=== PATIENT | male | born 1960 | race African-American/Black ===

== ENCOUNTER 2021-07-01 12:57 | Outpatient (REF) | payer MEDICARE, MEDICAID, SELFPAY ==
--- NOTE | ~2021-07-01 | XR_ITS ---
EXAMINATION: XR CERVICAL SPINE CLINICAL INFORMATION: Radiculopathy. Cervicalgia. COMPARISON: None TECHNIQUE: 5 views of the cervical spine were obtained. FINDINGS: There is no fracture or subluxation. Vertebral body height and alignment maintained. Mild disc space narrowing of C4-C5. Small multilevel endplate osteophytes. On the right and left there is neuroforaminal narrowing at C2-C3, C3-C4, and C4-C5. The prevertebral soft tissues are unremarkable. The atlantoaxial joint is well aligned. The dens is intact. The lung apices are clear. XR/XR cervical spine 4V IMPRESSION: Moderate degenerative changes of the cervical spine as above.
== END 2021-07-01 12:58 | disposition home or self-care (01) ==
LOC: HO.XRAY 12:57
PROVIDERS: PCP Internal Medicine Geriatric Medicine; Visit Provider Internal Medicine Geriatric Medicine
DX: M54.2 Cervicalgia (principal); M54.10 Radiculopathy, site unspecified
CPT/HCPCS: 72050

== ENCOUNTER 2022-07-26 13:10 | Emergency (ER) | payer MEDICARE, MEDICAID, SELFPAY ==
[2022-07-26 16:29] VITALS: BP 160/77; PULSE 86; RESP 18; TEMP 36.7; O2SAT 97; BMI 36.1
--- NOTE | 2022-07-26 16:30 | ED.GENADULT ---
HPI - General Adult General Chief complaint: Upper Respiratory Symptoms <Purvi Little MD - Last Filed: 07/26/22 16:31> Stated complaint: Sore Throat Weakness <Purvi Little MD - Last Filed: 07/26/22 16:31> Time Seen by Provider: 07/26/22 17:35 <Purvi Little MD - Last Filed: 07/26/22 16:31> Source: patient <Marj Brooks MD - Last Filed: 07/26/22 17:48> Mode of arrival: ambulatory <Marj Brooks MD - Last Filed: 07/26/22 17:48> Limitations: no limitations <Marj Brooks MD - Last Filed: 07/26/22 17:48> History of Present Illness HPI narrative: Patient comes emergency room complaining of cough and sore throat for about 5 days. Patient denies chest pain or shortness of breath. Patient denies fever chills <Marj Brooks MD - Last Filed: 07/26/22 17:48> Related Data Home medications: Previous Rx's Medication Instructions Recorded acetaminophen 500 mg capsule 500 mg PO Q6H PRN fever or pain 07/26/22 #20 caps <Purvi Little MD - Last Filed: 07/26/22 16:31> Allergies/adverse reactions: Allergies Allergy/AdvReac Type Severity Reaction Status Date / Time oxycodone [OXYCODONE] Allergy Unknown HIVES Verified 07/26/22 16:28 <Purvi Little MD - Last Filed: 07/26/22 16:31> Review of Systems Review of Systems: Constitutional : No Weight loss, No Fever, No Chills, No Night Sweats, No Fatigue, No Malaise ENT/Mouth : No Hearing loss, No Ear Pain, No Nasal Congestion, No Sinus Pain, No Hoarseness, complaining of mild sore throat, No Rhinorrhea, No Swallowing Difficulty Eyes: No Eye Pain, No Swelling, No Redness, No Foreign Body, No Discharge, No Vision Changes Cardiovascular : No Chest Pain, No SOB, No Dyspnea on Exertion, No Orthopnea, No Edema, No Palpitations Respiratory : No Cough, No Sputum, No Wheezing, No Smoke Exposure, No Dyspnea Gastrointestinal : No Nausea, No Vomiting, No Diarrhea, No Constipation, No abdominal Pain, No Hematochezia, No Melena Genitourinary : no irregular bleeding, No Dysuria, No Urinary Frequency, No Hematuria, No Urinary Incontinence, No Urgency, No Flank Pain, No Urinary Flow Changes, No Hesitancy Musculoskeletal : No joint pain, No Myalgias, No Joint Swelling Skin : No Skin Lesions, No rash Neuro : No Weakness, No Numbness, No Paresthesias, No Loss of Consciousness, No Dizziness, No Headache Psych : No Anxiety/Panic, No Depression, No SI/HI/AH/VH, No Social Issues, Heme/Lymph: No Bruising, No Bleeding,No Lymphadenopathy Endocrine : No Polyuria, No Polydipsia, No Temperature Intolerance <Marj Brooks MD - Last Filed: 07/26/22 17:48> [facility] Social History Social History: Social History Advance Directives: No Advance Directives Information Provided: Yes <Purvi Little MD - Last Filed: 07/26/22 16:31> Physical Exam ED Vital Signs: Vital Signs - 24 hr 07/26/22 16:29 Temperature 98.0 F Pulse Rate 86 Respiratory Rate 18 Blood Pressure 160/77 H Pulse Oximetry 97 Oxygen Delivery Method Room Air BMI result Body Mass Index 36.1 <Purvi Little MD - Last Filed: 07/26/22 16:31> Vital Signs - 24 hr 07/26/22 16:29 Temperature 98.0 F Pulse Rate 86 Respiratory Rate 18 Blood Pressure 160/77 H Pulse Oximetry 97 Oxygen Delivery Method Room Air BMI result Body Mass Index 36.1 <Marj Brooks MD - Last Filed: 07/26/22 17:48> Const Other: Appearance: Alert. Oriented X3. No acute distress. Eyes: Pupils equal, round and reactive to light. ENT: Pharynx normal. Mildly erythematous, no exudates, no abscesses, clear airway Neck: Normal inspection. Neck supple. No lymph nodes noted. No crepitus CVS: Normal heart rate and rhythm. Pulses normal. Normal S1 and S2 Respiratory: No respiratory distress. Breath sounds normal. No Wheezing. No rales Abdomen: Soft and nontender. No rigidity. No distention. Skin: Skin warm and dry. Normal skin color. Normal skin turgor. Extremities: No lower extremity edema. No Lacerations. No Rash Neuro: Oriented X 3. No motor deficit. No sensory deficit. Moving all extremities. No slurred speech. CN 2 through 12 grossly intact Psych: calm, cooperative, normal affect <Marj Brooks MD - Last Filed: 07/26/22 17:48> Course Course Course Narrative: 62M hx DM p/w cough, sore throat and fatigue since evening and decreased appetite. Otherwise, no SOB or chest pain. VITAL SIGNS: Reviewed. GENERAL: Well developed, well nourished, in no acute distress. HEAD: Normocephalic/atraumatic EYES: PERRLA, EOMI EARS: Ext canals without abnormality, TMs non-bulging and non-erythematous NOSE: Nares patent bilateral OROPHARYNX: no oral lesions noted, posterior pharynx clear and non-erythematous without noted tonsillar enlargement/erythema/exudates NECK: Supple, no adenopathy LUNGS: Normal breath sounds. No adventitious sounds or accessory muscle use. CARDIOVASCULAR: Regular rate and rhythm without noted murmurs ABDOMEN: Soft, non-tender, non-distended with bowel sounds. SKIN: Inspection of the skin reveals no rashes NEUROLOGIC: Alert and oriented x 4. Strength and sensation to light touch were grossly intact x 4. <Purvi Little MD - Last Filed: 07/26/22 16:31> Reevaluation(s) Reevaluation #1: Patient tested negative for influenza a and B, RSV, COVID and strep. Patient likely having a viral illness. Patient is well-appearing, oxygen saturation 97% on room air. <Marj Brooks MD - Last Filed: 07/26/22 17:48> Medical Decision Making Lab Data Labs: Lab Results 07/26/22 07/26/22 Range/Units 16:34 16:34 Influenza Type A (PCR) NEGATIVE (Negative) Influenza Type B (PCR) NEGATIVE (Negative) RSV RNA Qual (PCR) NEGATIVE (Negative) SARS-CoV-2 RNA (RT-PCR) NEGATIVE (Negative) S. pyogenes GrpA DANYEL Negative (Negative) <Purvi Little MD - Last Filed: 07/26/22 16:31> Lab Results 07/26/22 07/26/22 Range/Units 16:34 16:34 Influenza Type A (PCR) NEGATIVE (Negative) Influenza Type B (PCR) NEGATIVE (Negative) RSV RNA Qual (PCR) NEGATIVE (Negative) SARS-CoV-2 RNA (RT-PCR) NEGATIVE (Negative) S. pyogenes GrpA DANYEL Negative (Negative) <Marj Brooks MD - Last Filed: 07/26/22 17:48> Discharge Plan Discharge Clinical Impression: Acute viral pharyngitis <Purvi Little MD - Last Filed: 07/26/22 16:31> Patient Disposition: Home, Self-Care <Purvi Little MD - Last Filed: 07/26/22 16:31> Instructions: Pharyngitis (ED) <Purvi Little MD - Last Filed: 07/26/22 16:31> Additional Instructions: Please follow-up with your primary care physician tomorrow. If you have any worsening or new symptoms, please return to the emergency room or call 911 <Purvi Little MD - Last Filed: 07/26/22 16:31> Prescriptions: New acetaminophen 500 mg capsule 500 mg PO Q6H PRN (Reason: fever or pain) Qty: 20 0RF <Purvi Little MD - Last Filed: 07/26/22 16:31>
[2022-07-26 16:57] LABS: Strep A Nucleic Acid Negative (Negative)
[2022-07-26 17:26] LABS: Influenza A PCR NEGATIVE (Negative); Influenza B PCR NEGATIVE (Negative); Resp Syncy Virus RNA Qual PCR NEGATIVE (Negative); SARS COV2 PCR INHOUSE NEGATIVE (Negative)
== END 2022-07-26 18:17 | disposition home or self-care (01) ==
PROVIDERS: Student in an Organized Health Care Education/Training Program; Emergency Provider Emergency Medicine; PCP Internal Medicine Geriatric Medicine
DX: J02.9 Acute pharyngitis, unspecified (principal); R05.9 Cough, unspecified; Z20.822 Contact with and (suspected) exposure to COVID-19; Z79.899 Other long term (current) drug therapy
CPT/HCPCS: 0241U; 36415; 87651; 99282; 99283

== ENCOUNTER 2023-07-24 14:07 | Emergency (ER) | payer MEDICARE, MEDICAID, SELFPAY ==
--- NOTE | ~2023-07-24 | US_ITS ---
EXAMINATION: US ABDOMEN LIMITED CLINICAL INFORMATION: Right upper quadrant/epigastric pain and tenderness.. COMPARISON: None available. TECHNIQUE: Real-time imaging of the right upper quadrant abdominal viscera. FINDINGS: PANCREAS: The head and the body of pancreas is homogeneous echotexture. The tail is obscured by overlying gas. LIVER: There is a echogenic right hepatic lobe lesion measuring 1.7 x 1.0 x 1.1 cm probable hemangioma. The liver is normal in size. The liver contour is normal. Parenchymal echogenicity is mildly echogenic. There is no intrahepatic biliary duct dilatation seen. GALLBLADDER: Normal. The gallbladder is physiologically distended without evidence of stones, sludge, polyps, wall thickening or pericholecystic fluid. COMMON BILE DUCT: Normal in caliber measuring 0.5 cm in diameter. RIGHT KIDNEY: Normal. No hydronephrosis. No renal calculi or focal parenchymal lesions. The kidney measures 11.2 cm in maximum dimension. FREE FLUID: None. US/US abdomen limited IMPRESSION: Mild echogenic liver with a hyperechoic lesion right hepatic lobe suggestive of likely hemangioma. Correlate with CT with and without contrast. The gallbladder, right kidney and CBD is unremarkable.
--- NOTE | ~2023-07-24 | XR_ITS ---
EXAMINATION: XR CHEST CLINICAL INFORMATION: Chest pain. COMPARISON: No similar priors. TECHNIQUE: 2 views of the chest were obtained. FINDINGS: Normal appearance of the cardiomediastinal silhouette. No focal airspace opacities, neural effusion or pneumothorax. No acute osseous findings. Visualized upper abdomen is within normal limits. XR/XR chest 2V IMPRESSION: No acute cardiopulmonary findings.
--- NOTE | ~2023-07-24 | CT_ITS ---
EXAMINATION: CT ABDOMEN AND PELVIS WITHOUT CONTRAST CLINICAL INFORMATION: Epigastric pain COMPARISON: Ultrasound abdomen 07/24/2023 TECHNIQUE: Multidetector volumetric imaging was performed from the superior aspect of the liver through the pubic symphysis. Sagittal and coronal reformatted images were obtained on the technologist's workstation. This CT examination was performed using dose optimization techniques as appropriate, variously including the following: *Automated exposure control *Adjustment of mA and/or kV according to patient size (this includes techniques or standardized protocols for targeted exams where dose is matched to indication/reason for exam; i.e. extremities or head) *Use of iterative reconstruction technique DLP: 861 mGy-cm FINDINGS: LUNG BASES: Cluster of tree-in-bud changes are seen in the medial basilar segment of the right lower lobe. No focal consolidation or pleural effusions LIVER, GALLBLADDER, AND BILIARY TREE: The liver is enlarged at 18.8 cm but demonstrates normal shape and attenuation. No focal hepatic lesion or biliary ductal dilatation is present. Previously seen small 1.7 cm hyperechoic lesion adjacent to the common bile duct is not visualized on this exam. The gallbladder is unremarkable with no evidence of radiopaque gallstones, gallbladder wall thickening, or obvious pericholecystic inflammatory changes. PANCREAS: Unremarkable. SPLEEN: Spleen is enlarged at 12.8 cm. ADRENAL GLANDS: Unremarkable. KIDNEYS AND URETERS: The kidneys are normal in size, shape, and attenuation. No hydronephrosis, hydroureter, or calculi seen. There is bilateral moderate nonspecific perinephric stranding. BLADDER: Bladder wall thickening. GASTROINTESTINAL TRACT: A small hiatal hernia is present. The small and large bowel are unremarkable aside from scattered colonic diverticula without diverticulitis. The appendix is unremarkable. ABDOMINAL WALL: Small bilateral inguinal hernias seen containing only fat. There is a tiny periumbilical hernia seen containing only fat. LYMPH NODES: No retroperitoneal lymphadenopathy. VASCULAR: Calcific atherosclerotic change present in the aorta and iliofemoral vessels without aneurysm. PELVIC VISCERA: Moderate BPH. Seminal vesicles appear normal. OSSEOUS STRUCTURES: Unremarkable. CT/CT abdomen pelvis wo IV con IMPRESSION: 1. A cause for the patient's epigastric pain has not been found. 2. Incidental note made of hepatosplenomegaly, small hiatal hernia, bilateral inguinal hernias containing only fat, BPH and bladder wall thickening. 3. Cluster of tree-in-bud changes in the medial basilar segment of the right lower lobe consistent with inflammatory disease. 4. Previously seen small 1.7 cm hyperechoic lesion adjacent to the common bile duct is not visualized on this exam. If further characterization of this mass which on ultrasound has appearances consistent with a cavernous hemangioma is needed, MRI is the exam of choice. Fleischner guidelines were followed.
[2023-07-24 14:29] VITALS: BP 188/92; PULSE 96; RESP 18; TEMP 36.4; O2SAT 98; BMI 37.0
--- NOTE | 2023-07-24 14:29 | ED_ITS ---
HPI - Abdominal Pain General Chief Complaint: Abdominal Pain Stated Complaint: Abd pain Time Seen by Provider: 07/24/23 20:54 Source: patient Mode of arrival: ambulatory Limitations: no limitations History of Present Illness HPI narrative: Patient is a 63 old male who presents to the emergency department for evaluation of epigastric pain. He reports onset of symptoms approximately 3 days ago, described as a constant burning type of pain. He has experienced a decreased appetite associated with this. Intermittent nausea but no vomiting. Reports a history of similar pain in the past with acid reflux, though it is typically not this severe. He denies fevers, chills, URI symptoms, chest pain, shortness of breath, lower abdominal pain, constipation, diarrhea, hematochezia, melena, genitourinary symptoms. Related Data Home Medications Medication Instructions Recorded Confirmed allopurinol 100 mg tablet 100 mg PO QAM 07/24/23 07/24/23 amlodipine 10 mg tablet 10 mg PO QAM 07/24/23 07/24/23 aspirin 81 mg tablet,delayed 81 mg PO QAM 07/24/23 07/24/23 release atorvastatin 80 mg tablet 80 mg PO DAILY 07/24/23 07/24/23 azelastine 0.05 % eye drops 1 drp ophthalmic (eye) BID 07/24/23 07/24/23 dulaglutide 4.5 mg/0.5 mL mg subcut QWEEK 07/24/23 07/24/23 subcutaneous pen injector (Trulicity) empagliflozin 25 mg tablet 25 mg PO DAILY 07/24/23 07/24/23 (Jardiance) enalapril maleate 20 mg tablet 20 mg PO QAM 07/24/23 07/24/23 ezetimibe 10 mg tablet 10 mg PO DAILY 07/24/23 07/24/23 famotidine 20 mg tablet 20 mg PO QPM 07/24/23 07/24/23 gabapentin 300 mg capsule 300 mg PO TID 07/24/23 07/24/23 hydralazine 100 mg tablet 100 mg PO 07/24/23 insulin glargine 100 unit/mL (3 20 unit subcut 07/24/23 mL) subcutaneous pen (Lantus Solostar U-100 Insulin) insulin lispro 100 unit/mL 8 unit subcut TID 07/24/23 07/24/23 subcutaneous pen metoprolol succinate 50 mg 50 mg PO QAM 07/24/23 07/24/23 tablet,extended release 24 hr omeprazole 20 mg capsule,delayed 20 mg PO QAM 07/24/23 07/24/23 release spironolactone 25 mg tablet 25 mg PO DAILY 07/24/23 07/24/23 torsemide 20 mg tablet PO 07/24/23 Previous Rx's Medication Instructions Recorded acetaminophen 500 mg capsule 500 mg PO Q6H PRN fever or pain 07/26/22 #20 caps aluminum-mag hydroxide-simethicone 10 ml PO QID PRN indigestion 07/25/23 200 mg-200 mg-20 mg/5 mL oral susp #3,000 mL (Maalox Advanced) famotidine 20 mg tablet 20 mg PO DAILY #14 tabs 07/25/23 Allergies Allergy/AdvReac Type Severity Reaction Status Date / Time oxycodone [OXYCODONE] Allergy Unknown HIVES Verified 07/26/22 16:28 Review of Systems Review of Systems Yes all other systems are reviewed and are negative [facility] Past Medical History Attestation statement: The following information was validated with the patient. Source: old records reviewed Social History Smoked in Last 30 Days: No Use of substances other than those prescribed or required for medical reasons: No Advance Directives: No Advance Directives Information Provided: No Physical Exam ED Vital Signs: Vital Signs - 24 hr 07/24/23 14:29 07/24/23 20:33 07/24/23 20:39 Temperature 97.6 F 98.4 F Pulse Rate 96 101 H Respiratory Rate 18 16 Blood Pressure 188/92 H 201/92 H 193/98 H Pulse Oximetry 98 100 Oxygen Delivery Method Room Air Room Air 07/24/23 21:52 07/25/23 00:07 Temperature 98.4 F 98.3 F Pulse Rate 92 71 Respiratory Rate 18 18 Blood Pressure 182/97 H 170/83 H Pulse Oximetry 98 98 Oxygen Delivery Method Room Air Room Air BMI result Body Mass Index 37.0 Appearance: Alert.?Oriented to person, place and time. No acute distress.?Normal affect. Eyes: Pupils equal, round and reactive to light.? ENT: Pharynx normal.?? Neck: Normal inspection.? Neck supple.?? CVS: Heart sounds normal. Normal heart rate and rhythm.? Pulses normal.?? Respiratory: No respiratory distress.? Lung sounds clear to auscultation bilaterally?? Abdomen: Soft with right upper quadrant and epigastric tenderness to palpation. Negative Angelo sign. No rigidity. No guarding. No rebound tenderness. Normoactive bowel sounds. No pulsatile mass.?? Skin: Skin warm and dry.? Normal skin color.? Extremities: No lower extremity edema.? Neuro: Moves all extremities spontaneously. Sensation intact bilaterally. No focal neuro deficits. Ambulates with normal steady gait. Course Course Course Narrative: This is a rapid medical exam. Defer additional HPI, ROS, PE to prior provider. 63-year-old male with history of DM, HTN, neuropapthy, chronic back pain, arthritis here with upper abdominal pain, nausea since Monday. Will obtain labs, EKG, chest x-ray, COVID screen VSS Reevaluation(s) Reevaluation #1: Patient endorses some relief from GI cocktail, continues to have epigastric pain and tenderness. Ultrasound is unremarkable. Will obtain CT abdomen and pelvis for further evaluation. Time: 00:28 Reevaluation #2: CT is without identified cause for epigastric pain, incidentally noted, small hiatal hernia, bilateral fat containing inguninal hernias, 1.7 cm hyperechoic lesion adjacent to the common bile duct, on ultrasound appears consistent with a hemangioma. Reviewed these findings with patient. Discussed worrisome signs and symptoms that would warrant re-evaluation in the emergency department. Advised outpatient follow-up with primary care provider. Stable for discharge. Time: 01:34 Medical Decision Making Medical Decision Making MDM Narrative: Patient is a 63-year-old male with past medical history of hypertension, diabetes, hyperlipidemia, GERD, gout presenting to emergency department for evaluation of epigastric pain and nausea as per HPI. Upon physical examination he is noted to have tenderness upon palpation of the epigastrium and right upper quadrant with negative Angelo sign. Will obtain CBC to evaluate for leukocytosis/ anemia, CMP and lipase to evaluate for abnormal electrolytes /abnormal renal function/ abnormal hepatic/biliary function, EKG and troponin to evaluate for ischemia/ACS, right upper quadrant ultrasound and Urinalysis. Will trial GI cocktail for pain management Differential Diagnosis Differential Diagnoses: The differential diagnosis associated with the presentation includes (Cholecystitis, cholelithiasis, gastritis, PUD, pancreatitis, less likely ACS/pneumonia) Admission/Observation Consideration of admission/observation: Escalation of care including admission/observation considered (See narrative above in course narrative for further detail) Lab Data MDM Lab Attestation statement: I reviewed the patient's lab results. CBC is without leukocytosis, baseline microcytic anemia not meeting transfusion criteria. BMP with baseline renal function. LFTs and lipase normal. High sensitive troponin detectable blood within normal range. 07/24/23 14:37 07/24/23 14:37 Labs: Lab Results 07/24/23 07/25/23 Range/Units 14:37 00:29 WBC 8.1 (4.8-10.8) X10*3/uL RBC 4.91 (4.60-5.80) X10*6/uL Hgb 11.8 L (14.0-18.0) g/dl Hct 39.2 L (42.0-52.0) % MCV 79.8 L (80.0-98.0) fL MCH 24.0 L (27.0-33.0) pg MCHC 30.1 L (31.0-36.0) g/dl RDW 14.6 (11.0-16.0) % Plt Count 234 (160-400) X10*3/uL MPV 9.0 L (9.4-12.4) fL Immature Gran % (Auto) 0.5 H (0.0-0.4) % Neut % (Auto) 62.6 (45-73) % Lymph % (Auto) 25.5 (20-40) % [place] % (Auto) 8.3 (2-11) % Eos % (Auto) 2.7 (0-4) % Baso % (Auto) 0.4 (0-2) % Lymph # (Auto) 2.1 (1.2-4.9) X10*3/uL [place] # (Auto) 0.7 (0.1-1.2) X10*3/uL Eos # (Auto) 0.2 (0.0-0.4) X10*3/uL Baso # (Auto) 0.0 (0.0-0.2) X10*3/uL Abs Immat Gran (auto) 0.04 H (0.00-0.03) X10*3/uL Absolute Neuts (auto) 5.1 (2.0-8.3) x10*3/uL Absolute Nucleated RBC 0.000 (0.0-0.012) X10*3/uL Nucleated RBC % (auto) 0.0 (0.0-0.2) /100WBC PT 11.2 (11.1-13.3) SEC INR 0.9 (0.9-1.1) Sodium 140 (135-145) mmol/L Potassium 3.6 (3.3-5.1) mmol/L Chloride 106 (96-108) mmol/L Carbon Dioxide 27 (22-29) mmol/L Anion Gap 11 L (12-20) BUN 18 H (9-16) mg/dL Creatinine 1.90 H (0.5-1.4) mg/dL Estim Creat Clear Calc 48.8 Estimated GFR 36 Random Glucose 169 H (60-115) mg/dL Calcium 9.7 (8.4-10.2) mg/dL Total Bilirubin 0.4 (0.0-1.0) mg/dL Direct Bilirubin 0.1 (0.0-0.5) mg/dL AST 17 (5-37) U/L ALT 16 (0-40) U/L Alkaline Phosphatase 54 (39-117) U/L Troponin I High Sens 3.4 (<3.5-35.0) ng/L Total Protein 7.9 (6.5-8.0) g/dL Albumin 4.3 (3.5-5.0) g/dL Lipase 40 (8-78) U/L Urine Color Yellow Urine Appearance Clear Urine pH 6.5 (5.0-9.0) Ur Specific [place] 1.025 (1.005-1.025) Urine Protein 300 (3+) H (Neg-Trace) mg/dL Urine Glucose (UA) >=1000 H (Negative) mg/dL Urine Ketones Negative (Negative) mg/dL Urine Blood Trace H (Negative) Urine Nitrite Negative (Negative) Ur Leukocyte Esterase Negative (Negative) Urine RBC 0-2 (0-2) /HPF Urine WBC 0-5 (0-5) /HPF Ur Squamous Epith Cells 0-2 (0-2) /HPF Urine Bacteria None Seen (None Seen) Hyaline Casts 0-2 (0-2) /LPF COVID-19 (GISELLA) Negative (Negative) COVID-19 Clin Com See Note Independent Interpretation I performed an independent interpretation of an: EKG, Plain X-Ray (I personally interpreted chest x-ray and agree with radiologist impression) and Ultrasound Interpretation: Rate: 94 Rhythm:? Sinus rhythm with 1st degree AV block [place]:? Normal P waves.? SC interval 248?? Normal QRS complex.?? ST T wave :??No ST elevation, no ST depression qTC: 455 The study has been interpreted contemporaneously by me. Radiology Impression Discussion of test interpretation with radiology: I have reviewed the radiologist's reading. Radiologist Impression: US/US abdomen limited IMPRESSION: Mild echogenic liver with a hyperechoic lesion right hepatic lobe suggestive of likely hemangioma. Correlate with CT with and without contrast. The gallbladder, right kidney and CBD is unremarkable. XR/XR chest 2V IMPRESSION: No acute cardiopulmonary findings. CT/CT abdomen pelvis wo IV con IMPRESSION: 1. A cause for the patient's epigastric pain has not been found. 2. Incidental note made of hepatosplenomegaly, small hiatal hernia, bilateral inguinal hernias containing only fat, BPH and bladder wall thickening. 3. Cluster of tree-in-bud changes in the medial basilar segment of the right lower lobe consistent with inflammatory disease. 4. Previously seen small 1.7 cm hyperechoic lesion adjacent to the common bile duct is not visualized on this exam. If further characterization of this mass which on ultrasound has appearances consistent with a cavernous hemangioma is needed, MRI is the exam of choice. Independent Historian Clinical information obtained from an independent historian. History obtained from or confirmed by: Spouse (Present at bedside who confirms history) External Record Review External record reviewed: Outpatient record and Prior outpatient labs Medications Administered Discontinued Medications Generic Name Dose Route Start Last Admin Trade Name Freq PRN Reason Stop Dose Admin Al Hydroxide/Mg Hydroxide 30 ml 07/24/23 22:07 07/24/23 22:25 Magnesium Hydrox/Alum Hydrox 30 Ml Oral.Susp PO 07/24/23 22:08 30 ml ONCE ONE Administration Belladonna Alkaloids/Phenobarbital 10 ml 07/24/23 22:07 07/24/23 22:25 Phenobarb/Hyoscy/Atropine/Scop 10 Ml Elixir PO 07/24/23 22:08 10 ml ONCE ONE Administration Famotidine 20 mg 07/24/23 22:07 07/24/23 22:25 Famotidine 20 Mg Tablet PO 07/24/23 22:08 20 mg ONCE ONE Administration Discharge Plan Discharge Clinical Impression: Acute epigastric pain Patient Disposition: Home, Self-Care Instructions: Epigastric Pain (ED) Prescriptions: New famotidine 20 mg tablet 20 mg PO DAILY Qty: 14 0RF alum-mag hydroxide-simeth [Maalox Advanced] 200-200-20 mg/5 mL suspension 10 ml PO QID PRN (Reason: indigestion) Qty: 3000 0RF Rx Instructions: administer between meals and at bedtime No Action acetaminophen 500 mg capsule 500 mg PO Q6H PRN (Reason: fever or pain) Qty: 20 0RF atorvastatin 80 mg tablet 80 mg PO DAILY azelastine 0.05 % drops 1 drp ophthalmic (eye) BID torsemide 20 mg tablet PO metoprolol succinate 50 mg tablet extended release 24 hr 50 mg PO QAM enalapril maleate 20 mg tablet 20 mg PO QAM allopurinol 100 mg tablet 100 mg PO QAM aspirin 81 mg tablet,delayed release (DR/EC) 81 mg PO QAM spironolactone 25 mg tablet 25 mg PO DAILY famotidine 20 mg tablet 20 mg PO QPM amlodipine 10 mg tablet 10 mg PO QAM hydralazine 100 mg tablet 100 mg PO gabapentin 300 mg capsule 300 mg PO TID omeprazole 20 mg capsule,delayed release(DR/EC) 20 mg PO QAM insulin lispro 100 unit/mL insulin pen 8 unit subcut TID ezetimibe 10 mg tablet 10 mg PO DAILY insulin glargine [Lantus Solostar U-100 Insulin] 100 unit/mL (3 mL) insulin pen 20 unit subcut Jardiance 25 mg tablet 25 mg PO DAILY Trulicity 4.5 mg/0.5 mL pen injector subcut QWEEK Referrals: Name,MD Tavon [Primary Care Provider] -
--- NOTE | 2023-07-24 14:30 | ECG_ITS ---
Test Reason : CHEST PAIN Blood Pressure : / mmHG Vent. Rate : 094 BPM Atrial Rate : 094 BPM P-R Int : 248 ms QRS Dur : 094 ms QT Int : 364 ms P-R-T Axes : 039 -15 003 degrees QTc Int : 455 ms Sinus rhythm with 1st degree A-V block Otherwise normal ECG When compared with ECG of 20-MAR-2017 15:55, [place] interval has increased Referred By: Coco Jain Electronically Signed By:HERNANDEZ GONSALVES MD
[2023-07-24 14:45] LABS: MANUAL DIFF FLAG NO
[2023-07-24 14:47] LABS: Basophils Percent Auto 0.4 % (0-2); Eosinophils Absolute Auto 0.2 X10*3/uL (0.0-0.4); Eosinophils Percent Auto 2.7 % (0-4); Hematocrit 39.2 % (42.0-52.0); Hemoglobin 11.8 g/dl (14.0-18.0); Imm Gran Abs Auto 0.04 X10*3/uL (0.00-0.03); Imm Gran Pct Auto 0.5 % (0.0-0.4); Lymphocytes Absolute Auto 2.1 X10*3/uL (1.2-4.9); Lymphocytes Percent Auto 25.5 % (20-40); Mean Corpuscular HGB Conc 30.1 g/dl (31.0-36.0); Mean Corpuscular Volume 79.8 fL (80.0-98.0); Monocytes Absolute Auto 0.7 X10*3/uL (0.1-1.2); Monocytes Percent Auto 8.3 % (2-11); Neutrophils Absolute Auto 5.1 x10*3/uL (2.0-8.3); Neutrophils Percent Auto 62.6 % (45-73); Platelet Count 234 X10*3/uL (160-400); Red Blood Count 4.91 X10*6/uL (4.60-5.80); Red Cell Distribution Width 14.6 % (11.0-16.0); White Blood Count 8.1 X10*3/uL (4.8-10.8)
[2023-07-24 14:52] LABS: INTERNATIONAL NORM RATIO 0.9 (0.9-1.1); Prothrombin Time 11.2 SEC (11.1-13.3)
[2023-07-24 14:59] LABS: Alanine Aminotransferase 16 U/L (0-40); Albumin Level 4.3 g/dL (3.5-5.0); Alkaline Phosphatase 54 U/L (39-117); Anion Gap 11 (12-20); Aspartate Amino Transferase 17 U/L (5-37); Bilirubin Direct 0.1 mg/dL (0.0-0.5); Bilirubin Total 0.4 mg/dL (0.0-1.0); Blood Urea Nitrogen 18 mg/dL (9-16); Calcium 9.7 mg/dL (8.4-10.2); Carbon Dioxide 27 mmol/L (22-29); Chloride 106 mmol/L (96-108); Creatinine Clr Calc Pharmacy 48.8; Estimated Glomerular Filt Rate 36; Glucose Random 169 mg/dL (60-115); Lipase 40 U/L (8-78); Potassium 3.6 mmol/L (3.3-5.1); Sodium 140 mmol/L (135-145); Total Protein 7.9 g/dL (6.5-8.0)
[2023-07-24 15:02] LABS: COVID-19 Test Negative (Negative); IDNOW Serial# BCCEAD1C
[2023-07-24 15:07] LABS: Troponin-I High Sensitivity 3.4 ng/L (<3.5-35.0)
[2023-07-24 20:33] VITALS: BP 201/92; PULSE 101; RESP 16; TEMP 36.9; O2SAT 100
[2023-07-24 20:39] VITALS: BP 193/98
[2023-07-24 21:52] VITALS: BP 182/97; PULSE 92; RESP 18; TEMP 36.9; O2SAT 98
--- NOTE | 2023-07-24 21:53 | MHC.EDTECH ---
Hourly rounds and vitals completed,patients BP is elevated 182/97 RN made aware, Visitor at bedside and call alexandra within reach
[2023-07-24] MEDS: Magnesium Hydrox/Alum Hydrox 30 ML ORAL.SUSP PO (22:25)
[2023-07-24] MEDS: Famotidine 20 MG TABLET PO (22:25)
[2023-07-24] MEDS: PHENobarb/Hyoscy/Atropine/Scop 10 ML ELIXIR PO (22:25)
--- NOTE | 2023-07-24 22:26 | PC.NURSE ---
medication administered per provider order. pt c/o 04/06 upper abdominal pain at this time - will reassess. pt waiting for ultrasound to be completed at this time. bedside. call alexandra placed within reach.
[2023-07-25 00:07] VITALS: BP 170/83; PULSE 71; RESP 18; TEMP 36.8; O2SAT 98
--- NOTE | 2023-07-25 00:14 | MHC.EDTECH ---
Hourly rounds and vitals completed,patient ambulated to the bathroom with a steady gait. visitor at bedside and call alexandra within reach
--- NOTE | 2023-07-25 00:30 | MHC.EDTECH ---
Urine obtained and sent to lab.
[2023-07-25 00:36] LABS: Appearance Urine Clear; Color Urine Yellow; Glucose Urine UA >=1000 mg/dL (Negative); Leukocyte Esterase Urine Negative (Negative); Nitrite Urine Negative (Negative); PH 6.5 (5.0-9.0); Specific Gravity - Urine 1.025 (1.005-1.025); UMIC TRIGGER UACC YES; Urine Blood Trace (Negative); Urine Ketones Negative (Negative); Urine Protein 300 (3+) mg/dL (Neg-Trace)
[2023-07-25 00:48] LABS: Bacteria Urine None Seen (None Seen); Hyaline Casts Urine 0-2 /LPF (0-2); RBC Urine 0-2 /HPF (0-2); Squamous Epithelial Cell Urine 0-2 /HPF (0-2); WBC Urine 0-5 /HPF (0-5)
[2023-07-25 02:06] VITALS: BP 171/86; PULSE 86; RESP 18; TEMP 36.7; O2SAT 98
--- NOTE | 2023-07-25 02:07 | MHC.EDTECH ---
Hourly rounds and vitals completed, patient is awaiting discharge at this time
== END 2023-07-25 02:41 | disposition home or self-care (01) ==
PROVIDERS: Nurse Practitioner Family; Emergency Provider Emergency Medicine; PCP Internal Medicine Geriatric Medicine
DX: R10.13 Epigastric pain (principal); Z11.52 Encounter for screening for COVID-19
CPT/HCPCS: 36415; 71046; 74176; 76705; 80048; 80076; 81001; 83690; 84484; 85025; 85610; 87635; 93005; 99284; 99285

== ENCOUNTER 2023-07-31 11:45 | Outpatient (REF) | payer MEDICARE, MEDICAID, SELFPAY ==
[2023-07-31 14:27] LABS: Prostate Specific Antigen 1.62 ng/mL (<0.05-4.0)
== END 2023-07-31 11:46 | disposition home or self-care (01) ==
LOC: HO.HHCL 11:45
PROVIDERS: Visit Provider Internal Medicine Geriatric Medicine
DX: R35.1 Nocturia (principal); Z80.42 Family history of malignant neoplasm of prostate; Z12.5 Encounter for screening for malignant neoplasm of prostate
CPT/HCPCS: 36415; 84153

== ENCOUNTER 2023-09-11 11:36 | Outpatient (REF) | payer MEDICARE, MEDICAID, SELFPAY ==
--- NOTE | ~2023-09-11 | XR_ITS ---
EXAMINATION: XR LUMBOSACRAL SPINE CLINICAL INFORMATION: Pain COMPARISON: None available. TECHNIQUE: Three views of the lumbosacral spine. FINDINGS: Lumbar lordotic straightening. Vertebral body heights and disc spaces are maintained. Pedicles and SI joints within normal limits. No significant hip joint narrowings. Vascular calcifications. XR/XR lumbar spine 2-3V IMPRESSION: Lumbar lordotic straightening.
== END 2023-09-11 11:37 | disposition home or self-care (01) ==
LOC: HO.XRAY 11:36
PROVIDERS: PCP Internal Medicine Geriatric Medicine; Visit Provider Nurse Practitioner Family
DX: M54.50 Low back pain, unspecified (principal); K21.9 Gastro-esophageal reflux disease without esophagitis; R10.13 Epigastric pain; R11.0 Nausea; Z12.11 Encounter for screening for malignant neoplasm of colon
CPT/HCPCS: 72100; 99202

== ENCOUNTER 2023-09-11 11:36 | Outpatient (AMB) | payer MEDICARE, MEDICAID, SELFPAY ==
--- NOTE | 2023-09-11 11:37 | MHC.OFFVIS ---
Intake Vital Signs 09/11/23 11:38 Height 5 ft 9 in Weight 243 lb 13.3 oz BMI 36.0 BP 129/76 Blood Pressure Location Lt brachial Position Sitting Intake Visit Reasons: Colonoscopy Screening Intake Note: Patient presents to in office visit today as a new patient for colonoscopy screening. CC: Patient last colonoscopy done at [place], he does not remember when. He c/o GERD sometimes and he takes Maalox which he states it soothe the burning down. Chief Telephone Operator Required: No Accompanied by: Spouse Allergies oxycodone [OXYCODONE] Allergy (Unknown, Verified 09/11/23 11:41) HIVES HPI Colonoscopy Screening HPI Details 63 year old? male with past medical history of diabetes, CKD, hypertension, hyperlipidemia is here today for pre colonoscopy screening.? Patient was sent to us by his PCP.? ?Patient denies any melena, hematochezia, unintentional weight loss or ribbon like stools. Patient reports that he is moving his bowels well without any issues. Patient was seen in the ER for epigastric pain and burning. Patient was sent home on famotidine and Maalox. He has been using that when he has reflux. Taking omeprazole daily. Patient reports that he usually has reflux any time he eats. Patient occasionally reports nausea without vomiting. Denies any personal or family history of gastrointestinal disease, colon polyps, or cancer.? Denies history of difficulty with sedation or anesthesia in the past.? Negative for history of sleep apnea.? Denies any history of cardiac, pulmonary, or hepatic disease.?? No history of infectious ?diseases like hepatitis A, B, C, HIV or tuberculosis.? Patient on low-dose aspirin. COUNT INCLUDES [facility] Medical History (Updated 09/11/23 @ 16:49 by Melva Nathan [facility]) Hypercholesteremia HTN (hypertension) Diabetes mellitus CKD (chronic kidney disease) Surgical History H/O colonoscopy Family History Mother Thyroid cancer Brother Cancer of spine Brother Prostate cancer Father Cancer Social History Alcohol intake: former Comment: was social drinker Patient Tobacco Use Status: Former Tobacco user Review of Systems Const Denies weight gain and Denies weight loss ENT Reports no additional complaints, Reports dysphagia and Denies odynophagia Card Reports no additional complaints Resp Reports no additional complaints GI Denies abdominal pain, Denies belching, Denies melena, Denies bloating, Denies change in bowel habits, Reports dysphagia, Denies excessive flatus, Reports dyspepsia, Reports heartburn, Denies diarrhea, Denies loose stools, Denies nausea, Denies odynophagia and Denies vomiting Reports no additional complaints Musc Reports no additional complaints Neuro Reports no additional complaints Psych Reports no additional complaints Endo Reports no additional complaints Physical Exam Vital Signs: Last Vital Signs BP 129/76 09/11/23 11:38 BMI result Body Mass Index 36.0 Const General: healthy appearing, no acute distress and well developed Nutritional Appearance: well nourished Orientation/consciousness: patient oriented x3 Resp Effort & Inspection: normal respiratory effort, able to speak in complete sentences, no tracheal deviation and symmetric chest movement Auscultation: clear to auscultation bilaterally Cardio Rate: regular rate GI Inspection: Yes normal to inspection and No distended Palpation (GI): Soft to palpation, not firm, nontender and No hepatosplenomegaly present Auscultation: normal bowel sounds General: Yes no CVA tenderness Back/Spine/Pelvis Back: no CVA tenderness Skin General skin exam: elasticity normal, turgor normal and dry skin Neuro General: patient oriented x3 Psych Appearance: grossly normal Mental Status: mental status grossly normal Assessment & Plan Assessment & Plan (1) Screen for colon cancer: Code(s): Z12.11 - Encounter for screening for malignant neoplasm of colon (2) GERD (gastroesophageal reflux disease): Code(s): K21.9 - Gastro-esophageal reflux disease without esophagitis Qualifiers: Esophagitis presence: esophagitis presence not specified Qualified Code(s): K21.9 - Gastro-esophageal reflux disease without esophagitis (3) Postprandial epigastric pain: Code(s): R10.13 - Epigastric pain (4) Nausea: Code(s): R11.0 - Nausea Plan Patient denies any cardiac or respiratory symptoms.? Patient reports epigastric discomfort postprandially. Patient also reports dyspepsia without dysphagia or odynophagia. I will send him for upper endoscopy to rule out esophagitis, gastritis, duodenitis, gastric or peptic ulcers, Tovar's, H pylori. Omeprazole has not been helpful. Patient will start taking Nexium. Patient reports that Trulicity was increased, symptoms could be related to the increased dose. Patient is taking Lantus. Patient will take half the dose 2 nights and 1 night before the procedure. Denies any issues with anesthesia in the past.? Denies any history of sleep apnea.? No history infectious diseases in the past or present.? Patient is on low-dose aspirin.? No family or personal history of colon cancer or polyps.? Patient denies melena, hematochezia, unintentional weight loss or ribbon like stools.? Discussed at length the pre-procedure,? prep, diet & medications as well as what to expect prior, during and after the procedure.?? Stressed the importance of good bowel prep. ?Recommended the use of Vaseline or Calmoseptine OTC & baby wipes with bowel movements to promote comfort.? ?Patient verbalizes understanding and agrees to plan of care.? He was given the opportunity to ask questions and all questions answered.? We will see him after the procedure.? Orders: Referrals Urology Referral N40.0 - Benign prostatic hyperplasia without lower urinary tract symptoms Medications: New esomeprazole magnesium (Nexium) 40 mg PO DAILY 30 caps 5RF K21.9 - Gastro-esophageal reflux disease without esophagitis Coding Level of Care Code New Pt Level 4 (29830) Diagnoses Screen for colon cancer Z12.11 Gastroesophageal reflux disease, unspecified whether esophagitis present K21.9 Esophagitis presence: esophagitis presence not specified Postprandial epigastric pain R10.13 Nausea R11.0 Time Spent (min) 45 Comment 30 minutes spent with patient and additional 15 minutes spent reviewing his records
[2023-09-11 11:38] VITALS: BP 129/76; BMI 36.0
== END 2023-09-11 12:27 | disposition home or self-care (01) ==
PROVIDERS: PCP Internal Medicine Geriatric Medicine; Visit Provider Nurse Practitioner Family
DX: K21.9 Gastro-esophageal reflux disease without esophagitis (principal); R11.0 Nausea; Z12.11 Encounter for screening for malignant neoplasm of colon
CPT/HCPCS: 99204

== ENCOUNTER 2023-11-02 12:09 | Outpatient (REF) | payer MEDICARE, MEDICAID, SELFPAY ==
[2023-11-02 16:28] LABS: Alanine Aminotransferase 25 U/L (0-40); Albumin Level 4.6 g/dL (3.5-5.0); Alkaline Phosphatase 65 U/L (39-117); Anion Gap 12 (12-20); Aspartate Amino Transferase 19 U/L (5-37); Bilirubin Total 0.3 mg/dL (0.0-1.0); Blood Urea Nitrogen 48 mg/dL (9-16); Calcium 9.9 mg/dL (8.4-10.2); Carbon Dioxide 32 mmol/L (22-29); Chloride 97 mmol/L (96-108); Cholesterol 143 mg/dL (<200); Estimated Glomerular Filt Rate 25; Glucose Random 87 mg/dL (60-115); HDL Cholesterol 32 mg/dL (>40); LDL Cholesterol Calculated 63 mg/dL (<100); Potassium 4.1 mmol/L (3.3-5.1); Sodium 137 mmol/L (135-145); Total Protein 8.1 g/dL (6.5-8.0); Triglycerides 243 mg/dL (<150)
[2023-11-02 16:46] LABS: Creatinine Urine 80.82 mg/dL
== END 2023-11-02 12:10 | disposition home or self-care (01) ==
LOC: HO.HHCL 12:09
PROVIDERS: Visit Provider Internal Medicine Geriatric Medicine
DX: I12.9 Hypertensive chronic kidney disease with stage 1 through stage 4 chronic kidney disease, or unspecified chronic kidney disease (principal); E11.22 Type 2 diabetes mellitus with diabetic chronic kidney disease; N18.31 Chronic kidney disease, stage 3a; Z79.4 Long term (current) use of insulin
CPT/HCPCS: 36415; 80053; 80061; 82043; 82570

== ENCOUNTER 2023-12-14 09:07 | Day surgery (SDC) | payer MEDICARE, MEDICAID, SELFPAY ==
[2023-12-14 09:57] LABS: Glucose, Whole Blood 140 mg/dL (60-115)
--- NOTE | 2023-12-14 10:01 | P.CONAN_ITS ---
[facility] Past Medical History Medical History (Updated 09/11/23 @ 16:49 by Melva Nathan [facility]) Hypercholesteremia HTN (hypertension) Diabetes mellitus CKD (chronic kidney disease) Family History Family History Mother Thyroid cancer Brother Cancer of spine Brother Prostate cancer Father Cancer Family history of problems with anesthesia: No Surgical History Surgical History H/O colonoscopy History of Problems with Anesthesia: No Social History Social History Alcohol intake: former Comment: was social drinker Patient Tobacco Use Status: Former Tobacco user Advance Directives: No Advance Directives Information Provided: Yes Meds Allergies Allergy/AdvReac Type Severity Reaction Status Date / Time oxycodone [OXYCODONE] Allergy Unknown HIVES Verified 09/11/23 11:41 Home Medications ?Medication ?Instructions ?Recorded ?Confirmed ?Last Taken ?Type allopurinol 100 mg tablet 100 mg PO QAM 07/24/23 07/24/23 07/23/23 History amlodipine 10 mg tablet 10 mg PO QAM 07/24/23 07/24/23 07/23/23 History aspirin 81 mg tablet,delayed 81 mg PO QAM 07/24/23 07/24/23 07/23/23 History release atorvastatin 80 mg tablet 80 mg PO DAILY 07/24/23 07/24/23 07/23/23 History azelastine 0.05 % eye drops 1 drp ophthalmic (eye) BID 07/24/23 07/24/23 07/23/23 History empagliflozin 25 mg tablet 25 mg PO DAILY 07/24/23 07/24/23 07/23/23 History (Jardiance) enalapril maleate 20 mg tablet 20 mg PO QAM 07/24/23 07/24/23 07/22/23 History ezetimibe 10 mg tablet 10 mg PO DAILY 07/24/23 07/24/23 07/23/23 History gabapentin 300 mg capsule 300 mg PO TID 07/24/23 07/24/23 07/22/23 History hydralazine 100 mg tablet 100 mg PO 07/24/23 07/22/23 History insulin lispro 100 unit/mL 8 unit subcut TID 07/24/23 07/24/23 07/23/23 History subcutaneous pen metoprolol succinate 50 mg 50 mg PO QAM 07/24/23 07/24/23 07/23/23 History tablet,extended release 24 hr spironolactone 25 mg tablet 25 mg PO DAILY 07/24/23 07/24/23 07/23/23 History torsemide 20 mg tablet PO 07/24/23 07/22/23 History dulaglutide 3 mg/0.5 mL mg subcut QWEEK 09/11/23 Unknown History subcutaneous pen injector (Trulicity) insulin glargine 100 unit/mL (3 20 unit subcut DAILY 09/11/23 Unknown History mL) subcutaneous pen (Lantus Solostar U-100 Insulin) Exam Pertinent Lab Results Pertinent Lab Results: Laboratory Tests 12/14/23 09:54 POC Glucose 140 H Airway Mallampati Class: III TM Dist: >3cm Neck ROM: Full Assessment and Plan Assessment Anesthesia Assessment: Anesthesia Plan Discussed and Chart Reviewed Final Anesthetic Review Family History of Problems with Anesthesia: No History of Problems with Anesthesia: No NPO: Yes ASA Class: III Final Preanesthetic Review: No Changes in Pt Med Stat, Meds/Allgs Chart Reviewed, Consent Obtained/Reviewed and Anes Risks/Benef Reviewed Patient Risk: Intermediate Procedure Risk: Low Anesthetic Plan Anesthetic Plan: TIVA Disposition: Standard PACU
[2023-12-14 10:10] VITALS: BMI 36.6
[2023-12-14 10:14] VITALS: PULSE 89; RESP 18; TEMP 36.7; O2SAT 95
[2023-12-14 10:18] VITALS: BP 192/81; PULSE 89; RESP 18; TEMP 36.7; O2SAT 95
--- NOTE | 2023-12-14 10:23 | PC.NURSE ---
dr. garcia notified of elevated bp 192/81 hr 71 nsr pac's 10/10 h/a sinus on right.
[2023-12-14] MEDS: Acetaminophen 1,000 MG/100 ML PIGGYBACK 400 MG IV (10:31)
--- NOTE | 2023-12-14 11:24 | MHC.SHP ---
Pre-Procedural Eval Section A - 24 Hr Update-Section A only Date of Service: 12/14/23 Section B - Complete if H&P > 30 days Chief Complaint: gerd,screening Details of Present Illness: Hypercholesteremia HTN (hypertension) Diabetes mellitus CKD (chronic kidney disease) Surgical History H/O colonoscopy Family History Mother Thyroid cancer Brother Cancer of spine Brother Prostate cancer Father Cancer Allergies: Allergies Allergy/AdvReac Type Severity Reaction Status Date / Time oxycodone [OXYCODONE] Allergy Unknown HIVES Verified 09/11/23 11:41 Review of Systems Review of Systems Comment: Ten point ROS negative Exam Exam Comment: Gen appear: No acute distress HEENT: no icterus Chest: No overt resp distress Abd: soft, nontender, nondistended Psych: Stable affect, answering questions appropriately Neuro: A/Ox3 noted to move all extremities spontaneously Ext: no peripheral edema Plan Diagnosis/Plan: Unchanged I have reviewed the history and physical and performed a pertinent physical examination on my patient. No changes have occurred unless specified. Time Spent With Patient Time: Total time managing care of this patient today ____ minutes.
--- NOTE | 2023-12-14 12:31 | P.OP_ITS ---
Operative Note Operative Note Date of Service: 12/14/23 Narrative: Procedure: Upper endoscopy and colonoscopy Indication: Unintentional weight loss Endoscopist: Yady Tran MD Anesthesia Provider: Nilda Maria CRNA Anesthesia type: MAC Instrument: [id number] and [id number] and [id number] EGD Procedure:?? The procedure, indications, preparation and potential complications were reviewed with the patient, who indicated understanding and gave written informed consent to proceed. Physical exam was performed. The endoscope was introduced through the mouth, and advanced to the 3rd part of the duodenal. The mucosa was carefully examined on slow withdrawal of the endoscope. The patient tolerated the procedure well. There were no immediate complications.? EGD Findings:? * Esophagus:? Diffuse whitish exudates and plaques in the esophagus compatible with Winter esophagitis. Cold forceps biopsies were taken for histology. The Z-line was at 38 cm. * Stomach:? Erythema and small erosions in the gastric antrum were noted. Random cold forceps biopsies were taken to rule out H pylori. Numerous gastric polyps were noted in the cardia and fundus. Cold forceps biopsies were taken from the larger ones. * Duodenum:? Erythema and edema was noted in the duodenal bulb. Remaining duodenal mucosa was normal. Colonoscopy Procedure:? The patient was then turned for the colonoscopy. A digital rectal exam was performed which was normal.? A distal attachment cap was affixed to the tip of the scope and the colonoscope was then inserted through the anus and advanced through the colon and advanced to the hepatic flexure.? The cecal pouch could be seen but not intubated. Ileocecal valve was visualized and normal. Multiple attempts were made to intubate the cecum with pressure, position change, scope change, adding the procedure time up to 45 minutes in total.? Mucosa was carefully examined under high definition white light as the instrument was slowly withdrawn in a retrograde panoramic fashion. Retroflexion was performed in rectum. The procedure was difficult and could not be completed as above. There were no immediate obvious complications. The quality of the prep was BBPS: N/A+2+2 = cecum not evaluated Withdrawal time N/A Limitations: cecum not evaluated Findings: Mucosa: Liquid stool was visualized throughout the colon, which was suctioned. Protruding lesions: * Two sessile polyps of size 3-7 mm was noted in the left colon. Cold snare polypectomy was performed. The polyps were completely removed and retrieved. * Medium internal hemorrhoids without stigmata of recent bleeding. Impression: 1. Winter esophagitis 2. Gastritis 3. Duodenitis 4. Incomplete colo 5. Normal colon mucosa 6. Left colon polyps 6. Internal hemorrhoids Recommendations:?? * Follow-up path results * Start fluconazole for 14 days * Avoid NSAIDs * Colonoscopy not completed as above. Will be booked with a different endoscopist. May need to start with an adult scope and supine, colowrap if available.
[2023-12-14 12:40] VITALS: BP 109/75; PULSE 78; RESP 16; TEMP 36.7; O2SAT 98
[2023-12-14 12:55] VITALS: BP 161/81; PULSE 83; RESP 18; TEMP 36.7; O2SAT 95
== END 2023-12-14 13:48 | disposition home or self-care (01) ==
PROVIDERS: PCP Internal Medicine Geriatric Medicine; Visit Provider Internal Medicine
PROC: (CPT 45385; principal; 2023-12-14 09:00)
DX: Z12.11 Encounter for screening for malignant neoplasm of colon (principal); D12.4 Benign neoplasm of descending colon; K64.8 Other hemorrhoids; R63.4 Abnormal weight loss; K21.00 Gastro-esophageal reflux disease with esophagitis, without bleeding; B37.81 Candidal esophagitis; K29.70 Gastritis, unspecified, without bleeding; K29.80 Duodenitis without bleeding; K31.7 Polyp of stomach and duodenum; I12.9 Hypertensive chronic kidney disease with stage 1 through stage 4 chronic kidney disease, or unspecified chronic kidney disease; E11.22 Type 2 diabetes mellitus with diabetic chronic kidney disease; N18.9 Chronic kidney disease, unspecified; Z53.09 Procedure and treatment not carried out because of other contraindication
CPT/HCPCS: 45385; 43239; 36415; 82947; 85652; 88305; 88312; 88313; 88342; J0131; J2704

== ENCOUNTER → 2023-12-14 09:07 | Outpatient (BNV) | payer MEDICARE, MEDICAID, SELFPAY | PROVIDERS: PCP Internal Medicine Geriatric Medicine; Visit Provider Internal Medicine | DX: Z12.11 Encounter for screening for malignant neoplasm of colon (principal); K21.9 Gastro-esophageal reflux disease without esophagitis; K29.90 Gastroduodenitis, unspecified, without bleeding; B37.81 Candidal esophagitis; K63.5 Polyp of colon; K64.8 Other hemorrhoids | CPT/HCPCS: 43239; 45385 ==

== ENCOUNTER 2023-12-14 16:15 | Outpatient (REF) | payer MEDICARE, MEDICAID, SELFPAY ==
[2023-12-14 18:59] LABS: Erythrocyte Sedimentation Rate 18 MM/HR (0-15)
== END 2023-12-14 16:16 | disposition home or self-care (01) ==
LOC: HO.HHCL 16:15
PROVIDERS: Visit Provider Internal Medicine
DX: Z13.89 Encounter for screening for other disorder (principal)
CPT/HCPCS: 36415; 85652

== ENCOUNTER 2024-01-03 09:10 | Outpatient (REF) | payer MEDICARE, MEDICAID, SELFPAY ==
--- NOTE | ~2024-01-03 | CT_ITS ---
EXAMINATION: CT HEAD WITHOUT CONTRAST CLINICAL INFORMATION: New onset of throbbing headache. COMPARISON: None available. TECHNIQUE: Contiguous axial imaging was performed from the skull base to vertex without intravenous administration of contrast. This CT examination was performed using dose optimization techniques as appropriate, variously including the following: *Automated exposure control *Adjustment of mA and/or kV according to patient size (this includes techniques or standardized protocols for targeted exams where dose is matched to indication/reason for exam; i.e. extremities or head) *Use of iterative reconstruction technique DLP: 934 mGy-cm FINDINGS: Mild diffuse commensurate prominence of ventricles and sulci is noted. No intercranial hemorrhage, tumors or acute infarcts visualized. Dense segmental calcific atherosclerosis of the cavernous portions of the internal carotid arteries and focal calcific plaques of the intradural segments of the vertebral arteries. The orbits and globes are normal in appearance aside from incidental senescent calcifications of the right globe. No extra cranial soft tissue inflammatory changes identified. No significant opacification of the visualized paranasal sinuses, mastoid air cells and middle ear cavities. CT/CT head/brain wo IV con IMPRESSION: No acute intracranial abnormalities.
== END 2024-01-03 09:11 | disposition home or self-care (01) ==
LOC: HO.CT 09:10
PROVIDERS: PCP Internal Medicine; Visit Provider Internal Medicine
DX: R51.9 Headache, unspecified (principal)
CPT/HCPCS: 70450

== ENCOUNTER 2024-01-09 14:35 | Outpatient (AMB) | payer MEDICARE, MEDICAID, SELFPAY ==
--- NOTE | 2024-01-09 14:37 | A.OFFVIS_ITS ---
Vital Signs 01/09/24 14:38 Height 5 ft 9 in Weight 251 lb 5.231 oz BMI 37.1 BP 153/80 H Blood Pressure Location Lt brachial Position Sitting Pulse 78 Intake Visit Reasons: S/P EGD, [place]; Dr. Tran Intake Note: Tejas returns to in office follow up s/p EGD and colonoscopy. CC: Patient reports occasional acid reflux depending on what he eats. Scientific Affairs Manager Required: No Accompanied by: Spouse Allergies oxycodone [OXYCODONE] Allergy (Unknown, Verified 01/09/24 14:46) HIVES HPI HPI S/P EGD, [place]; Dr. Tran: Details: LAST VISIT Screen for colon cancer GERD (gastroesophageal reflux disease) Postprandial epigastric pain Nausea Plan Patient denies any cardiac or respiratory symptoms.? Patient reports epigastric discomfort postprandially. Patient also reports dyspepsia without dysphagia or odynophagia. I will send him for upper endoscopy to rule out esophagitis, gastritis, duodenitis, gastric or peptic ulcers, Tovar's, H pylori. Omeprazole has not been helpful. Patient will start taking Nexium. Patient reports that Trulicity was increased, symptoms could be related to the increased dose. Patient is taking Lantus. Patient will take half the dose 2 nights and 1 night before the procedure. Denies any issues with anesthesia in the past.? Denies any history of sleep apnea.? No history infectious diseases in the past or present.? Patient is on low-dose aspirin.? No family or personal history of colon cancer or polyps.? Patient denies melena, hematochezia, unintentional weight loss or ribbon like stools.? Discussed at length the pre-procedure,? prep, diet & medications as well as what to expect prior, during and after the procedure.?? Stressed the importance of good bowel prep. ?Recommended the use of Vaseline or Calmoseptine OTC & baby wipes with bowel movements to promote comfort.? ?Patient verbalizes understanding and agrees to plan of care.? He was given the opportunity to ask questions and all questions answered.? We will see him after the procedure.? Orders Referrals Urology Referral N40.0 Medications New esomeprazole magnesium (Nexium) 40 mg PO DAILY 30 caps 5RF K21.9 UPPER ENDOSCOPY AND COLONOSCOPY EGD Findings:? * Esophagus:? Diffuse whitish exudates and plaques in the esophagus compatible with Winter esophagitis. Cold forceps biopsies were taken for histology. The Z-line was at 38 cm. * Stomach:? Erythema and small erosions in the gastric antrum were noted. Random cold forceps biopsies were taken to rule out H pylori. Numerous gastric polyps were noted in the cardia and fundus. Cold forceps biopsies were taken from the larger ones. * Duodenum:? Erythema and edema was noted in the duodenal bulb. Remaining duodenal mucosa was normal. Colonoscopy Procedure:? The patient was then turned for the colonoscopy. A digital rectal exam was performed which was normal.? A distal attachment cap was affixed to the tip of the scope and the colonoscope was then inserted through the anus and advanced through the colon and advanced to the hepatic flexure.? The cecal pouch could be seen but not intubated. Ileocecal valve was visualized and normal. Multiple attempts were made to intubate the cecum with pressure, position change, scope change, adding the procedure time up to 45 minutes in total.? Mucosa was carefully examined under high definition white light as the instrument was slowly withdrawn in a retrograde panoramic fashion. Retroflexion was performed in rectum. The procedure was difficult and could not be completed as above. There were no immediate obvious complications. The quality of the prep was BBPS: N/A+2+2 = cecum not evaluated Withdrawal time N/A Limitations: cecum not evaluated Findings: Mucosa: Liquid stool was visualized throughout the colon, which was suctioned. Protruding lesions: * Two sessile polyps of size 3-7 mm was noted in the left colon. Cold snare polypectomy was performed. The polyps were completely removed and retrieved. * Medium internal hemorrhoids without stigmata of recent bleeding.Impression: 1. Winter esophagitis 2. Gastritis 3. Duodenitis 4. Incomplete colo 5. Normal colon mucosa 6. Left colon polyps 6. Internal hemorrhoids Recommendations:?? * Follow-up path results * Start fluconazole for 14 days * Avoid NSAIDs * Colonoscopy not completed as above. Will be booked with a different endoscopist. May need to start with an adult scope and supine, colowrap if available. PATHOLOGY RESULTS Diagnosis A. Stomach, random, biopsy: Antral-type and oxyntic mucosa with mild chronic, focally active, inflammation; no Helicobacter organisms seen. B. Stomach, polyps: Fundic gland and hyperplastic mucosal polyps with background mild chronic inactive inflammation; no Helicobacter organisms seen. C. Esophagus, biopsy: Winter esophagitis. D. Colon, left, polypectomies: - Tubular adenoma; negative for high-grade dysplasia or carcinoma. - Hyperplastic mucosal polyp TODAY'S VISIT Patient is here today for follow-up and to discuss upper endoscopy and colonoscopy results. Patient denies any ill effects from the prep, anesthesia or procedure itself. Patient had suboptimal prep unable to get through to cecum. Colonoscopy will be repeated in 6 months. Upper endoscopy biopsy natalie wed no H pylori, however Winter esophagitis noted and patient was placed on antifungal therapy. Patient reports that he finish all of the prep required for colonoscopy. Patient reports that occasionally he might have acid reflux, however he states that it depends on what he eats. Patient denies any melena, hematochezia. Reports that he is moving his bowels daily. Patient feels like he empties his bowels well. Patient states that he completed all of the prep that was ordered for him. [facility] Medical History (Updated 01/09/24 @ 20:10 by Melva Nathan [facility]) Winter esophagitis Tubular adenoma Hypercholesteremia HTN (hypertension) Diabetes mellitus CKD (chronic kidney disease) Surgical History History of esophagogastroduodenoscopy (EGD) H/O colonoscopy Family History Mother Thyroid cancer Brother Cancer of spine Brother Prostate cancer Father Cancer Social History Alcohol intake: former Comment: was social drinker Patient Tobacco Use Status: Former Tobacco user Review of Systems Const Denies weight gain and Denies weight loss ENT Reports no additional complaints, Denies dysphagia and Denies odynophagia Card Reports no additional complaints Resp Reports no additional complaints GI Denies abdominal pain, Denies belching, Denies melena, Denies bloating, Denies change in bowel habits, Denies dysphagia, Denies excessive flatus, Denies dyspepsia, Reports heartburn, Denies diarrhea, Denies loose stools, Denies nausea, Denies odynophagia and Denies vomiting Reports no additional complaints Musc Reports no additional complaints Neuro Reports no additional complaints Psych Reports no additional complaints Endo Reports no additional complaints Physical Exam Vital Signs: Last Vital Signs Pulse 78 01/09/24 14:38 BP 153/80 H 01/09/24 14:38 BMI result Body Mass Index 37.1 Const General: healthy appearing and no acute distress Nutritional Appearance: obese Orientation/consciousness: patient oriented x3 Resp Effort & Inspection: normal respiratory effort, able to speak in complete sentences, no tracheal deviation and symmetric chest movement Auscultation: clear to auscultation bilaterally Cardio Rate: regular rate GI Inspection: Yes normal to inspection, No distended and Yes obesity Palpation (GI): Soft to palpation, not firm, nontender and No hepatosplenomegaly present Auscultation: normal bowel sounds General: Yes no CVA tenderness Back/Spine/Pelvis Back: no CVA tenderness Skin General skin exam: elasticity normal, turgor normal and dry skin Neuro General: patient oriented x3 Psych Appearance: grossly normal Mental Status: mental status grossly normal Assessment & Plan Assessment & Plan (1) Winter esophagitis: Code(s): B37.81 - Candidal esophagitis Category: Medical (2) Tubular adenoma: Code(s): D36.9 - Benign neoplasm, unspecified site Category: Medical (3) Status post colonoscopy: Code(s): Z98.890 - Other specified postprocedural states (4) Constipation: Code(s): K59.00 - Constipation, unspecified Qualifiers: Constipation type: slow transit constipation Qualified Code(s): K59.01 - Slow transit constipation Plan Patient will start taking Senokot. Patient's spouse states that patient took that in the past. Increase fluid intake and activity to promote better bowel motility. Patient can continue taking Nexium daily. Avoid dietary triggers and late night snacking. Staying upright for minimum 3 hours after meals discussed with patient will increase Pepcid to 40 mg daily and we will re-evaluate next visit. Patient will return in March so we can discuss going for colonoscopy. Message sent to surgical schedulers to schedule procedure for May. Both patient and his spouse are agreeable to plan of care and verbalize understanding of instructions. They were given the opportunity to ask questions and all questions answered. Thank you for allowing me to participate in his care Medications: New sennosides (Natural Senna Laxative) 17.2 mg (2 x 8.6 mg) PO BEDTIME 60 tabs 3RF constipation K59.00 - Constipation, unspecified famotidine 40 mg PO BEDTIME 30 tabs 3RF K21.9 - Gastro-esophageal reflux disease without esophagitis Discontinued famotidine Discontinued Reason: Doctor's Order 20 mg PO DAILY 14 tabs 0RF Coding Level of Care Code Est Pt Level 4 (20390) Diagnoses Winter esophagitis B37.81 Tubular adenoma D36.9 Status post colonoscopy Z98.890 Slow transit constipation K59.01 Constipation type: slow transit constipation Time Spent (min) 35 Comment 20 minutes spent with patient and additional 15 minutes spent reviewing his records
[2024-01-09 14:38] VITALS: BP 153/80; PULSE 78; BMI 37.1
== END 2024-01-09 15:08 | disposition home or self-care (01) ==
PROVIDERS: PCP Internal Medicine; Referring Provider Internal Medicine; Visit Provider Nurse Practitioner Family
DX: B37.81 Candidal esophagitis (principal); D36.9 Benign neoplasm, unspecified site; Z98.890 Other specified postprocedural states; K59.01 Slow transit constipation
CPT/HCPCS: 99214

== ENCOUNTER 2024-01-09 15:29 | Outpatient (REF) | payer MEDICARE, MEDICAID, SELFPAY ==
[2024-01-09 18:50] LABS: Anion Gap 19 (12-20); Blood Urea Nitrogen 64 mg/dL (9-16); Calcium 9.5 mg/dL (8.4-10.2); Carbon Dioxide 22 mmol/L (22-29); Chloride 100 mmol/L (96-108); Estimated Glomerular Filt Rate 18; Glucose Random 217 mg/dL (60-115); Sodium 137 mmol/L (135-145)
== END 2024-01-09 15:30 | disposition home or self-care (01) ==
LOC: HO.HHCL 15:29
PROVIDERS: Visit Provider Internal Medicine Geriatric Medicine
DX: N18.30 Chronic kidney disease, stage 3 unspecified (principal); I10 Essential (primary) hypertension; R60.0 Localized edema
CPT/HCPCS: 36415; 80048; 99212

== ENCOUNTER 2024-03-22 15:34 | Outpatient (REF) | payer MEDICARE, MEDICAID, SELFPAY ==
[2024-03-22 17:54] LABS: Alanine Aminotransferase 27 U/L (0-40); Albumin Level 4.6 g/dL (3.5-5.0); Alkaline Phosphatase 61 U/L (39-117); Anion Gap 13 (12-20); Aspartate Amino Transferase 23 U/L (5-37); Bilirubin Total 0.4 mg/dL (0.0-1.0); Blood Urea Nitrogen 26 mg/dL (9-16); Calcium 10.5 mg/dL (8.4-10.2); Carbon Dioxide 28 mmol/L (22-29); Chloride 101 mmol/L (96-108); Estimated Glomerular Filt Rate 30; Glucose Random 180 mg/dL (60-115); Potassium 4.2 mmol/L (3.3-5.1); Sodium 138 mmol/L (135-145); Total Protein 8.3 g/dL (6.5-8.0)
[2024-03-22 18:07] LABS: HIV AB/AG Nonreactive (Nonreactive); HIV Num 1 0.05 S/CO (0.00-0.99)
== END 2024-03-22 15:35 | disposition home or self-care (01) ==
LOC: HO.HHCL 15:34
PROVIDERS: Visit Provider Internal Medicine Geriatric Medicine
DX: I10 Essential (primary) hypertension (principal); E11.22 Type 2 diabetes mellitus with diabetic chronic kidney disease; Z79.4 Long term (current) use of insulin; B37.81 Candidal esophagitis
CPT/HCPCS: 36415; 80053; 87389

== ENCOUNTER 2024-05-15 09:27 | Outpatient (AMB) | payer MEDICARE, MEDICAID, SELFPAY ==
[2024-05-15 09:30] VITALS: BP 112/56; PULSE 79; O2SAT 98; BMI 37.4
--- NOTE | 2024-05-15 09:30 | MHC.OFFVIS ---
Vital Signs 05/15/24 09:30 Height 5 ft 9 in Weight 253 lb BMI 37.4 BP 112/56 L Blood Pressure Location Rt brachial Position Sitting Pulse 79 Pulse Source Pulse Oximeter Pulse Oximetry (%) 98 Oxygen Delivery Method Room Air Intake Visit Reasons: Chronic low back pain Allergies oxycodone [OXYCODONE] Allergy (Unknown, Verified 05/15/24 09:32) HIVES Medication List - Last Reconciled 05/15/24 by Marika Sanchez acetaminophen 500 mg PO Q6H PRN allopurinol 100 mg PO QAM alum-mag hydroxide-simeth 200-200-20 mg/5 mL (Maalox Advanced) 10 mL PO QID PRN amlodipine 10 mg PO QAM aspirin 81 mg PO QAM atorvastatin 80 mg PO DAILY bisacodyl (Dulcolax (bisacodyl)) 20 mg (4 x 5 mg) PO ONCE 1 day bumetanide 2 mg PO BID dulaglutide (Trulicity) mg subcut QWEEK empagliflozin (Jardiance) 25 mg PO DAILY enalapril maleate 20 mg PO QAM ezetimibe 10 mg PO DAILY famotidine 40 mg PO BEDTIME gabapentin 300 mg PO TID hydralazine 100 mg PO insulin glargine (Lantus Solostar U-100 Insulin) 20 units subcut DAILY insulin lispro 8 units subcut TID metoprolol succinate ER 50 mg PO QAM sennosides (Natural Senna Laxative) 17.2 mg (2 x 8.6 mg) PO BEDTIME spironolactone 25 mg PO DAILY HPI Comments Details: Tejas is a very pleasant 64-year-old male who presented to the office today for evaluation management of his chronic lower back pain. He has been suffering with this pain for many years, though it has progressively gotten worse over the last 1 year. Denies inciting injury, fall or trauma Endorses left lower back pain without radiation Pain is worse with moving, bending, twisting Improves with heat and Tylenol. He has been advised not to take nonsteroidal anti-inflammatory medications as he is insulin dependent diabetic and at risk for kidney injury He takes gabapentin for peripheral neuropathy but does not notice this helps with his lower back pain He previously tried physical therapy but it did not help his pain He has not tried chiropractor, acupuncture or massage Previously attempted injections for his upper back but has not had any injections for his lower back Denies red flag symptoms including new loss of bowel, bladder or saddle anesthesia. In terms of muscle damage condition is described as pounding, throbbing, aching Pain is negatively impacting patient's enjoyment of life, sleep, ability to perform activities of daily living, work and recreational activities Denies current use of anticoagulants Denies implantable devices, pacemaker defibrillator Denies current use of nicotine, tobacco, alcohol or substances Patient is insulin-dependent diabetic, states most recent A1c was around 9 PFSH Medical History (Updated 05/15/24 @ 16:09 by Cassidy Carpenter, SVP OPERATIONS, FACILITY MANAGER) Winter esophagitis Tubular adenoma Hypercholesteremia HTN (hypertension) Diabetes mellitus CKD (chronic kidney disease) Surgical History History of esophagogastroduodenoscopy (EGD) H/O colonoscopy Family History Mother Thyroid cancer Brother Cancer of spine Brother Prostate cancer Father Cancer Social History Alcohol intake: former Comment: was social drinker Patient Tobacco Use Status: Former Tobacco user Review of Systems Const All systems reviewed & are unremarkable except as noted in HPI and below Physical Exam Vital Signs: Last Vital Signs Pulse 79 05/15/24 09:30 BP 112/56 L 05/15/24 09:30 Pulse Ox 98 05/15/24 09:30 Oxygen Delivery Method Room Air 05/15/24 09:30 BMI result Body Mass Index 37.4 General: awake, alert, oriented. Answers questions appropriately. Fully engaged in examination. Skin: warm, dry, intact HEENT: Normocephalic. Hearing intact. Cardiac: External chest normal in appearance. Respiratory: No cough, audible wheezing or stridor. Abdomen: without gross distension. MS: No obvious swelling or deformities. Able to stand on bilateral tiptoes and bilateral heels.? Able to transition from sit to stand unassisted. Ambulates with bilaterally normal heel strike and toe off Facet loading positive SLR negative bilaterally Nontender over bilateral PSIS Limited lumbar range of motion, pain with flexion at 60 degrees, extension at 15 degrees Bilateral lower extremity strength 5/5 Tender over midline lumbar vertebrae and left lumbar paraspinal muscles Neurological: Oriented to person, place, time and situation. Thought process intact. No gait abnormalities appreciated. Psychiatric: Appropriate mood and affect. Good judgment and insight. Results Reviewed Results Reviewed: 09/11/23 EXAMINATION: XR LUMBOSACRAL SPINE FINDINGS: Lumbar lordotic straightening. Vertebral body heights and disc spaces are maintained. Pedicles and SI joints within normal limits. No significant hip joint narrowings. Vascular calcifications. IMPRESSION: Lumbar lordotic straightening. Assessment & Plan Assessment & Plan (1) Lumbar spondylosis: Code(s): M47.816 - Spondylosis without myelopathy or radiculopathy, lumbar region Category: Medical Plan Tejas is a very pleasant 64-year-old male who presented to the office today for evaluation and management of his chronic lower back pain. History, physical exam and provocative testing consistent with left lumbar spondylosis Patient has exhausted conservative therapy including PT, prescription medications including gabapentin and Tylenol. He is unable to take nonsteroidal anti-inflammatory medications due to his diabetes New prescriptions for: methocarbamol 500 mg p.o. 3 times daily as needed. Patient advised on cautions for use. No driving while taking this medication. Diclofenac sodium 1% topical. Apply to most painful area twice daily as needed Will schedule patient for fluoroscopy guided diagnostic left L3-L4 DR L5 medial branch blocks with local anesthetic if patient reports good results will plan for Sprint versus RFA. He is not a candidate for steroid injections due to his current A1c. All questions and concerns were answered, patient agrees with the plan. Follow up after injections, sooner if needed Medications: New methocarbamol No driving while taking this medication. Do no take with alcohol or other MICROELECTRONICS ENGINEER Depressants 500 mg PO TID PRN 90 tabs 1RF muscle spasm diclofenac sodium 1% apply to left lower back twice daily as needed 2 grams topical BID 100 grams 0RF Coding Level of Care Code New Pt Level 4 (83019) Complex EM visit Add On G2211 Diagnoses Lumbar spondylosis M47.816
== END 2024-05-15 10:14 | disposition home or self-care (01) ==
PROVIDERS: PCP Internal Medicine Geriatric Medicine; Visit Provider Registered Nurse Emergency
DX: M47.816 Spondylosis without myelopathy or radiculopathy, lumbar region (principal)
CPT/HCPCS: 99204; 99214; G2211

== ENCOUNTER → 2024-05-15 09:27 | Outpatient (BNVA) | payer MEDICARE, MEDICAID, SELFPAY | PROVIDERS: PCP Internal Medicine Geriatric Medicine; Visit Provider Registered Nurse Emergency | DX: M47.816 Spondylosis without myelopathy or radiculopathy, lumbar region (principal) | CPT/HCPCS: 99202 ==

== ENCOUNTER 2024-05-20 09:42 | Outpatient (AMB) | payer MEDICARE, MEDICAID, SELFPAY ==
--- NOTE | 2024-05-20 09:44 | A.OFFVIS_ITS ---
Vital Signs 05/20/24 09:46 Height 5 ft 9 in Weight 250 lb 14.177 oz BMI 37.0 BP 120/64 Blood Pressure Location Lt brachial Position Sitting Pulse 72 Pulse Source Pulse Oximeter Pulse Oximetry (%) 97 Oxygen Delivery Method Room Air Intake Visit Reasons: 4 month follow up Intake Note: Tejas presents in office today for a scheduled 4 mos FUV. CC; Pt was rx'd famotidine at their last visit. Pt reports that they have remained stable since their last visit, however; they have not seen any improvement in their sx. Pt still reporting the same chronic sx as their previous visit. Garbage Truck Driver Required: No Allergies oxycodone [OXYCODONE] Allergy (Unknown, Verified 05/20/24 09:44) HIVES HPI HPI 4 month follow up: Details: LAST VISIT: Winter esophagitis Tubular adenoma Status post colonoscopy Constipation Plan Patient will start taking Senokot. Patient's spouse states that patient took that in the past. Increase fluid intake and activity to promote better bowel motility. Patient can continue taking Nexium daily. Avoid dietary triggers and late night snacking. Staying upright for minimum 3 hours after meals discussed with patient will increase Pepcid to 40 mg daily and we will re-evaluate next visit. Patient will return in March so we can discuss going for colonoscopy. Message sent to surgical schedulers to schedule procedure for May. Both patient and his spouse are agreeable to plan of care and verbalize understanding of instructions. They were given the opportunity to ask questions and all questions answered. ? Thank you for allowing me to participate in his care Medications New sennosides (Natural Senna Laxative) 17.2 mg (2 x 8.6 mg) PO BEDTIME 60 tabs 3RF constipation K59.00 famotidine 40 mg PO BEDTIME 30 tabs 3RF K21.9 Discontinued famotidine Discontinued Reason: Doctor's Order 20 mg PO DAILY 14 tabs 0RF TODAY'S VISIT: Patient is here today for follow-up. Patient reports that he continues to have epigastric pain depending on what he eats. Usually happens when he eats meat like ground beef or steak. Patient reports that his Trulicity was increased, however patient reports that he was not feeling well. Reported abdominal pain, bloating and discomfort. The dose was decreased. Patient denies any nausea or vomiting. He is unsure if he is taking the Nexium or not. Patient states that he is taking all of the medications that are prescribed to him and they are all given to him by pharmacy prefilled already. Patient will bring medications to his next appointment. I do not see Nexium on the list. Patient is taking famotidine at bedtime. Patient reports that he is moving his bowels well. Takes Senokot in the evening. Patient is scheduled for colonoscopy and has a follow-up appointment after colonoscopy in the office. Patient denies any nausea or vomiting. Denies any dyspepsia, dysphagia or odynophagia. Patient denies any melena, hematochezia, unintentional weight loss or ribbon like stools. [facility] Medical History Winter esophagitis Tubular adenoma Hypercholesteremia HTN (hypertension) Diabetes mellitus CKD (chronic kidney disease) Surgical History History of esophagogastroduodenoscopy (EGD) H/O colonoscopy Family History Mother Thyroid cancer Brother Cancer of spine Brother Prostate cancer Father Cancer Social History Alcohol intake: former Comment: was social drinker Patient Tobacco Use Status: Former Tobacco user Review of Systems Const Denies weight gain and Denies weight loss ENT Reports no additional complaints, Denies dysphagia and Denies odynophagia Card Reports no additional complaints Resp Reports no additional complaints GI Reports abdominal pain (epigastric), Denies belching, Denies melena, Reports bloating, Denies change in bowel habits, Reports constipation, Denies dysphagia, Denies excessive flatus, Denies dyspepsia, Denies heartburn, Denies diarrhea, Denies loose stools, Denies nausea, Denies odynophagia and Denies vomiting Reports no additional complaints Musc Reports no additional complaints Neuro Reports no additional complaints Psych Reports no additional complaints Endo Reports no additional complaints Physical Exam Vital Signs: Last Vital Signs Pulse 72 05/20/24 09:46 BP 120/64 05/20/24 09:46 Pulse Ox 97 05/20/24 09:46 Oxygen Delivery Method Room Air 05/20/24 09:46 BMI result Body Mass Index 37.0 Const General: healthy appearing and no acute distress Nutritional Appearance: obese Orientation/consciousness: patient oriented x3 Resp Effort & Inspection: normal respiratory effort, able to speak in complete sentences, no tracheal deviation and symmetric chest movement Auscultation: clear to auscultation bilaterally Cardio Rate: regular rate GI Inspection: Yes normal to inspection, No distended and Yes obesity Palpation (GI): Soft to palpation, not firm, nontender and No hepatosplenomegaly present Auscultation: normal bowel sounds General: Yes no CVA tenderness Back/Spine/Pelvis Back: no CVA tenderness Skin General skin exam: elasticity normal, turgor normal and dry skin Neuro General: patient oriented x3 Psych Appearance: grossly normal Mental Status: mental status grossly normal Assessment & Plan Assessment & Plan (1) Winter esophagitis: Code(s): B37.81 - Candidal esophagitis Category: Medical (2) Tubular adenoma: Code(s): D36.9 - Benign neoplasm, unspecified site Category: Medical (3) Constipation: Code(s): K59.00 - Constipation, unspecified Qualifiers: Constipation type: slow transit constipation Qualified Code(s): K59.01 - Slow transit constipation (4) GERD (gastroesophageal reflux disease): Code(s): K21.9 - Gastro-esophageal reflux disease without esophagitis Qualifiers: Esophagitis presence: with esophagitis Esophagitis bleeding: without hemorrhage Qualified Code(s): K21.00 - Gastro-esophageal reflux disease with esophagitis, without bleeding (5) Postprandial epigastric pain: Code(s): R10.13 - Epigastric pain Plan Patient will start taking as omeprazole in the morning half an hour before breakfast. Avoid dietary triggers and late night snacking. Staying upright for minimum 3 hours after meals discussed with patient. Patient will start taking Dulcolax tablets 1 week before the procedure to every night except for day before procedure 4 tablets at and split MiraLax prep. Stressed the importance of good bowel prep as well as clear liquid diet day before procedure. Patient will be taking Senokot daily. Currently moves his bowels better. Denies melena, hematochezia. Patient denies dyspepsia, dysphagia or odynophagia. Medications: New esomeprazole magnesium (Nexium) 40 mg PO DAILY 30 caps 5RF K21.9 - Gastro- esophageal reflux disease without esophagitis bisacodyl (Dulcolax (bisacodyl)) Start taking 2 tablet every night 7 days before the procedure and 1 day before procedure take 4 tablets at noon time followed by MiraLax prep 10 mg (2 x 5 mg) PO BEDTIME 16 tabs 0RF Z12.11 - Encounter for screening for malignant neoplasm of colon polyethylene glycol 3350 (Miralax) As directed by gastroenterology department at [facility] 238 grams PO ONCE 238 grams 0RF Z12.11 - Encounter for screening for malignant neoplasm of colon Discontinued bisacodyl (Dulcolax (bisacodyl)) take 4 tabs at noon the day before your colonoscopy Discontinued Reason: Patient Completed Course 20 mg (4 x 5 mg) PO ONCE 1 day 4 tabs 0RF Z12.11 - Encounter for screening for malignant neoplasm of colon Coding Level of Care Code Est Pt Level 4 (81742) Diagnoses Winter esophagitis B37.81 Tubular adenoma D36.9 Slow transit constipation K59.01 Constipation type: slow transit constipation Gastroesophageal reflux disease with esophagitis without hemorrhage K21.00 Esophagitis presence: with esophagitis Esophagitis bleeding: without hemorrhage Postprandial epigastric pain R10.13 Time Spent (min) 35 Comment 20 minutes spent with patient and additional 15 minutes spent reviewing his records
[2024-05-20 09:46] VITALS: BP 120/64; PULSE 72; O2SAT 97; BMI 37.0
== END 2024-05-20 10:16 | disposition home or self-care (01) ==
PROVIDERS: PCP Internal Medicine Geriatric Medicine; Visit Provider Nurse Practitioner Family
DX: B37.81 Candidal esophagitis (principal); D36.9 Benign neoplasm, unspecified site; K59.01 Slow transit constipation; K21.00 Gastro-esophageal reflux disease with esophagitis, without bleeding; R10.13 Epigastric pain
CPT/HCPCS: 99214

== ENCOUNTER → 2024-05-20 09:42 | Outpatient (BNVA) | payer MEDICARE, MEDICAID, SELFPAY | PROVIDERS: PCP Internal Medicine Geriatric Medicine; Visit Provider Nurse Practitioner Family | DX: K59.01 Slow transit constipation (principal); K21.00 Gastro-esophageal reflux disease with esophagitis, without bleeding; B37.81 Candidal esophagitis; R10.13 Epigastric pain; D36.9 Benign neoplasm, unspecified site | CPT/HCPCS: 99212 ==

== ENCOUNTER 2024-07-09 06:23 | Outpatient (REF) | payer MEDICARE, MEDICAID, SELFPAY | END 2024-07-09 06:24 | disposition home or self-care (01) | LOC: CF 06:23 | PROVIDERS: Visit Provider Anesthesiology | DX: Z13.89 Encounter for screening for other disorder (principal) ==

== ENCOUNTER 2024-08-01 05:52 | Day surgery (SDC) | payer MEDICARE, MEDICAID, SELFPAY ==
[2024-07-30 14:24] VITALS: BMI 37.1
--- NOTE | 2024-07-31 10:09 | HO.ANESPROP2 ---
Documented by User: Carol Kincaid NP 07/31/24 10:17 HPI - Anesthesia Eval Consult details Narrative: 64yo M for Colonoscopy Anesthesia Pre-Procedure Meds Is the patient on any of the following meds?: GLP1/DPP4 and SGLT2 Inhib PMFSH Active Problems Active Problems: All Active Problems Lumbar spondylosis (Acute) Tubular adenoma (Acute) Past Medical History Medical History (Updated 07/30/24 @ 14:17 by Celine Narayan RN) Tubular adenoma Winter esophagitis Hypercholesteremia HTN (hypertension) Diabetes mellitus CKD (chronic kidney disease) Family History Family History Mother Thyroid cancer Brother Cancer of spine Brother Prostate cancer Father Cancer Family history of problems with anesthesia: No Surgical History Surgical History History of esophagogastroduodenoscopy (EGD) H/O colonoscopy History of Problems with Anesthesia: No Social History Social History Alcohol intake: former Comment: was social drinker Patient Tobacco Use Status: Former Tobacco user Have you been hit, kicked, punched, or otherwise hurt by someone within the past year? If so, by whom?: No Are you DNR?: No Advance Directives: No Advance Directives Information Provided: Yes Nutrition Risks: No Nutritional Risk Meds Allergies Allergy/AdvReac Type Severity Reaction Status Date / Time oxycodone [OXYCODONE] Allergy Unknown HIVES Verified 05/20/24 09:44 Home Medications ?Medication ?Instructions ?Recorded ?Confirmed ?Last Taken ?Type amlodipine 10 mg tablet 10 mg PO QAM 07/24/23 07/30/24 07/31/24 History aspirin 81 mg tablet,delayed 81 mg PO QAM 07/24/23 07/30/24 07/31/24 History release atorvastatin 80 mg tablet 80 mg PO DAILY 07/24/23 07/30/24 07/31/24 History empagliflozin 25 mg tablet 25 mg PO DAILY 07/24/23 07/30/24 07/28/24 History (Jardiance) enalapril maleate 20 mg tablet 20 mg PO QAM 07/24/23 07/30/2407/31/24 History ezetimibe 10 mg tablet 10 mg PO DAILY 07/24/23 07/30/24 07/31/24 History gabapentin 300 mg capsule 300 mg PO TID 07/24/23 07/30/24 07/31/24 History hydralazine 100 mg tablet 100 mg PO BID 07/24/23 07/30/24 07/31/24 History insulin lispro 100 unit/mL 10 unit subcut TID 07/24/23 07/30/24 07/30/24 History subcutaneous pen spironolactone 25 mg tablet 25 mg PO DAILY 07/24/23 07/30/24 07/31/24 History insulin glargine 100 unit/mL (3 24 unit subcut DAILY 09/11/23 07/30/24 07/30/24 History mL) subcutaneous pen (Lantus Solostar U-100 Insulin) bumetanide 2 mg tablet 2 mg PO BID 05/15/24 07/30/24 07/31/24 History cetirizine 10 mg tablet 10 mg PO QAM 05/20/24 07/30/24 07/31/24 History famotidine 20 mg tablet 20 mg PO DAILY 05/20/24 07/30/24 07/31/24 History metoprolol tartrate 100 mg tablet 100 mg PO BID 05/20/24 07/30/24 07/31/24 History verapamil 120 mg tablet,extended 120 mg PO DAILY 05/20/24 07/30/24 07/31/24 History release dulaglutide 3 mg/0.5 mL mg subcut QWEEK 07/31/24 07/31/24 07/12/24 History subcutaneous pen injector (Trulicity) Exam Height,Weight and Vital Signs: Height 5 ft 9 in Weight 113.852 kg Pertinent Lab Results Pertinent Lab Results: Laboratory Tests 07/24/23 03/22/24 14:37 15:40 WBC 8.1 Hgb 11.8 L Hct 39.2 L Plt Count 234 Sodium 138 Potassium 4.2 Chloride 101 Carbon Dioxide 28 BUN 26 H Creatinine 2.24 H Assessment and Plan Assessment Anesthesia Assessment: Chart Reviewed Final Anesthetic Review Family History of Problems with Anesthesia: No History of Problems with Anesthesia: No Documented by User: Parmjit Whitman MD 08/01/24 07:37 [facility] Past Medical History Medical History (Updated 07/30/24 @ 14:17 by Celine Narayan RN) Tubular adenoma Winter esophagitis Hypercholesteremia HTN (hypertension) Diabetes mellitus CKD (chronic kidney disease) Family History Family History Mother Thyroid cancer Brother Cancer of spine Brother Prostate cancer Father Cancer Family history of problems with anesthesia: No Surgical History Surgical History History of esophagogastroduodenoscopy (EGD) H/O colonoscopy Social History Social History Alcohol intake: former Comment: was social drinker Patient Tobacco Use Status: Former Tobacco user Have you been hit, kicked, punched, or otherwise hurt by someone within the past year? If so, by whom?: No Are you DNR?: No Advance Directives: No Advance Directives Information Provided: Yes Nutrition Risks: No Nutritional Risk Meds Allergies Allergy/AdvReac Type Severity Reaction Status Date / Time oxycodone [OXYCODONE] Allergy Unknown HIVES Verified 05/20/24 09:44 Home Medications ?Medication ?Instructions ?Recorded ?Confirmed ?Last Taken ?Type amlodipine 10 mg tablet 10 mg PO QAM 07/24/23 07/30/24 07/31/24 History aspirin 81 mg tablet,delayed 81 mg PO QAM 07/24/23 07/30/24 07/31/24 History release atorvastatin 80 mg tablet 80 mg PO DAILY 07/24/23 07/30/24 07/31/24 History empagliflozin 25 mg tablet 25 mg PO DAILY 07/24/23 07/30/24 07/28/24 History (Jardiance) enalapril maleate 20 mg tablet 20 mg PO QAM 07/24/23 07/30/24 07/31/24 History ezetimibe 10 mg tablet 10 mg PO DAILY 07/24/23 07/30/24 07/31/24 History gabapentin 300 mg capsule 300 mg PO TID 07/24/23 07/30/24 07/31/24 History hydralazine 100 mg tablet 100 mg PO BID 07/24/23 07/30/24 07/31/24 History insulin lispro 100 unit/mL 10 unit subcut TID 07/24/23 07/30/24 07/30/24 History subcutaneous pen spironolactone 25 mg tablet 25 mg PO DAILY 07/24/23 07/30/24 07/31/24 History insulin glargine 100 unit/mL (3 24 unit subcut DAILY 09/11/23 07/30/24 07/30/24 History mL) subcutaneous pen (Lantus Solostar U-100 Insulin) bumetanide 2 mg tablet 2 mg PO BID 05/15/24 07/30/24 07/31/24 History cetirizine 10 mg tablet 10 mg PO QAM 05/20/24 07/30/24 07/31/24 History famotidine 20 mg tablet 20 mg PO DAILY 05/20/24 07/30/24 07/31/24 History metoprolol tartrate 100 mg tablet 100 mg PO BID 05/20/24 07/30/24 07/31/24 History verapamil 120 mg tablet,extended 120 mg PO DAILY 05/20/24 07/30/24 07/31/24 History release dulaglutide 3 mg/0.5 mL mg subcut QWEEK 07/31/24 07/31/24 07/12/24 History subcutaneous pen injector (Trulicity) Exam Airway Mallampati Class: II TM Dist: <=3cm Neck ROM: Full Loose/Missing/Broken Teeth: Yes and Upper Heart: ok Lungs: ok Assessment and Plan Assessment Anesthesia Assessment: Anesthesia Plan Discussed Final Anesthetic Review Family History of Problems with Anesthesia: No NPO: Yes ASA Class: III Final Preanesthetic Review: No Changes in Pt Med Stat, Meds/Allgs Chart Reviewed, Consent Obtained/Reviewed and Anes Risks/Benef Reviewed Patient Risk: Intermediate Procedure Risk: Low Anesthetic Plan Anesthetic Plan: MAC:, Agree w/ Assess. and Plan and TIVA Disposition: Standard PACU
[2024-08-01 06:14] VITALS: BP 168/92; PULSE 82; RESP 18; TEMP 36.9; O2SAT 96; BMI 37.2
[2024-08-01 06:30] LABS: Glucose, Whole Blood 173 mg/dL (60-115)
[2024-08-01] MEDS: Lactated Ringers 1,000 ML 100 ML IVCONT (06:41)
--- NOTE | 2024-08-01 07:51 | P.HPSUR_ITS ---
Pre-Procedural Eval Section A - 24 Hr Update-Section A only Date of Service: 08/01/24 Section B - Complete if H&P > 30 days Chief Complaint: Benign neoplasm,Slow transit constipation Relevant Family History (Specify if Yes): No Relevant Social History: None Present Medications: see Short Stay Collaborative assessment Medical History: Significant History (Tubular adenoma Winter esophagitis Hypercholesteremia HTN (hypertension) Diabetes mellitus CKD (chronic kidney disease)) History of Previous Operations: Relevant previous surgery/procedure and date(s) (History of esophagogastroduodenoscopy (EGD) H/O colonoscopy) Allergies: Allergies Allergy/AdvReac Type Severity Reaction Status Date / Time oxycodone [OXYCODONE] Allergy Unknown HIVES Verified 05/20/24 09:44 Review of Systems Sugical H&P ROS: Negative: Constitution, Cardiovascular, Respiratory, Beltran rological, Psychiatric, Hem-Onc, Allergic/Immunologic, Gastrointestinal, Genitourinary, Musculoskeletal, Integumentary, Endocrine and Eyes/Ears/Nose/Throat Exam Surgical H&P Exam: Normal: HEENT, Normal: Heart, Normal: Lungs, Normal: Extremities, Normal: Abdomen, Normal: Skin and Normal: Neurological Plan Diagnosis/Plan: Unchanged I have reviewed the history and physical and performed a pertinent physical examination on my patient. No changes have occurred unless specified. Time Spent With Patient Time: Total time managing care of this patient today ____ minutes.
--- NOTE | 2024-08-01 08:27 | HO.OPN-COLON ---
Colonoscopy Operative Note Operative Note Date of Service: 08/01/24 Narrative: Operative Information Procedure Description: Colonoscopy Indication: screening Anesthesia: MAC COLONOSCOPY Instrument: Olympus variable stiffness pediatric scope 190L Colonoscopy Monitoring: Vital signs and clinical assessment, continuous EKG monitoring, Pulse oximetry, Carbon Dioxide monitoring and blood pressure monitoring were done throughout the procedure. Colon withdrawal time was 12 minutes. Procedure: The patient was placed in the left lateral decubitis position and pre-procedure medications were administered. After a digital rectal examination of the ano-rectum, the video colonoscope was inserted into the rectum and advanced through the colon to the cecum/TI. The colonoscope was slowly withdrawn in a retrograde panoramic fashion and the colon mucosa was carefully examined including a retroflexed view of the rectum. Findings and interventions are described below. Procedure Difficulty: moderate Findings: Terminal Ileum-not intubated Cecum: x 2 sessile polyps removed with cold forceps Ascending Colon: normal Transverse Colon -normal Descending Colon:normal Sigmoid Colon: mdoerate diverticulosis, x 2 sessile polyps 7-9 mm removed with cold snare Rectum: Retroflexion with small internal hemorrhoids seen, grade I Anorectum - normal Intervention: cold snare, cold forceps Colon preparation: Stratford Bowel Preparation Scale Right colon; 1-2 Transverse colon: 2 Left colon; 2 (0 = Unprepared colon segment with mucosa not seen due to solid stool that cannot be cleared. 1 = Portion of mucosa of the colon segment seen, but other areas of the colon segment not well seen due to staining, residual stool and/or opaque liquid. 2 = Minor amount of residual staining, small fragments of stool and/or opaque liquid, but mucosa of colon segment seen well. 3 = Entire mucosa of colon segment seen well with no residual staining, small fragments of stool or opaque liquid) Impression and Post Procedure Diagnosis: diverticulosis colon polyps x 4 internal hemorrhoids Plan: High fiber diet leaflet Avoid straining at stool, epsom salts and sitz bath, anusol supps or cream Repeat Colonoscopy in 3-4 years due to fair prep on right side or earlier if clinically indicated Above findings were reviewed with the patient and relevant handouts were provided if indicated.
[2024-08-01 08:36] VITALS: BP 159/86; PULSE 79; RESP 18; TEMP 36.4; O2SAT 96
[2024-08-01 08:58] VITALS: BP 181/91; PULSE 80; RESP 17; TEMP 36.1; O2SAT 98
== END 2024-08-01 09:13 | disposition home or self-care (01) ==
PROVIDERS: PCP Internal Medicine Geriatric Medicine; Visit Provider Internal Medicine Gastroenterology
PROC: 0DJD8ZZ Inspection of Lower Intestinal Tract, Via Natural or Artificial Opening Endoscopic (ICD-10-PCS; CPT 45378; principal; 2024-08-01 07:30)
DX: Z12.11 Encounter for screening for malignant neoplasm of colon (principal); Z86.0101 Personal history of adenomatous and serrated colon polyps; K59.01 Slow transit constipation; K51.40 Inflammatory polyps of colon without complications; K63.5 Polyp of colon; K57.30 Diverticulosis of large intestine without perforation or abscess without bleeding; K64.0 First degree hemorrhoids; R10.13 Epigastric pain; K21.00 Gastro-esophageal reflux disease with esophagitis, without bleeding; I12.9 Hypertensive chronic kidney disease with stage 1 through stage 4 chronic kidney disease, or unspecified chronic kidney disease; E11.22 Type 2 diabetes mellitus with diabetic chronic kidney disease; N18.9 Chronic kidney disease, unspecified; B37.81 Candidal esophagitis; Z79.85 Long-term (current) use of injectable non-insulin antidiabetic drugs; Z79.84 Long term (current) use of oral hypoglycemic drugs; Z79.4 Long term (current) use of insulin; Z79.82 Long term (current) use of aspirin; Z79.899 Other long term (current) drug therapy; Z88.5 Allergy status to narcotic agent; Z87.891 Personal history of nicotine dependence
CPT/HCPCS: 45385; 45380; 82947; 88305; J1596; J2003; J2704

== ENCOUNTER → 2024-08-01 05:52 | Outpatient (BNV) | payer MEDICARE, MEDICAID, SELFPAY | PROVIDERS: PCP Internal Medicine Geriatric Medicine; Visit Provider Internal Medicine Gastroenterology | DX: Z12.11 Encounter for screening for malignant neoplasm of colon (principal); K63.5 Polyp of colon; K57.30 Diverticulosis of large intestine without perforation or abscess without bleeding; K64.0 First degree hemorrhoids | CPT/HCPCS: 45380; 45385 ==

== ENCOUNTER 2024-11-19 06:34 | Outpatient (REF) | payer MEDICARE, MEDICAID, SELFPAY ==
--- NOTE | ~2024-11-19 | FL_ITS ---
EXAMINATION: FL GUIDANCE ONLY HISTORY: M47.816 - Spondylosis without myelopathy or radiculopathy, lumbar region COMPARISON: None available. TECHNIQUE: Fluoroscopy time: 0.4 minutes. Cumulative Dose: 7.67 mGy. DAP: 0.133 mGym2 Images: 3. FINDINGS: Images demonstrate needles and contrast material in the regions of the left L3-4, L4-5, and L5-S1 facet joints. FL/FL guidance in treatment room IMPRESSION: Fluoroscopy during procedure. Please see procedure report for additional information. Electronically signed by: Irvin Lares MD 11/20/2024 07:01 AM EDT
== END 2024-11-19 06:35 | disposition home or self-care (01) ==
LOC: CF 06:34
PROVIDERS: Visit Provider Anesthesiology
DX: M47.816 Spondylosis without myelopathy or radiculopathy, lumbar region (principal)
CPT/HCPCS: 64493; 64494; J2003; J2795; Q9967

== ENCOUNTER 2024-11-19 14:22 | Outpatient (AMB) | payer MEDICARE, MEDICAID, SELFPAY ==
[2024-11-19 14:28] VITALS: BP 163/76; PULSE 88; O2SAT 100
--- NOTE | 2024-11-19 14:28 | A.OFFVIS_ITS ---
Vital Signs 11/19/24 14:28 11/19/24 15:05 BP 163/76 H 157/72 H Blood Pressure Location Lt brachial Lt brachial Position Sitting Sitting Pulse 88 84 Pulse Source Pulse Oximeter Pulse Oximeter Pulse Oximetry (%) 100 98 Oxygen Delivery Method Room Air Room Air Comment Pre-Procedure Post-Procedure Intake Visit Reasons: LEFT DIAGNOSTIC L3, L4, DRL5 MBB Allergies oxycodone [OXYCODONE] Allergy (Unknown, Verified 05/20/24 09:44) HIVES [facility] Medical History (Updated 07/30/24 @ 14:17 by Celine Narayan RN) Tubular adenoma Winter esophagitis Hypercholesteremia HTN (hypertension) Diabetes mellitus CKD (chronic kidney disease) Surgical History History of esophagogastroduodenoscopy (EGD) H/O colonoscopy Family History Mother Thyroid cancer Brother Cancer of spine Brother Prostate cancer Father Cancer Social History Alcohol intake: former Comment: was social drinker Patient Tobacco Use Status: Former Tobacco user Physical Exam Vital Signs: Last Vital Signs Pulse 84 11/19/24 15:05 BP 157/72 H 11/19/24 15:05 Pulse Ox 98 11/19/24 15:05 Oxygen Delivery Method Room Air 11/19/24 15:05 Assessment & Plan Assessment & Plan (1) Lumbar spondylosis: Code(s): M47.816 - Spondylosis without myelopathy or radiculopathy, lumbar region Category: Medical Plan Diagnostic left medial branch block L3, L4, dorsal ramus L5. Informed consent was thoroughly explained to the patient before the procedure.? The patient came to the operating room.?He was positioned prone on operating table with a pillow under her abdomen.? Time-out was performed delineating correct site and side of the procedure, nature of the injection, name and date of of the patient. The lower back and upper buttocks of the patient was prepped with ChloraPrep and draped with sterile utility towels.? C-arm was brought over the operating field and the point of interest were delineated as confluence of the superior articular process of L4 vertebra and L5 vertebra on the left with corresponding transverse process on the left, as well as confluence of the superior articular process of S1 on the left with sacral ala on the left. The point of interest projection to the skin was injected with small amount of mixture of lidocaine 2% and ropivacaine 0.5%. After that 22 gauge 3-1/2 inch needle was driven to point of interest in tunnel vision fashion. When needle gently contacted the bone injection of the contrast was performed delineating no intravascular and no intrathecal spread of the contrast. After that injection of the small amount of ropivacaine 0.5% less than 1 cc into each target site was performed. Upon completion of the injections the needle was removed sterile Band-Aids were applied. The patient tolerated procedure well. He was given a pain diary to complete after the procedure. Orders: Orders FL guidance in treatment room 11/19/24 M47.816 - Spondylosis without myelopathy or radiculopathy, lumbar region Coding Level of Care Code Procedure Only Diagnoses Lumbar spondylosis M47.816
[2024-11-19 15:05] VITALS: BP 157/72; PULSE 84; O2SAT 98
== END 2024-11-19 15:07 | disposition home or self-care (01) ==
LOC: HO.PMCPRC 14:22
PROVIDERS: PCP Internal Medicine Geriatric Medicine; Visit Provider Anesthesiology
DX: M47.816 Spondylosis without myelopathy or radiculopathy, lumbar region (principal)
CPT/HCPCS: 64493; 64494

== ENCOUNTER 2024-11-25 13:12 | Outpatient (AMB) | payer MEDICARE, MEDICAID, SELFPAY ==
--- NOTE | 2024-11-25 13:14 | A.OFFVIS_ITS ---
Vital Signs 11/25/24 13:16 Height 5 ft 9 in Weight 245 lb BMI 36.2 BP 124/75 Blood Pressure Location Lt brachial Position Sitting Respiration 16 Pulse 90 Pulse Source Pulse Oximeter Pulse Oximetry (%) 98 Oxygen Delivery Method Room Air Intake Visit Reasons: LEFT DIAGNOSTIC L3, L4, DRL5 MBB Supervisor [employer] Required: No Allergies oxycodone [OXYCODONE] Allergy (Unknown, Verified 11/25/24 13:17) HIVES Medication List - Last Reconciled 11/25/24 by Katrin Martínez LPN amlodipine 10 mg PO QAM aspirin 81 mg PO QAM atorvastatin 80 mg PO DAILY bumetanide 2 mg PO BID cetirizine 10 mg PO QAM dulaglutide (Trulicity) mg subcut QWEEK empagliflozin (Jardiance) 25 mg PO DAILY enalapril maleate 20 mg PO QAM esomeprazole magnesium (Nexium) 40 mg PO DAILY ezetimibe 10 mg PO DAILY famotidine 20 mg PO DAILY gabapentin 300 mg PO TID hydralazine 100 mg PO BID insulin glargine (Lantus Solostar U-100 Insulin) 24 units subcut DAILY insulin lispro 10 units subcut TID metoprolol tartrate 100 mg PO BID spironolactone 25 mg PO DAILY verapamil ER 120 mg PO DAILY HPI Comments Details: Tejas is Back in my office after diagnostic left-sided medial branch block L3, L4, dorsal ramus L5. He denies any help from this injection. He reports the pain aggravation with flexing forward but not backwards. Today attention was attracted that he has a tenderness on palpation in projection of the left iliac crest. I suspected that patient has cluneal nerve entrapment. I will schedule her for diagnostic cluneal nerve block on the left. Prior: He has been suffering with this pain for many years, though it has progressively gotten worse over the last 1 year. Denies inciting injury, fall or trauma Endorses left lower back pain without radiation Pain is worse with moving, bending, twisting Improves with heat and Tylenol. He has been advised not to take nonsteroidal anti-inflammatory medications as he is insulin dependent diabetic and at risk for kidney injury He takes gabapentin for peripheral neuropathy but does not notice this helps with his lower back pain He previously tried physical therapy but it did not help his pain He has not tried chiropractor, acupuncture or massage Previously attempted injections for his upper back but has not had any injections for his lower back Denies red flag symptoms including new loss of bowel, bladder or saddle anesthesia. In terms of muscle damage condition is described as pounding, throbbing, aching Pain is negatively impacting patient's enjoyment of life, sleep, ability to perform activities of daily living, work and recreational activities Denies current use of anticoagulants Denies implantable devices, pacemaker defibrillator Denies current use of nicotine, tobacco, alcohol or substances Patient is insulin-dependent diabetic, states most recent A1c was around 9 PFSH Medical History (Updated 11/25/24 @ 13:47 by José Gamboa MD) Tubular adenoma Winter esophagitis Hypercholesteremia HTN (hypertension) Diabetes mellitus CKD (chronic kidney disease) Surgical History History of esophagogastroduodenoscopy (EGD) H/O colonoscopy Family History Mother Thyroid cancer Brother Cancer of spine Brother Prostate cancer Father Cancer Social History Alcohol intake: former Comment: was social drinker Patient Tobacco Use Status: Former Tobacco user Review of Systems Const All systems reviewed & are unremarkable except as noted in HPI and below Physical Exam Vital Signs: Last Vital Signs Pulse 90 11/25/24 13:16 Resp 16 11/25/24 13:16 BP 124/75 11/25/24 13:16 Pulse Ox 98 11/25/24 13:16 Oxygen Delivery Method Room Air 11/25/24 13:16 BMI result Body Mass Index 36.2 General: awake, alert, oriented. Answers questions appropriately. Fully engaged in examination. Skin: warm, dry, intact HEENT: Normocephalic. Hearing intact. Cardiac: External chest normal in appearance. Respiratory: No cough, audible wheezing or stridor. Abdomen: without gross distension. MS: No obvious swelling or deformities. Able to stand on bilateral tiptoes and bilateral heels.? Able to transition from sit to stand unassisted. Ambulates with bilaterally normal heel strike and toe off Facet loading positive SLR negative bilaterally Nontender over bilateral PSIS Limited lumbar range of motion, pain with flexion at 60 degrees, extension at 15 degrees Bilateral lower extremity strength 5/5 Tender over midline lumbar vertebrae and left lumbar paraspinal muscles Neurological: Oriented to person, place, time and situation. Thought process intact. No gait abnormalities appreciated. Psychiatric: Appropriate mood and affect. Good judgment and insight. Assessment & Plan Assessment & Plan (1) Lumbar spondylosis: Code(s): M47.816 - Spondylosis without myelopathy or radiculopathy, lumbar region Category: Medical (2) Mononeuropathy, unspecified: Code(s): G58.9 - Mononeuropathy, unspecified Category: Medical Plan Diagnostic medial branch block as above did not help the pain of the patient. Physical exam discussion also see as above. I will schedule him for diagnostic cluneal nerve block on the left. I will see the patient after the completion of the Diagnostic left cluneal nerve block. Coding Level of Care Code Est Pt Level 3 (27861) Diagnoses Lumbar spondylosis M47.816 Mononeuropathy, unspecified G58.9
[2024-11-25 13:16] VITALS: BP 124/75; PULSE 90; RESP 16; O2SAT 98; BMI 36.2
--- OUTSIDE RECORDS SUMMARY | 2024-11-25 14:55 | XMS_ITS | Encounter Summary ---
Author Organization [facility] Address [address] [place] [address] Care Team Providers Care Boat Wrapper Name Role Phone Name, Tavon PASTOR Primary Care Provider Unavailabl e Barbara Carmona MD Primary Care Provider [phone] Moe Vaughan MD Primary Care Provider Unavaila Perry Iverson MD Primary Care Provider Un available Name, Tavon PASTOR Primary Care Provider Unavailabl e Reason for Visit * Reason Onset Date Comments Jive Developer Feedback 08/26/2015 small bowel seri es Encounter Details Date Type Department Care Team Description 08/26/2015 Telephone Gastroenterology - [address] [address] Dayday Mayer MD Jive Developer Feedback (small bowel series) Social History Tobacco Use Types Packs/Day Years Used Date Smoking Tobacco: Former Cigarettes 0.5 7 Q uit: 08/28/1996 Smokeless Tobacco: Former Alcohol Use Standard Drinks/Week Comments Yes 0 (1 standard drink = 0.6 oz pur e alcohol) 1 glass wine per week @ most Sex Assigned at Date Recorded Not on file documented as of this encounter Miscellaneous Notes * Telephone Encounter - Mabel Dang - 08/26/2015 2:50 PM EST Faxed order over to [facility]. They will contact the patient and schedule an appointment. Notification letter mailed to patient. documented in this encounter Plan of Treatment Not on file documented as of this encounter Visit Diagnoses Not on filedocumented in this encounter Care Teams Boat Wrapper Relationship Specialty Start Date End Date Name, MD Tavon PCP - General 10/20/07 09/22/15 Barbara Carmona MD [address] [place], [place] [id number] PCP - General Internal Medicine 09/23/15 11/01/15 Moe Vaughan MD [address] [place] [address] PCP - General Internal Medicine 11/02/15 11/10/15 Perry Belcher MD [address] [place], [place] [id number] PCP - General Internal Medicine 11/11/15 04/16/17 Name, MD Tavon [address] [place] [address] PCP - General Internal Medicine 04/17/17 documented as of this encounter
--- OUTSIDE RECORDS SUMMARY | 2024-11-25 14:55 | XMS_ITS | Encounter Summary ---
Author Organization [facility] Address [address] [place] [address] Care Team Providers Care Animation Camera Operator Name Role Phone Name, Tavon PASTOR Primary Care Provider Unavailabl e Barbara Carmona MD Primary Care Provider [phone] Moe Vaughan MD Primary Care Provider Unavaila ble Perry Belcher MD Primary Care Provider Un available Name, Tavon PASTOR Primary Care Provider Unavailabl e Encounter Details Date Type Department Care Team Description 03/02/2011 Eye Stonemason Apprentice Report Medical Records [address] [place] [id number] Clyde Lawrence MD Social History Tobacco Use Types Packs/Day Years Used Date Smoking Tobacco: Former Cigarettes Q uit: 08/28/1996 Smokeless Tobacco: Never Alcohol Use Standard Drinks/Week Comments Yes 0 (1 standard drink = 0.6 oz pur e alcohol) rare wine Sex Assigned at Date Recorded Not on file documented as of this encounter Plan of Treatment Not on file documented as of this encounter Visit Diagnoses Not on filedocumented in this encounter Care Teams Animation Camera Operator Relationship Specialty Start Date End Date Name, MD Tavon PCP - General 10/20/07 09/22/15 Barbara Carmona MD [address] [place] [id number] PCP - General Internal Medicine 09/23/15 11/01/15 Moe Vaughan MD [address] [place] [id number] PCP - General Internal Medicine 11/02/15 11/10/15 Perry Belcher MD [address] [place] [id number] PCP - General Internal Medicine 11/11/15 04/16/17 Name, MD Tavon [address] [facility] [place] [address] PCP - General Internal Medicine 04/17/17 documented as of this encounter
--- OUTSIDE RECORDS SUMMARY | 2024-11-25 14:55 | XMS_ITS | Encounter Summary ---
Author Organization [facility] Address [address] [place] [address] Care Team Providers Care Contractor General Building Name Role Phone Perry Belcher MD Primary Care Provider Un available Name, Tavon PASTOR Primary Care Provider Unavailabl e Reason for Visit * Reason Onset Date Comments Medication 11/23/2015 Encounter Details Date Type Department Care Team Description 11/23/2015 Telephone Adult Medicine [address] [address] Perry Belcher MD Medication Social History Tobacco Use Types Packs/Day Years Used Date Smoking Tobacco: Former Cigarettes 0.5 7 Q uit: 08/28/1996 Smokeless Tobacco: Former Alcohol Use Standard Drinks/Week Comments Yes 0 (1 standard drink = 0.6 oz pur e alcohol) 1 glass wine per week @ most Sex Assigned at Date Recorded Not on file documented as of this encounter Miscellaneous Notes * Telephone Encounter - Doris Barrios - 11/25/2015 12:33 PM EDT Left a message to have patient call me if needed. * Telephone Encounter - Perry Belcher MD - 11/24/2015 5:35 PM EDT Discussion about tapering off oxycodone with patient is documented on last patient's visit, and he was given an AVS with printed instructions regarding oxycodone taper. At the time of visit, he expressed understanding and agreed. Instead of oxycodone for DM neuropathy, I started Lyrica, he alsohas an kp with neurology in 2 weeks. * Telephone Encounter - Doris Barrios - 11/23/2015 9:32 AM EDT Caller requesting call back from provider:Perry Belcher Is the caller the patient? YES If caller is not the patient, what is the callers name? N/A Callers relationship to patient? N/A If person calling is not the patient themselves, is there a verbal release in FYI or permanent comments for this person: NO Reason for call back: He was upset when he picked up his script on Monday and it was tapered again,he is fearful of not being able to take care of son if he cannot move from pain. I spoke to him about the new findings with jail pain medication and the new guidelines, and that he should give the other medications like lyrica a chance to work. I am not clinical and wondered if this could be ad dressed with the patient . He wanted to know when does he get another refill of this medication. Heis very worried about his future without pain medication. Caller offered to speak with the nurse for assistance: NO Response: Perry Belcher documented in this encounter Plan of Treatment Not on file documented as of this encounter Visit Diagnoses Not on filedocumented in this encounter Care Teams Contractor General Building Relationship Specialty Start Date End Date Perry Belcher MD PCP - General Internal Medicine 11/11/15 Tvaon Jj MD PCP - General Internal Medicine 04/17/17 documented as of this encounter
--- OUTSIDE RECORDS SUMMARY | 2024-11-25 14:55 | XMS_ITS | Encounter Summary ---
Author Organization [facility] Address [address] [place] [address] Care Team Providers Care Bath Design Sales Consultant Name Role Phone Perry Belcher MD Primary Care Provider Un available NameTavon MD Primary Care Provider Unavailabl e Encounter Details Date Type Department Care Team Description 01/12/2016 Controlled Substance Contract with Plan Medical Records [address] [place] [id number] Abstract, Provider Social History Tobacco Use Types Packs/Day Years [...] on filedocumented in this encounter Care Teams Bath Design Sales Consultant Relationship Specialty Start Date End Date Perry Belcher MD PCP - General Internal Medicine 11/11/15 Tavon Jj MD PCP - General Internal Medicine 04/17/17 documented as of this encounter
--- OUTSIDE RECORDS SUMMARY | 2024-11-25 14:55 | XMS_ITS | Encounter Summary ---
Author Organization [facility] Address [address] [place] [address] Care Team Providers Care Brownfield Redevelopment Site Manager Name Role Phone Name, Tavon PASTOR Primary Care Provider Unavailabl e Barbara Carmona MD Primary Care Provider [phone] Moe Vaughan MD Primary Care Provider Unavaila Perry Iverson MD Primary Care Provider Un available Name, Tavon PASTOR Primary Care Provider Unavailabl e Reason for Visit * Reason Comments Encounter Details Date Type Department Care Team Description 04/21/2015 Telephone Gastroenterology - [place] [address] [place] [phone] Antonio Perry MD Social History Tobacco Use Types Packs/Day [...] encounter Miscellaneous Notes * Telephone Encounter - Bud Guevara PA-C - 04/21/2015 2:[address] Perry, can we book this patient for his screening colonoscopy on the same day/time slot as his EGD? Please notify the patient and I will send the colon prep to the pharmacy. * Telephone Encounter - Bud Guevara PA-C - 04/21/2015 10:25 AM EDT Sure, I can take care of that when I am back in the office tomorrow. * Telephone Encounter - Antonio Oliver MD - 04/21/2015 10:17 AM EDT Pramod Ok to book screening colonoscopy on the same day/time slot of EGD Previous colonoscopy suboptimal due to the bowel preparation, per note, difficult procedure which is another reason to do it with MAC Can you notify the patient and send a bowel preparation ? Thank you antonio documented in this encounter Plan of Treatment Not on file documented as of this encounter Visit Diagnoses Not on filedocumented in this encounter Care Teams [employer] Redevelopment Site Manager Relationship Specialty Start Date End Date Parviz, MD Tavon PCP - General 10/20/07 09/22/15 Barbara Carmona MD [address] [place], [place] [id number] PCP - General Internal Medicine 09/23/15 11/01/15 Moe Vaughan MD [address] [place] [address] PCP - General Internal Medicine 11/02/15 11/10/15 Perry Belcher MD [address] [place] [address] PCP - General Internal Medicine 11/11/15 04/16/17 Name, MD Tavon [address] [place] [address] PCP - General Internal Medicine 04/17/17 documented as of this encounter
--- OUTSIDE RECORDS SUMMARY | 2024-11-25 14:55 | XMS_ITS | Encounter Summary ---
Author Organization [facility] Address [address] [facility] [address] [place] [address] Phone Care Team Providers Care Interactive Developer Name Role Phone Name, Tavon PASTOR Primary Care Provider [phone] Reason for Visit * Reason Comments Med Refill Encounter Details Date Type Department Care Team (Late Contact Info) Description 08/19/2021 Refill [facility] [address] [place] [address] [place] [address] [place] [phone] Type 2 diabetes mellitus with diabetic chronic kidney disease (HCC); Renal osteodystrophy; Chronic kidney disease, stage 4 (severe) (HCC) Social History Tobacco Use Types Packs/Day Years Used Date Smoking Tobacco: Former Cigarettes Q uit: 08/28/1994 Comments:Smoking History Inf o:Every day Sex and Gender Information Value Date Recorded Sex Assigned at Not on file Legal Sex Male 4:47 PM EST Gender Identity Not on file Sexual Orientation Not on file documented as of this encounter Plan of Treatment Upcoming Encounters Date Type Department Care Team (Late Contact Info) Description 12/27/2024 9:15 AM EDT Office Visit [facility] [address] [facility] [address] [place] [address] Souleymane Ba MD [address] [facility] [address] [place] [address] documented as of this encounter Visit Diagnoses Diagnosis Type 2 diabetes mellitus with diabetic chronic kidney disease (HCC) Renal osteodystrophy Chronic kidney disease, stage 4 (severe) (HCC) documented in this encounter Care Teams Interactive Developer Relationship Specialty Start Date End Date Name, MD Tavon [address] [place] [address] PCP - General 09/07/20 documented as of this encounter
--- OUTSIDE RECORDS SUMMARY | 2024-11-25 14:55 | XMS_ITS | Encounter Summary ---
Author Organization [facility] Address [address] [place] [address] Care Team Providers Care Roads Supervisor Name Role Phone Name, Tavon PASTOR Primary Care Provider Unavailabl Barbara Upton MD Primary Care Provider [phone] Moe Vaughan MD Primary Care Provider Unavaila Perry Iverson MD Primary Care Provider Un available Name, Tavon PASTOR Primary Care Provider Unavailabl e Encounter Details Date Type Department Care Team Description 01/09/2012 Telephone Adult Medicine [address] [address] Name, MD Tavon Social History Tobacco Use Types Packs/Day Years Used Date Smoking Tobacco: Former Cigarettes Q uit: 08/28/1996 Smokeless Tobacco: Never Alcohol Use Standard Drinks/Week Comments Yes 0 (1 standard drink = 0.6 oz pur e alcohol) rare wine Sex Assigned at Date Recorded Not on file documented as of this encounter Miscellaneous Notes * Telephone Encounter - Rebecca Zamora R.N. - 01/09/2012 4:51 PM EDT Pt had calls made at 1045, 1314,1524 and 1650. Message left each time that pt is to call immediatly, he has not responded to any calls. * Telephone Encounter - Rebecca Zamora R.N. - 01/09/2012 1:13 PM EDT I left a message for the patient to return my call. documented in this encounter Plan of Treatment Not on file documented as of this encounter Visit Diagnoses Not on filedocumented in this encounter Care Teams Roads Supervisor Relationship Specialty Start Date End Date Name, MD Tavon PCP - General 10/20/07 09/22/15 Barbara Carmona MD [address] [place] [address] PCP - General Internal Medicine 09/23/15 11/01/15 Moe Vaughan MD [address] [place] [address] PCP - General Internal Medicine 11/02/15 11/10/15 Perry Belcher MD [address] [place] [address] PCP - General Internal Medicine 11/11/15 04/16/17 Name, MD Tavon [address] [place] [address] PCP - General Internal Medicine 04/17/17 documented as of this encounter
--- OUTSIDE RECORDS SUMMARY | 2024-11-25 14:55 | XMS_ITS | Encounter Summary ---
Author Organization [facility] Address [address] [place] [address] Care Team Providers Care Field Identification Specialist Name Role Phone Name, Tavon PASTOR Primary Care Provider Unavailabl e Barbara Carmona MD Primary Care Provider [phone] Moe Vaughan MD Primary Care Provider Unavaila Perry Iverson MD Primary Care Provider Un available Name, Tavon PASTOR Primary Care Provider Unavailabl e Reason for Visit * Reason Onset Date Comments medication problems 12/24/2014 Encounter Details Date Type Department Care Team Description 12/24/2014 Refill Adult Medicine [address] [address] Name, MD Tavon medication problems Social History Tobacco Use Types Packs/Day Years Used Date Smoking Tobacco: Former Cigarettes 0.5 7 Q uit: 08/28/1996 Smokeless Tobacco: Former Alcohol Use Standard Drinks/Week Comments Yes 0 (1 standard drink = 0.6 oz pur e alcohol) 1 glass wine per week @ most Sex Assigned at Date Recorded Not on file documented as of this encounter Miscellaneous Notes * Telephone Encounter - Sherron Ruvalcaba M.A. - 12/24/2014 1:13 PM EDT Ok to switch * Telephone Encounter - Zahra Pino - 12/24/2014 10:32 AM EDT What is the name of the medication patient is having a problem with?: CARAFATE 1 GM/10ML suspension What is the problem?: INSURANCE WILL COVER TABLETS. Is the patient calling about the problem? NO If the patient is not the caller who is? FAX FROM PHARMACY Is this a NEW medication?: NO How long has the patient been taking this medication? UNKNOWN Who prescribed this medication for the patient? DR JOYNER Who is patients PCP?: Tavon Joyner [place] / [place] / Product Type: MEDICARE [id number] documented in this encounter Plan of Treatment Not on file documented as of this encounter Visit Diagnoses Not on filedocumented in this encounter Care Teams Field Identification Specialist Relationship Specialty Start Date End Date Parviz, MD Tavon PCP - General 10/20/07 09/22/15 Barbara Carmona MD [address] [place] [address] PCP - General Internal Medicine 09/23/15 11/01/15 Moe Vaughan MD [address] [place] [address] PCP - General Internal Medicine 11/02/15 11/10/15 Perry Belcher MD [address] [place] [address] PCP - General Internal Medicine 11/11/15 04/16/17 Tavon Joyner MD [address] [place] [address] PCP - General Internal Medicine 04/17/17 documented as of this encounter
--- OUTSIDE RECORDS SUMMARY | 2024-11-25 14:55 | XMS_ITS | Encounter Summary ---
Author Organization [facility] Address [address] [place] [address] Care Team Providers Care Baggage Screener Name Role Phone Name, Tavon PASTOR Primary Care Provider Unavailabl e Barbara Carmona MD Primary Care Provider [phone] Moe Vaughan MD Primary Care Provider Unavaila Perry Iverson MD Primary Care Provider Un available Name, Tavon PASTOR Primary Care Provider Unavailabl e Reason for Visit * Reason Onset Date Comments REFERRAL 07/28/2014 Encounter Details Date Type Department Care Team Description 07/28/2014 Telephone Adult Medicine [address] [address] NameTavon MD REFERRAL Social History Tobacco Use Types Packs/Day Years [...] * Telephone Encounter - Mabel Dang - 07/28/2014 11:50 AM EST Patient was referred to Physiatry for shoulder pain. He has not responded to any of our messages orletter that we have sent him to book an appointment. documented in this encounter Plan of Treatment Not on file documented as of this encounter Visit Diagnoses Not on filedocumented in this encounter Care Teams Baggage Screener Relationship Specialty Start Date End Date Tavon Jj MD PCP - General 10/20/07 09/22/15 Barbara Carmona MD [address] [place] [address] PCP - General Internal Medicine 09/23/15 11/01/15 Moe Vaughan MD [address] [place], [place] [phone] PCP - General Internal Medicine 11/02/15 11/10/15 Perry Belcher MD [address] [place], [place] [phone] PCP - General Internal Medicine 11/11/15 04/16/17 Name, MD Tavon [address] [place] [address] PCP - General Internal Medicine 04/17/17 documented as of this encounter
--- OUTSIDE RECORDS SUMMARY | 2024-11-25 14:55 | XMS_ITS | Clinical Summary ---
Demographics Address [address] [facility] [address] [place] [address] Home Phone Work Phone Preferred Language en Marital Status Unknown Yazidi Affiliation Unknown Race Black or Lulu rican Ethnic Group Unknown Author Organization [facility] Address [address] [facility] [address] [place] [address] Phone Care Team Providers Care Diver Helper Name Role Phone Name, Tavon PASTOR Primary Care Provider [phone] Allergies Active Allergy Reactions Criticality Noted Date Comments Oxycodone Other (see comments) 05/27/2021 Medications metoprolol succinate XL (TOPROL XL) 50 MG 24 hr tablet Take 1 tablet by mouth 1 (one) time each day Active insulin glargine (Lantus) 100 UNIT/ML injection 20 units bed time Active aspirin (ST LISA) 81 MG EC tablet Take 1 tablet by mouth 1 (one) time each day Active allopurinol (ZYLOPRIM) 100 MG tablet Take 1 tablet by mouth 1 (one) time each day Active albuterol HFA (PROVENTIL HFA;VENTOLIN HFA) 108 (90 Base) MCG/ACT inhaler if needed Active atorvastatin (LIPITOR) 80 MG tablet Take 80 mg by mouth 1 (one) time each day Active omeprazole (PriLOSEC) [address] capsule Take 20 mg by mouth 1 (one) time each day Do not crush or chew. Active senna (SENOKOT) 8.6 MG tablet Take 1 tablet by mouth 1 (one) time each day Active Dulaglutide (Trulicity) 1.5 MG/0.5ML solution pen-injector Inject under the skin Active enalapril (VASOTEC) 20 MG tablet Take 20 mg by mouth 1 (one) time each day Active Empagliflozin (Jardiance) 10 MG tablet Take 25 mg by mouth Active hydrALAZINE 100 MG tablet Take 100 mg by mouth in the morning and 100 mg in the evening. Take with meals. 2 Active famotidine (PEPCID) 20 MG tablet Take 20 mg by mouth 1 (one) time each day in the evening 2 Active amLODIPine (NORVASC) 10 MG tablet Take 10 mg by mouth 1 (one) time each day 2 Active acetaminophen (TYLENOL) 500 MG tablet Take 500 mg by mouth every 6 (six) hours if needed for mild pain Active Multiple Vitamin (multivitamin) tablet Take 1 tablet by mouth 1 (one) time each day Active bumetanide (BUMEX) 2 MG tablet Take 2 mg by mouth 1 (one) time each day Active ezetimibe (ZETIA) 10 MG tablet Take 10 mg by mouth 1 (one) time each day Active cetirizine (ZyrTEC) 10 MG tablet Take 10 mg by mouth 1 (one) time each day Active insulin lispro protamine-insul in lispro (HumaLOG 75-25) (75-25) 100 UNIT/ML suspension Inject 8 Units under the skin in the morning and 8 Units in the evening. Inject before meals. Active gabapentin (NEURONTIN) 300 MG capsule Take 300 mg by mouth in the morning and 300 mg in the evening and 300 mg before bedtime. Active spironolactone (ALDACTONE) 25 MG tabletIndicatio ns:Type 2 diabetes mellitus with diabetic chronic kidney disease (HCC),Renal disorder due to type 2 diabetes mellitus <Diabetic nephropathy> (HCC),Hypertens ion TAKE 1 TABLET BY MOUTH EVERY MORNING 30 tablet 11 5 Active torsemide (Demadex) 10 MG tablet Take 1 tablet (10 mg total) by mouth 1 (one) time each day 30 tablet 11 3 01/17/20 24 Discontinu ed(Med List Maintenanc e) Active Problems Problem Noted Date Diagnosed Date Chronic kidney disease, stage 4 (severe) 024 Allergic rhinitis 09/08/2023 Stage 3b chronic kidney disease 05/17/2022 Cerebrovascular accident 03/18/2022 Stage 3b chronic kidney disease 09/21/2021 Renal disorder due to type 2 diabetes mellitus 0 05/27/2021 Chronic kidney disease, stage 4 (severe) 021 Renal osteodystrophy 05/27/2021 Type 2 diabetes mellitus wit h diabetic chronic kidney disease 05/27/2021 Gout 07/27/2018 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 Ba ED. Disorder of eye due to type 2 diabetes mellitus 02/14/2013 Overview (05/27/2021): Mild background DR, NS- OU. Retinopathy due to diabetes mellitus 02/14/2013 Overview (05/27/2021): Mild background DR. Microalbuminuria 02/14/2013 Nuclear sclerosis 02/14/2013 Overview (05/27/2021): OU. Peripheral vascular disease 02/14/2013 Penile warts 05/04/2012 Overview (05/27/2021): Co2 laser 07/09 Neck pain 07/28/2010 Myofascial pain 07/28/2010 Cervical syndrome 07/28/2010 Trigger finger 07/02/2009 Carpal tunnel syndrome 07/02/2009 Gastroesophageal reflux disease 01/27/2009 Venous insufficiency 12/26/2008 Hypertension 10/31/2008 Polyneuropathy due to diabetes mellitus 03/13/20 07 Personal history of noncompl iance with medical treatment, presenting hazards to health 10/06/2006 Pure hypercholesterolemia 08/19/2005 Low back pain 08/19/2005 Encounters Date Type Department Care Team Description 09/17/2024 Refill [facility] [address] [place] [address] Souleymane Ba MD Type 2 diabetes mellitus with diabetic chronic kidney disease (HCC); Renal disorder due to type 2 diabetes mellitus <Diabetic nephropathy> (HCC); Hypertension from Last 3 Months Immunizations Name Administration Dates Next Due H1N1 Inj Preservative Free 09/01/2009 Hepatitis B 07/03/2023,01/27/2023,12/30/2022 Influenza TIV (IM) 06/02/2015, 3,05/04/2012,2009,06/01/2009,06/19/2007 Influenza, MDCK, PF, Quadrivalent 05/24/2019 Influenza, Quadrivalent, Pre servative Free 07/03/2023,05/30/2022,05/26/2021,2019 Influenza, Quadrivalent, Wit h Preservative 06/20/2017,06/24/2016 Moderna SARS-COV-2 12/30/2022 Pneumococcal Conjugate Pcv 20 12/20/2022 Shingrix 04/11/2023,12/20/2022 Tdap 12/20/2022,10/07/2011 Family History Medical History Relation Comments Diabetes Father Hypertension Father Diabetes Mother Hypertension Mother Relation Status Comments Father Mother Social History Tobacco Use Types Packs/Day Years Used Date Smoking Tobacco: Former Cigarettes Q uit: 08/28/1994 Comments:Smoking History Inf o:Every day Sex and Gender Information Value Date Recorded Sex Assigned at Not on file Legal Sex Male 4:47 PM EST Gender Identity Not on file Sexual Orientation Not on file Last Filed Vital Signs Vital Sign Reading Time Taken Comments Blood Pressure 138/62 01/17/2024 1:22 PM EDT Pulse 66 01/17/2024 1:22 PM EDT Temperature - - Respiratory Rate - - Oxygen Saturation 97% 01/17/2024 1:22 PM EDT Inhaled Oxygen Concentration - - Weight 116 kg (255 lb 12.8 oz) 01/17/2024 1:22 P M EDT Height 175.3 cm (5' 9 ) 02/19/2019 12:00 PM EDT Body Mass Index 37.78 02/19/2019 12:00 PM EDT Plan of Treatment Upcoming Encounters Date Type Department Care Team (Late st Contact Info) Description 12/27/2024 9:15 AM EDT Office Visit [facility] [address] [facility] [address] [place] [phone] Souleymane Ba MD [address] [phone] Health Maintenance Due Date Last Done Comments Colorectal Cancer Screening: Annual FOBT 2008 Colorectal Cancer Screening: Colonoscopy 2008 Colorectal Cancer Screening: Sigmoidoscopy 2008 Diabetes: Ophthalmology Exam 09/27/202003/2013, 09/20/2011, 07/06/2010 Diabetes: Pedal Pulse Checked 09/27/2020 Diabetes: Sensory Foot Exam 09/27/2020 Diabetes: Visual Foot Exam 09/27/2020 Influenza Vaccine (#1) 2024 3, 05/30/2022, 05/26/2021, Additional history exists Diabetes: Hemoglobin A1C 06/22/2024 024, 11/01/2023, 12/30/2022, Additional history exists Pneumococcal Vaccine: 65+ Years Completed 12/20/2022 Pneumococcal Vaccine: Pediatrics (0 to 5 Years) and At-Risk Patients (6 to 64 Years) Completed 12/20/2022 Hepatitis B Vaccine Aged Out 07/03/2023, 01/27/2023, 12/30/2022 No longer eligible based on patient's age to complete this topic Insurance MEDICAID [place] [employer] MEDICARE [place]ICAID [place] Member Subscriber Plan / Payer (Ef fective 2020-Present) Name:Tejas Mccord Relation to Subscriber:Self Name:Tejas Mccord Payer ID:Not on file Group ID:Not on file Type:Not on file Address: [address] UHC MEDICARE Care Teams Diver Helper Relationship Specialty Start Date End Date Name, MD Tavon [address] [place] [address] PCP - General 09/07/20
--- OUTSIDE RECORDS SUMMARY | 2024-11-25 14:55 | XMS_ITS | Encounter Summary ---
Author Organization [facility] Address [address] [place] [address] Care Team Providers Care Imaging Services Director Name Role Phone Name, Tavon PASTOR Primary Care Provider Unavailabl e Chucky Haney Primary Care Provider Unavailabl e Mason Zamora MD Primary Care Provider Unav ailable Barbara Carmona MD Primary Care Provider [phone] Moe Vaughan MD Primary Care Provider Unavaila Perry Iverson MD Primary Care Provider Un available Name, Tavon PASTOR Primary Care Provider Unavailabl e Encounter Details Date Type Department Care Team Description 04/25/2005 Orders Only Medical [address] [place] [id number] Stanley Styles PA-C DIABETES MELLITUS TYPE II-UNCOMPL (Primary Dx) Social History Tobacco Use Types Packs/Day Years Used Date Smoking Tobacco: Never Assessed Sex Assigned at Date Recorded Not on file documented as of this encounter Plan of Treatment Scheduled Orders Name Type Priority Associated Diagnoses Orde r Schedule VENIPUNCTURE Lab Routine Diabetes Mellitus Type Ii-Uncompl Ordered: 04/25/2005 documented as of this encounter Procedures Procedure Name Priority Date/Time Associated Diagnosis Comments MICROALBUMIN/CREATININ E, URINE Routine 04/25/2005 3:10 PM EDT Diabetes Mellitus Type Ii-Uncompl HEMOGLOBIN A1C Routine 04/25/2005 3:10 PM EDT Diabetes Mellitus Type Ii-Uncompl CHG URNLS DIP STICK/TABLET REAGENT AUTO MICROSCOPY Routine 04/25/2005 3:10 PM EDT Diabetes Mellitus Type Ii-Uncompl G BLOOD COUNT COMPLETE AUTO&AUTO DIFRNTL WBC Routine 04/25/2005 3:10 PM EDT Diabetes Mellitus Type Ii-Uncompl CHG LIPID PANEL Routine 04/25/2005 3:10 PM EDT Diabetes Mellitus Type Ii-Uncompl G COMPREHENSIVE METABOLIC PANEL Routine 04/25/2005 3:10 PM EDT Diabetes Mellitus Type Ii-Uncompl documented in this encounter Results * (ABNORMAL) URINALYSIS, COMPLETE (04/25/2005 3:10 PM EDT) GLUCOSE, URINE (UA) >=1000 NEGATIVE mg/dL [facility] BILIRUBIN URINE NEGATIVE NEGATIVE [facility] KETONE, URINE NEGATIVE NEGATIVE mg/dL [facility] SPECIFIC GRAVITY, URINE 1.044(H) 1.003 - 1.030 [facility] BLOOD, URINE NEGATIVE NEGATIVE [facility] PH, URINE 5.5 5.0 - 8.0 [facility] PROTEIN, URINE NEGATIVE <= TRACE mg/dl [facility] UROBILINOGEN, URINE 0.2 0.2 - 1.0 E.U./dL [facility] NITRITE,URINE NEGATIVE NEGATIVE [facility] LEUKOCYTE ESTERASE, URINE NEGATIVE NEGATIVE [facility] RBC-Urine 0 0 - 4 /HPF [facility] WBC-Urine 0 0 - 4 /hpf [facility] BACTERIA, URINE NEGATIVE [facility] 04/25/2005 3:10 PM EDT 04/25/2005 3:11 PM EDT H Jose Styles PA-C LAB [facility] * (ABNORMAL) MICROALBUMIN/CREATININE, URINE (04/25/2005 3:10 PM EDT) MICROALBUMIN, RANDOM 45.4(H) 0.0 - 29.0 mg/L [facility] MICROALB/CRE RATIO RANDOM 72.0(H) 0.0 - 30.0 mg/G [facility] CREATININE, RANDOM URINE 63 mg/dL [facility] 04/25/2005 3:10 PM EDT 04/25/2005 3:11 PM EDT H Jose Styles PA-C LAB Performing Organization Address [facility]/ZIP Co de Phone Number [facility] * (ABNORMAL) HEMOGLOBIN A1C (04/25/2005 3:10 PM EDT) Pathologist [facility] GLYCOSYLATED HEMOGLOBIN A1C 15.9(H) 4.0 - 6.0 % [facility] 04/25/2005 3:10 PM EDT 04/25/2005 3:11 PM EDT H Jose Styles PA-C LAB Performing Organization Address [facility] Co de Phone Number [facility] * (ABNORMAL) CBC (AUTO DIFF PLATELET) (04/25/2005 3:10 PM EDT) Pathologist [facility] WHITE BLOOD COUNT 6.6 4.8 - 10.8 x10-3 [facility] RED BLOOD COUNT 5.7(H) 4.5 - 5.5 x10-6 [facility] Hemoglobin 13.1 13.0 - 17.0 g/dL [facility] Hematocrit 41.6 40 - 51 % [facility] MEAN CORPUSCULAR VOLUME 73.5(L) 79 - 98 fl [facility] HEMOGLOBIN 23.1(L) 27 - 32 pg [facility] HGB CONC 31.5(L) 32 - 37 g/dl [facility] RED CELL DISTRIBUTION WIDTH 13.5 11 - 15 % [facility] PLT COUNT 253 130 - 400 x10-3 [facility] NEUTROPHILS % 49 41 - 85 % [facility] LYMPH % 43 15 - 48 % [facility] 04/25/2005 3:10 PM EDT 04/25/2005 3:11 PM EDT H Jose Styles PA-C LAB Performing Organization Address [facility]/ZIP Co de Phone Number [facility] * (ABNORMAL) LIPID PROFILE (04/25/2005 3:10 PM EDT) Cholesterol 425(H) 0 - 200 mg/dL [facility] TRIGLYCERIDES 887(H) 0 - 150 mg/dL [facility] Comment: If Triglyceride value is >= 500, LDL is not meaningful.RECHECKED HDL CHOLESTEROL 54 >40 mg/dL [facility] LDL CALCULATED 194(H) 0 - 100 mg/dL [facility] TC-HDLC RATIO 7.9(H) 0 - 4.4 mg/dL [facility] 04/25/2005 3:10 PM EDT 04/25/2005 3:11 PM EDT H Jose Styles PA-C LAB [facility] * (ABNORMAL) COMPREHENSIVE METABOLIC PANEL (04/25/2005 3:10 PM EDT) Pathologist [facility] GLUCOSE 355(H) 70 - 110 mg/dL [facility] Blood Urea Nitrogen 10 5 - 25 mg/dL [facility] creatinine 1.0 0.7 - 1.5 mg/dL [facility] BUN/CREATININE RATIO 10.0 6.0 - 20.0 G/dL [facility] Sodium 131(L) 133 - 145 mEq/L [facility] Potassium 3.6 3.5 - 5.2 mEq/L [facility] Chloride 97 96 - 108 mEq/L [facility] CARBON DIOXIDE (CO2) 24.8 21.0 - 32.0 mEq/L [facility] CALCIUM 9.4 8.5 - 10.5 mg/dL [facility] TOTAL PROTEIN (TP) 7.6 6.0 - 8.0 G/dL [facility] Albumin 4.8 3.2 - 5.6 G/dL [facility] GLOBULIN 2.8 1.9 - 4.4 G/dL [facility] ALBUMIN/GLOBULI N RATIO 1.7 1.1 - 2.3 [facility] BILIRUBIN TOTAL 0.3 0.0 - 1.4 mg/dL [facility] AST (SGOT) 17 10 - 42 U/L [facility] ALT (SGPT) 25 10 - 60 U/L [facility] Alk Phos 65 42 - 121 U/L [facility] 04/25/2005 3:10 PM EDT 04/25/2005 3:11 PM EDT H Jose Styles PA-C LAB [facility] documented in this encounter Visit Diagnoses Diagnosis Type II or unspecified type diabetes mellitus without mention of complication, not stated as uncontrolled- Primary documented in this encounter Care Teams Imaging Services Director Relationship Specialty Start Date End Date Name, MD Tavon PCP - General 10/20/07 09/22/15 Chucky Haney PCP - General 08/28/07 10/19/07 Mason Zamora MD PCP - General 05/07/01 08/27/07 Barbara Carmona MD [address] [place] [address] PCP - General Internal Medicine 09/23/15 11/01/15 Moe Vaughan MD [address] [place], [place] [id number] PCP - General Internal Medicine 11/02/15 11/10/15 Perry Belcher MD [address] [place], [place] [phone] PCP - General Internal Medicine 11/11/15 04/16/17 Name, MD Tavon [address] [place], [place] [phone] PCP - General Internal Medicine 04/17/17 documented as of this encounter
--- OUTSIDE RECORDS SUMMARY | 2024-11-25 14:55 | XMS_ITS | Encounter Summary ---
Author Organization [facility] Address [address] [place] [address] Care Team Providers Care Ocean Export Agent Name Role Phone Name, Tavon PASTOR Primary Care Provider Unavailabl e Barbara Carmona MD Primary Care Provider Moe Vaughan MD Primary Care Provider Unavaila ble Perry Belcher MD Primary Care Provider Un available Name, Tavon PASTOR Primary Care Provider Unavailabl e Encounter Details Date Type Department Care Team Description 07/28/2015 RAIL ENGINEER/[facility] Report Medical Records [address] [place] [id number] Abstract, Provider Social History Tobacco Use Types [...] on filedocumented in this encounter Care Teams Ocean Export Agent Relationship Specialty Start Date End Date Name, MD Tavon PCP - General 10/20/07 09/22/15 Barbara Carmona MD [address] [place] [id number] PCP - General Internal Medicine 09/23/15 11/01/15 Moe Vaughan MD [address] [place] [phone] PCP - General Internal Medicine 11/02/15 11/10/15 Perry Belcher MD [address] [place] [address] [place] [address] PCP - General Internal Medicine 11/11/15 04/16/17 Name, MD Tavon [address] [place] [address] PCP - General Internal Medicine 04/17/17 documented as of this encounter
--- OUTSIDE RECORDS SUMMARY | 2024-11-25 14:55 | XMS_ITS | Encounter Summary ---
Author Organization [facility] Address [address] [place] [address] Care Team Providers Care Manager Care Name Role Phone Name, Tavon PASTOR Primary Care Provider Unavailabl e Barbara Carmona MD Primary Care Provider [phone] Moe Vaughan MD Primary Care Provider Unavaila Perry Iverson MD Primary Care Provider Un available Name, Tavon PASTOR Primary Care Provider Unavailabl e Reason for Visit * Reason Onset Date Comments medication problems 01/01/2014 Encounter Details Date Type Department Care Team Description 01/01/2014 Telephone Adult Medicine [address] [address] Name, MD Tavon medication problems Social History [...] encounter Miscellaneous Notes * Telephone Encounter - Marly Prescott NP - 01/01/2014 1:19 PM EDT Rx fixed and re-sent * Telephone Encounter - Marguerite Aguirre - 01/01/2014 11:06 AM EDT What is the name of the medication patient is having a problem with?: gabapentin What is the problem?: please verify instruction. Is the patient calling about the problem? If the patient is not the caller who is? [facility] Is this a NEW medication?: NO How long has the patient been taking this medication? Who prescribed this medication for the patient? Marly Prescott Who is patients PCP?: Tavon Name Payor: [place]ARE-[place] Plan: [place] Product Type: MEDICARE [id number] documented in this encounter Plan of Treatment Not on file documented as of this encounter Visit Diagnoses Not on filedocumented in this encounter Care Teams Manager Care Relationship Specialty Start Date End Date Name, MD Tavon PCP - General 10/20/07 09/22/15 Barbara Carmona MD [address] [place] [address] PCP - General Internal Medicine 09/23/15 11/01/15 Moe Vaughan MD [address] [place] [address] PCP - General Internal Medicine 11/02/15 11/10/15 Perry Belcher MD [address] [place] [address] PCP - General Internal Medicine 11/11/15 04/16/17 Name, MD Tavon [address] [place] [address] PCP - General Internal Medicine 04/17/17 documented as of this encounter
--- OUTSIDE RECORDS SUMMARY | 2024-11-25 14:56 | XMS_ITS | Encounter Summary ---
Demographics Address [address] [facility] [address] [place] [address] Work Phone Mobile Phone Email Address Preferred Language en Marital Status Single Jehovah'S Witness Affiliation Unknown Race Black or Lulu rican Ethnic Group Not or Lati no Author Organization [employer] Address [address] [facility] [address] [place] [address] Care Team Providers Care Tile Shader Name Role Phone Name, Tavon PASTOR Primary Care Provider [phone] Reason for Visit * Reason Onset Date Comments Med Refill 06/27/2024 Encounter Details Date Type Department Care Team (Late st Contact Info) Description 06/27/2024 Refill [facility] MEDICINE [address] [place], [place] [phone] Kate Gilmore, JAZMIN [address] [place] [address] Type 2 diabetes mellitus with chronic kidney disease, with long-term current use of insulin, unspecified CKD stage (CMS/HCC) Social History Tobacco Use Types Packs/Day Years Used Date Smoking Tobacco: Never Smokeless Tobacco: Never Alcohol Use Standard Drinks/Week Comments Never 0 (1 standard drink = 0.6 oz pur e alcohol) Alcohol Answer Date Recorded Frequency of Alcohol Consumption Not on file 2024 Average Number of Drinks Not on file 024 Frequency of Binge Drinking Not on file 02/26 Score 0 2024 Depression Answer Date Recorded Patient Health Questionnaire-9 Score 0 2024 Patient Health Questionnaire-9 Score 0 2024 Last PHQ-9: Questionnaire Data Not on file 0 2024 Housing Stability Answer Date Recorded What is your housing situation today? I have housing today, but I am worried about losing housing in the future 07/31/[address] you li ve. Do you have problems with any of the following? None of the above 07/31/2023 Food Insecurity Answer Date Recorded Within the past 12 months, y ou worried that your food would run out before you got money to buy more: Never True 07/31/2023 Within the past 12 months,th e food you bought just didn't last and you didn't have enough money to get more: Never True 11/2022 Transportation Answer Date Recorded In the past 12 months, has l ack of transportation kept you from medical appts, meetings, work or from getting things needed for daily living? No 07/31/2023 Utilities Answer Date Recorded In the past 12 months, has t he electric, gas, oil or water company threatened to shut off services in your home? No 07/31/2023 Depression Answer Date Recorded Patient Health Questionnaire-2 Score 0 2024 Sex and Gender Information Value Date Recorded Sex Assigned at Male 06/27/2022 10:20 AM EDT Legal Sex Male 10:20 AM EDT Gender Identity Male 06/27/2022 10:20 AM EDT Sexual Orientation Straight 06/27/2022 10 :20 AM EDT documented as of this encounter Plan of Treatment Upcoming Encounters Date Type Department Care Team (Late st Contact Info) Description 11/26/2024 10:00 AM EDT Office Visit [facility] OPTOMETRY [address] [place] [address] documented as of this encounter Goals Goal Patient Goal Type Associated Problems Recent Progress Patient-Stated? Author Hemoglobin A1c < 7 Result Component 9.2( 4 2:57 PM EDT) No Rachel King, PharmD Record your blood sugar as directed Result Component No Christine, Rachel, PharmD Note: Use CGM, ensuring sensor is scanned at least once every 8 hours to capture 24H data. Check BG manually, as required. documented as of this encounter Visit Diagnoses Diagnosis Type 2 diabetes mellitus with chronic kidney disease, with long-term current use of insulin, unspecified CKD stage (CMS/HCC) documented in this encounter Additional Health Concerns Assessment Noted Time PHQ-9 Depression Total Score: 0 03/22/20 24 2:52 PM EDT documented as of this encounter Care Teams Tile Shader Relationship Specialty Start Date End Date Name, MD Tavon [address] [place] [address] PCP - General Family Medicine 02/25/16 documented as of this encounter
--- OUTSIDE RECORDS SUMMARY | 2024-11-25 14:56 | XMS_ITS | Encounter Summary ---
Author Organization [facility] Address [address] [place] [address] Care Team Providers Care Director Of Manufacturing Name Role Phone Perry Belcher MD Primary Care Provider Un available Name, Tavon PASTOR Primary Care Provider Unavailabl e Reason for Visit * Reason Onset Date Comments Nuclear Stress Testing 02/23/2016 Encounter Details Date Type Department Care Team Description 02/23/2016 Telephone Cardiology - [address] [address] Marlene Gallo PA-C Nuclear Stress Testing Social History Tobacco Use Types Packs/Day Years Used Date Smoking Tobacco: Former Cigarettes 0.5 7 Q uit: 08/28/1996 Smokeless Tobacco: Former Alcohol Use Standard Drinks/Week Comments Yes 0 (1 standard drink = 0.6 oz pur e alcohol) 1 glass wine per week @ most Sex Assigned at Date Recorded Not on file documented as of this encounter Miscellaneous Notes * Telephone Encounter - Eda Aguero - 02/23/2016 10:40 AM EDT Tejas Mccord has not responded to the telephone calls that were made on 02/03/16 and 02/10/16 as well as the letter that was sent on 02/12/16 to schedule a Nuclear Stress Testing ; therefore we are removing the test from our Scheduled Orders Report. Please note that this test must be reordered if required in the future. 02/03/2016 Medicare/Medicaid No auth req lm documented in this encounter Plan of Treatment Not on file documented as of this encounter Visit Diagnoses Not on filedocumented in this encounter Care Teams Director Of Manufacturing Relationship Specialty Start Date End Date Perry Belcher MD PCP - General Internal Medicine 11/11/15 Tavon Jj MD PCP - General Internal Medicine 04/17/17 documented as of this encounter
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
--- OUTSIDE RECORDS SUMMARY | 2024-11-25 14:56 | XMS_ITS | Encounter Summary ---
Author Organization [facility] Address [address] [place] [address] Care Team Providers Care Phy Therapist Name Role Phone Name, Tavon PASTOR Primary Care Provider Unavailabl e Barbara Carmona MD Primary Care Provider [phone] Moe Vaughan MD Primary Care Provider Unavaila ble Perry Belcher MD Primary Care Provider Un available Name, Tavon PASTOR Primary Care Provider Unavailabl e Encounter Details Date Type Department Care Team Description 03/01/2011 Refill Gastroenterology - [address] [address] Bassam Bryant MD Social History Tobacco Use Types Packs/Day [...] on filedocumented in this encounter Care Teams Phy Therapist Relationship Specialty Start Date End Date Name, MD Tavon PCP - General 10/20/07 09/22/15 Barbara Carmona MD [address] [place] [id number] PCP - General Internal Medicine 09/23/15 11/01/15 Moe Vaughan MD [address] [place] [address] PCP - General Internal Medicine 11/02/15 11/10/15 Perry Belcher MD [address] [place] [address] PCP - General Internal Medicine 11/11/15 04/16/17 Name, MD Tavon [address] [place] [phone] PCP - General Internal Medicine 04/17/17 documented as of this encounter
--- OUTSIDE RECORDS SUMMARY | 2024-11-25 14:56 | XMS_ITS | Encounter Summary ---
Demographics Address [address] [facility] [address] [place] [address] Work Phone Mobile Phone Email Address m Preferred Language en Marital Status Single Mandaen Affiliation Unknown Race Black or Lulu rican Ethnic Group Not or Lati no Author Organization [email or web address] Address [address] [facility] 7t [place] [address] Care Team Providers Care Porter Used Car Lot Name Role Phone Name, Tavon PASTOR Primary Care Provider [phone] Rachel King PharmD Unavailable [phone] Encounter Details Date Type Department Care Team (Late st Contact Info) Description 11/14/2022 Orders Only [facility] CHC MED & PEDS [address] [place], [place] [phone] Myrna Guzman LPN Social History Tobacco Use Types Packs/Day Years Used Date Smoking Tobacco: Never Smokeless Tobacco: Never Sex and Gender Information Value Date Recorded Sex Assigned at Male 06/27/2022 10:20 AM EDT Legal Sex Male 10:20 AM EDT Gender Identity Male 06/27/2022 10:20 AM EDT Sexual Orientation Straight 06/27/2022 10 :20 AM EDT documented as of this encounter Plan of Treatment Upcoming Encounters Date Type Department Care Team (Late Contact Info) Description 11/26/2024 10:00 AM EDT Office Visit [facility] OPTOMETRY [address] [place] [address] documented as of this encounter Procedures Procedure Name Priority Date/Time Associated Diagnosis Comments COVID-19 ID NOW (GOMEZ) Routine 07/24/2023 2:37 PM EST HIGH SENSITIVITY TROPONIN I Routine 07/24/2023 2:37 PM EST CBC WITH AUTO DIFFERENTIAL Routine 07/24/2023 2:37 PM EST PROTHROMBIN TIME-INR Routine 07/24/2023 2:37 PM EST LIPASE Routine 07/24/2023 2:37 PM EST HEPATIC FUNCTION PANEL Routine 07/24/2023 2:37 PM EST BASIC METABOLIC PANEL Routine 07/24/2023 2:37 PM EST documented in this encounter Results * High Sensitivity Troponin I (07/24/2023 2:37 PM EST) Pathologist [facility] [place] TROPONIN I HIGH SENSITIVITY 3.4 <3.5 - 35.0 ng/L [facility] Comment:The Gomez high sens itivity Troponin-I results should beused in conjunction with other diagnostic information suchas ECG, clinical observations and information, and patientsymptoms to aid in the diagnosis of VA. 07/24/2023 2:37 PM EST 07/24/2023 2:42 PM EST us Generic External Data Provider LAB BLOOD ORDERAB LES Final Result [facility] [address] [place] [phone] * COVID-19 ID NOW (GOMEZ) (07/24/2023 2:37 PM EST) Pathologist [facility] [place] IDNOW SERIAL# [id number] [facility] COVID-19 TEST Negative Negative [facility] COVID-19 NOTE See Note [facility] Comment: Results are for the identification of SARS-CoV2 RNA. TheSARS-CoV2 RNA is generally detectable in respiratory samplesduring the acute phase of infection. Positive results areindicative of the presence of SARS-CoV-2 RNA; clinicalcorrelation with patient history and other diagnosticinformation is necessary to determine patient infectionstatus. Positive results do not rule out bacterial infectionor co- infection with other viruses.Testing facilities within the [facility] and itsterritories are required to report all positive results tothe appropriate public health authorities.Negative results should be treated as presumptive and, ifinconsistent with clinical signs and symptoms or necessaryfor patient management, should be tested with differentauthorized or cleared molecular tests. Negative results donot preclude SARS-CoV2 RNA infection and should not be usedas the sole basis for patient management decisions. Negativeresults should be considered in the context of a patient'srecent exposures, history and the presence of clinical signsand symptoms consistent with COVID-19.This test has been authorized by the FDA under an EmergencyUse Authorization (EUA) for use by authorized laboratories.Testing performed on the [employer] ID NOW utilizing NAAT. 07/24/2023 2:37 PM EST 07/24/2023 2:42 PM EST Generic External Data Provider LAB MOLECULAR ALONA GNOSTICS ORDERABLES Final Result Performing Organization Address [facility] Co de Phone Number [facility] [address] [place] [phone] * Lipase (07/24/2023 2:37 PM EST) Pathologist [facility] [place] Lipase 40 8 - 78 U/L [facility] 07/24/2023 2:37 PM EST 07/24/2023 2:42 PM EST [employer] External Data Provider LAB BLOOD ORDERAB LES Final Result Performing Organization Address [facility] de Phone Number [facility] [address] [place] [phone] * (ABNORMAL) Basic Metabolic Panel (07/24/2023 2:37 PM EST) Sodium 140 135 - 145 mmol/L [facility] Potassium 3.6 3.3 - 5.1 mmol/L [facility] Chloride 106 96 - 108 mmol/L [facility] Carbon Dioxide 27 22 - 29 mmol/L [facility] Anion Gap 11(L) 12 - 20 [facility] Urea Nitrogen (BUN) 18(H) 9 - 16 mg/dL [facility] Creatinine, Serum 1.90(H) 0.5 - 1.4 mg/dL [facility] Creatinine Clr Calc Pharmacy 48.8 [facility] Comment:eGFR (calculated fro m the MDRD study equation) and eCrCl(calculated from the Cockcroft-Gault equation) are based ondifferent parameters and may not yield comparable results.If eCrCl result is absurd, please check patient'sheight/weight. Estimated Glomerular Filt Rate 36 [facility] Comment:NOTE: For -Am erican individuals, multiply the result by 1.210.Chronic Kidney Disease: Estimated GFR < 60 mL/min/1.14j8Dvffsc Kidney Disease: Estimated GFR < 15 mL/min/1.73m2 Glucose 169(H) 60 - 115 mg/dL [facility] Calcium 9.7 8.4 - 10.2 mg/dL [facility] 07/24/2023 2:37 PM EST 07/24/2023 2:42 PM EST us Generic External Data Provider LAB BLOOD ORDERAB LES Final Result [facility] [address] [place] [phone] * Hepatic Function Panel (07/24/2023 2:37 PM EST) Bilirubin, Total 0.4 0.0 - 1.0 mg/dL [facility] Bilirubin, Direct 0.1 0.0 - 0.5 mg/dL [facility] Aspartate Amino Transferase 17 5 - 37 U/L [facility] Alanine Aminotransferase 16 0 - 40 U/L [facility] Total Protein 7.9 6.5 - 8.0 g/dL [facility] Albumin Level 4.3 3.5 - 5.0 g/dL [facility] Alkaline Phosphatase 54 39 - 117 U/L [facility] 07/24/2023 2:37 PM EST 07/24/2023 2:42 PM EST Generic External Data Provider LAB BLOOD ORDERAB LES Final Result Performing Organization Address [facility]/ZIP Co de Phone Number [facility] [address] [place] [address] [phone] * Prothrombin Time-INR (07/24/2023 2:37 PM EST) [facility] Prothrombin Time 11.2 11.1 - 13.3 SEC [facility] INTERNATIONAL NORM RATIO 0.9 0.9 - 1.1 [facility] Comment:INTERNATIONAL NORMAL IZED RATIO (INR) REFERENCE RANGES Reference RangeFor patients not on anticoagulant therapy: 0.9 - 1.1INR ranges for oral anticoagulanttherapy:For prevention and treatment of venous thrombosis and pulmonary embolism: 2.0 - 3.0For acute myocardial infarction with aspirin therapy: 2.0 - 3.0For acute myocardial infarction without aspirin therapy: 3.0 - 4.0For patients with mechanical prosthetic heart valves: 2.5 - 3.5 07/24/2023 2:37 PM EST 07/24/2023 2:42 PM EST Generic External Data Provider LAB BLOOD ORDERAB LES Final Result Performing Organization Address [facility] Co de Phone Number [facility] [address] [place] [address] [phone] * (ABNORMAL) CBC auto differential (07/24/2023 2:37 PM EST) [facility] White Blood Count 8.1 4.8 - 10.8 X10*3/uL [facility] Red Blood Count 4.91 4.60 - 5.80 X10*6/uL [facility] Hemoglobin 11.8(L) 14.0 - 18.0 g/dl [facility] Hematocrit 39.2(L) 42.0 - 52.0 % [facility] Mean Corpuscular Volume 79.8(L) 80.0 - 98.0 fL [facility] Mean Corpuscular Hemoglobin 24.0(L) 27.0 - 33.0 pg [facility] Mean Corpuscular HGB Conc 30.1(L) 31.0 - 36.0 g/dl [facility] Red Cell Distribution Width 14.6 11.0 - 16.0 % [facility] Platelet Count 234 160 - 400 X10*3/uL [facility] Mean Platelet Volume 9.0(L) 9.4 - 12.4 fL [facility] Neutrophils Percent Auto 62.6 45 - 73 % [facility] Imm Gran Pct Auto 0.5(H) 0.0 - 0.4 % [facility] Lymphocytes Percent Auto 25.5 20 - 40 % [facility] Monocytes Percent Auto 8.3 2 - 11 % [facility] Eosinophils Percent Auto 2.7 0 - 4 % [facility] Basophils Percent Auto 0.4 0 - 2 % [facility] NRBC Pct Auto 0.0 0.0 - 0.2 /100WBC [facility] Neutrophils Absolute Auto 5.1 2.0 - 8.3 x10*3/uL [facility] Imm Gran Abs Auto 0.04(H) 0.00 - 0.03 X10*3/uL [facility] Lymphocytes Absolute Auto 2.1 1.2 - 4.9 X10*3/uL [facility] Monocytes Absolute Auto 0.7 0.1 - 1.2 X10*3/uL [facility] Eosinophils Absolute Auto 0.2 0.0 - 0.4 X10*3/uL [facility] Basophils Absolute Auto 0.0 0.0 - 0.2 X10*3/uL [facility] NRBC Abs Auto 0.000 0.0 - 0.012 X10*3/uL [facility] 07/24/2023 2:37 PM EST 07/24/2023 2:42 PM EST us Generic External Data Provider LAB BLOOD ORDERAB LES Final Result [facility] [address] [place] [address] [phone] documented in this encounter Visit Diagnoses Not on filedocumented in this encounter Care Teams [employer] Relationship Specialty Start Date End Date Name, MD Tavon [address] [place], [place] [phone] PCP - General Family Medicine 02/25/16 Rachel King PharmD [address] [place] [address] Pharmacist Internal Medicine 12/05/22 03/19/24 documented as of this encounter
--- OUTSIDE RECORDS SUMMARY | 2024-11-25 14:56 | XMS_ITS | Encounter Summary ---
Author Organization [facility] Address [address] [place] [address] Care Team Providers Care Physician Credentialing Specialist Name Role Phone Name, Tavon PASTOR Primary Care Provider Unavailabl Barbara Upton MD Primary Care Provider [phone] Moe Vaughan MD Primary Care Provider Unavaila Perry Iverson MD Primary Care Provider Un available Name, Tavon PASTOR Primary Care Provider Unavailabl e Encounter Details Date Type Department Care Team Description 05/02/2012 Telephone Adult [address] [address] Name, MD Tavon Social History Tobacco Use Types Packs/Day Years Used Date Smoking Tobacco: Former Cigarettes Q uit: 08/28/1996 Smokeless Tobacco: Never Alcohol Use Standard Drinks/Week Comments Yes 0 (1 standard drink = 0.6 oz pur e alcohol) rare wine Sex Assigned at Date Recorded Not on file documented as of this encounter Miscellaneous Notes * Telephone Encounter - Sherron Ruvalcaba M.A. - 05/03/2012 2:36 PM EDT uds ordered * Telephone Encounter - Fabiola Herrera M.A. - 05/03/2012 2:31 PM EDT Message left for Dr Jj to order UDS * Telephone Encounter - Rebecca Zamora R.N. - 05/03/2012 2:21 PM EDT Last RX for oxycontin 40 mg filled on 04/19 [id number] Sig: take one 4 times daily Expected remaining tablets: 54 Actual Pill Count number: 52 Provider notified of result: YES Appearance of medication tablet verified in Epocrates/PDR or patients pharmacy: Pill count performed by Rebecca Zamora R.N.. Witnessed by: patient Electronically signed by: Rebecca Zamora R.N. 05/03/2012 2:21 PM * Telephone Encounter - Rebecca Zamora R.N. - 05/03/2012 2:13 PM EDT Pt is here for drug screen and pill count. Please review and sign orders. I will send pt to the lab * Telephone Encounter - Tavon Jj MD - 05/03/2012 8:44 AM EDT noted * Telephone Encounter - Rebecca Zamora R.N. - 05/02/2012 2:03 PM EDT Pt was notified to appear with all control substance medications in their original containers for arandom Pill Count. Patient to bring in the following medication/: oxycontin 40 mg Pt was advised that they need to appear by 3:00 on 05/03. Instructed that failure to do so will jeopardize their Control Substance Contract with us. Pt expressed understanding and confirmed that they will arrive by that time. Pt states he has an appointment on Monday and would prefer to be seen then for pill count. He wasinstructed to come tomorrow for a pill count, although it is inconvenient it must be done within 24hours. He understands and agrees. documented in this encounter Plan of Treatment Not on file documented as of this encounter Results * METHYLPHENIDATE (RITALIN), URINE (05/03/2012 2:37 PM EDT) METHYLPHENIDA TE,UR NOT DETECTED NotDetected [facility] Comment: TEST PERFORMED AT: [employer] ? [address] ? [facility] [address] ? [phone] 05/03/2012 2:37 PM EDT 05/03/2012 2:38 PM EDT Tavon Jj MD LAB Performing Organization Address [facility] de Phone Number [facility] * ALCOHOL, URINE (05/03/2012 2:37 PM EDT) Pathologist [facility] ETHANOL,URINE NONE DETECTED ND [facility] Comment: Assay cutoff 50 mg/dL Semi-quantitative assay for screening purposes only. Unconfirmed screening result should not be used for non-medical purposes. *ALTERNATE METHOD CONFIRMATION DONE UPON REQUEST ONLY* 05/03/2012 2:37 PM EDT 05/03/2012 2:38 PM EDT Tavon LYNCH Performing Organization Address [facility] de Phone Number [facility] * METHADONE, URINE (05/03/2012 2:37 PM EDT) Pathologist [facility] METHADONE, URINE NONE DETECTED ND [facility] Comment: Assay cutoff 300 ng/mL Semi-quantitative assay for screening purposes only. Unconfirmed screening result should not be used for non-medical purposes. *ALTERNATE METHOD CONFIRMATION DONE UPON REQUEST ONLY* 05/03/2012 2:37 PM EDT 05/03/2012 2:38 PM EDT Tavon Jj MD LAB Performing Organization Address [facility] de Phone Number [facility] * BUPRENORPHINE, URINE (05/03/2012 2:37 PM EDT) Pathologist [facility] NORBUPRENORPHINE, UR LCMS [facility] Comment: Buprenorphine metabolites ??NOT DETECTED ?? Norbuprenorphine metabolites NOT DETECTED ?Analysis by High Performance Liquid Chromatography/Mass ?Spectrometry (LCMS) ?Test performed by [facility] ?[address] ?[place] [id number] ? 05/03/2012 2:37 PM EDT 05/03/2012 2:38 PM EDT Tavon Jj MD LAB Performing Organization Address [facility] de Phone Number [facility] * ASSAY, DIHYDROCODEINONE (05/03/2012 2:37 PM EDT) [facility] HYDROCODONE UR GCMS NOT DETECTED NOTDETECTED [facility] Comment: TEST PERFORMED AT: [employer] ? [address] ? [place] [address] ? [phone] HYDROMORPHONE UR GCMS NOT DETECTED NOTDETECTED [facility] Comment: TEST PERFORMED AT: [employer] ? [address] ? [place] [address] ? [phone] 05/03/2012 2:37 PM EDT 05/03/2012 2:38 PM EDT Tavon Jj MD LAB Performing Organization Address [facility]/ZIP Co de Phone Number [facility] * (ABNORMAL) OXYCODONE, URINE (05/03/2012 2:37 PM EDT) URINE OXYCODONE LEVEL POSITIVE( A) NEGATIVE [facility] Comment: Semi-quantitative urine assay for screening purposes only. Unconfirmed screening results should not be used for non-medical purposes. ALTERNATE METHOD CONFIRMATION DONE UPON REQUEST ONLY 05/03/2012 2:37 PM EDT 05/03/2012 2:38 PM EDT Tavon Jj MD LAB Performing Organization Address [facility] Co de Phone Number [facility] [address] [place] [address] * DRUG OF ABUSE SCREEN (05/03/2012 2:37 PM EDT) AMPHETAMINE, URINE NEGATIVE NEGATIVE [facility] BARBITURATES, URINE NEGATIVE NEGATIVE [facility] BENZODIAZEPINE , URINE NEGATIVE NEGATIVE [facility] COCAINE, URINE NEGATIVE NEGATIVE [facility] OPIATES, URINE NEGATIVE NEGATIVE [facility] MARIJUANA(THC) , URINE NEGATIVE NEGATIVE [facility] 05/03/2012 2:37 PM EDT 05/03/2012 2:38 PM EDT Tavon Jj MD LAB Performing Organization Address [facility] Co de Phone Number [facility] [address] [place] [address] documented in this encounter Visit Diagnoses Diagnosis Encounter for long-term (current) use of other medications- Primary documented in this encounter Care Teams Physician Credentialing Specialist Relationship Specialty Start Date End Date Name, MD Tavon PCP - General 10/20/07 09/22/15 Barbara Carmona MD [address] [place] [phone] PCP - General Internal Medicine 09/23/15 11/01/15 Moe Vaughan MD [address] [place] [phone] PCP - General Internal Medicine 11/02/15 11/10/15 Perry Belcher MD [address] [place] [address] PCP - General Internal Medicine 11/11/15 04/16/17 Name, MD Tavon [address] [place] [address] PCP - General Internal Medicine 04/17/17 documented as of this encounter
--- OUTSIDE RECORDS SUMMARY | 2024-11-25 14:56 | XMS_ITS | Encounter Summary ---
Demographics Address [address] [facility] [address] [place] [address] Work Phone Mobile Phone Email Address m Preferred Language en Marital Status Single Druze Affiliation Unknown Race Black or Lulu rican Ethnic Group Not or Lati no Author Organization [employer] Address [address] [facility] [address]t [place] [address] Care Team Providers Care Magnetic Tape Typewriter Operator Name Role Phone Name, Tavon PASTOR Primary Care Provider [phone] Reason for Visit * Reason Onset Date Comments Med Refill 04/17/2024 Encounter Details Date Type Department Care Team (Late st Contact Info) Description 04/17/2024 Refill [facility] MEDICINE [address] [place], [place] [phone] Kate Gilmore, JAZMIN [address] [place] [address] Type 2 diabetes mellitus with chronic kidney [...] Description 11/26/2024 10:00 AM EDT Office Visit [facility] OPTOMETRY [address] [place] [address] documented as of this encounter Goals Goal [...] documented as of this encounter Care Teams Magnetic Tape Typewriter Operator Relationship Specialty Start Date End Date Name, MD Tavon [address] [place] [address] PCP - General Family Medicine 02/25/16 documented as of this encounter
--- OUTSIDE RECORDS SUMMARY | 2024-11-25 14:56 | XMS_ITS | Encounter Summary ---
Author Organization [facility] Address [address] [place] [address] Care Team Providers Care Field Sales Trainer Name Role Phone Name, Tavon PASTOR Primary Care Provider Unavailabl e Barbara Carmona MD Primary Care Provider [phone] Moe Vaughan MD Primary Care Provider Unavaila ble Perry [place] MD Primary Care Provider Un available Name, Tavon PASTOR Primary Care Provider Unavailabl e Encounter Details Date Type Department Care Team Description 07/16/2012 [facility] Medical Records [address] [place] [phone] Price Daily MD Social History Tobacco Use Types Packs/Day [...] filedocumented in this encounter Care Teams Field Sales Trainer Relationship Specialty Start Date End Date Name, MD Tavon PCP - General 10/20/07 09/22/15 Barbara Carmona MD [address] [place] [phone] PCP - General Internal Medicine 09/23/15 11/01/15 Moe Vaughan MD [address] [place] [phone] PCP - General Internal Medicine 11/02/15 11/10/15 Perry Belcher MD [address] [place] [phone] PCP - General Internal Medicine 11/11/15 04/16/17 Name, MD Tavon [address] [place] [address] PCP - General Internal Medicine 04/17/17 documented as of this encounter
--- OUTSIDE RECORDS SUMMARY | 2024-11-25 14:56 | XMS_ITS | Encounter Summary ---
Demographics Address [address] [facility] [address] [place] [address] Work Phone Mobile Phone Email Address Preferred Language en Marital Status Single Baptism Affiliation Unknown Race Black or Lulu rican Ethnic Group Not or Lati no Author Organization [employer] Address [address] [facility] [address] [place] [address] Care Team Providers Care Carbonating Stone Cleaner Name Role Phone Name, Tavon PASTOR Primary Care Provider [phone] Reason for Visit * Reason Comments Med Refill Encounter Details Date Type Department Care Team ([facility] st Contact Info) Description 11/23/2024 Refill [facility] CHC MED & PEDS [address] [place] [address] Clover Hernandez MD [address] [place] [address] Social History Tobacco Use Types Packs/Day Years [...] Description 11/26/2024 10:00 AM EDT Office Visit [facility] OPTOMETRY [address] [place] [address] documented as of this encounter Goals Goal Patient Goal Type Associated Problems Recent Progress Patient-Stated? Author Hemoglobin A1c < 7 Result Component 9.2( 4 2:57 PM EDT) No PuiaKadenRachel, PharmD Record your blood sugar as directed Result Component No Rachel King, PharmD Note: Use CGM, ensuring sensor is scanned at least once every 8 hours to capture 24H data. Check BG manually, as required. documented as of this encounter Visit Diagnoses Not on filedocumented in this encounter Additional Health Concerns Assessment Noted Time PHQ-9 Depression Total Score: 0 03/22/20 24 2:52 PM EDT documented as of this encounter Care Teams Carbonating Stone Cleaner Relationship Specialty Start Date End Date Name, MD Tavon [address] [place] [address] PCP - General Family Medicine 02/25/16 documented as of this encounter
--- OUTSIDE RECORDS SUMMARY | 2024-11-25 14:56 | XMS_ITS | Encounter Summary ---
Author Organization [facility] Address [address] [place] [address] Care Team Providers Care [place] Cross[place] Supervisor Name Role Phone Name, Tavon PASTOR Primary Care Provider Unavailabl Barbara Upton MD Primary Care Provider [phone] Moe Vaughan MD Primary Care Provider Unavaila Perry Iverson MD Primary Care Provider Un available Name, Tavon PASTOR Primary Care Provider Unavailabl e Encounter Details Date Type Department Care Team Description 07/12/2012 Telephone Adult Medicine [address] [address] Bud Boyle MD Social History Tobacco Use Types Packs/Day Years Used Date Smoking Tobacco: Former Cigarettes Q uit: 08/28/1996 Smokeless Tobacco: Never Alcohol Use Standard Drinks/Week Comments Yes 0 (1 standard drink = 0.6 oz pur e alcohol) rare wine Sex Assigned at Date Recorded Not on file documented as of this encounter Miscellaneous Notes * Telephone Encounter - Fabiola Herrera M.A. - 07/16/2012 1:11 PM EST Called pt, he brother stated he was at [facility] now and he would have him call us when he got home. * Telephone Encounter - Bud Boyle MD - 07/16/2012 10:[address] galvan office get in touch with him? * Telephone Encounter - Bud Boyle MD - 07/12/2012 12:43 PM EST Patient is going for his surgery next week. I saw him for preop and cleared him. He has no information about his surgery where to go. I told him his surgery is at [facility] at 1:00 on Monday. I gave himthe number for Dr. Daily's office to contact him for further instructions. I also informed him to hold his metformin and NovoLog on the day of the surgery. I told him to hold his aspirin until after the surgery. I told him to hold his morning dose of Lantus the day of the surgery and to cut his evening dose to 25 units. He is n.p.o. on the day of the surgery. His diabetes is out of control. He does have a follow up appointment with Dr. servin in July. Can we have Dr. Daily's office contact the patient for further instructions. They said they sent him a packet of information however he neverreceived any information about his surgery. documented in this encounter Plan of Treatment Not on file documented as of this encounter Visit Diagnoses Not on filedocumented in this encounter Care Teams River Cross[place] Supervisor Relationship Specialty Start Date End Date Tavon Servin MD PCP - General 10/20/07 09/22/15 Barbara Carmona MD [address] [place] [address] PCP - General Internal Medicine 09/23/15 11/01/15 Moe Vaughan MD [address] [place] [id number] PCP - General Internal Medicine 11/02/15 11/10/15 Perry Belcher MD [address] [place], [place] [id number] PCP - General Internal Medicine 11/11/15 04/16/17 Tavon Servin MD [address] [place], [place] [id number] PCP - General Internal Medicine 04/17/17 documented as of this encounter
--- OUTSIDE RECORDS SUMMARY | 2024-11-25 14:56 | XMS_ITS | Encounter Summary ---
Demographics Address [address] [facility] [address] [place] [address] Work Phone Mobile Phone Email Address Preferred Language en Marital Status Single Jewish Affiliation Unknown Race Black or Lulu rican Ethnic Group Not or Lati no Author Organization [employer] Address [address] [facility] 7[address] [place] [address] Care Team Providers Care Appliance Counselor Name Role Phone Name, Tavon PASTOR Primary Care Provider [phone] Rachel King PharmD Unavailable Encounter Details Date Type Department Care Team ([facility] Contact Info) Description 02/06/2023 Abstract [facility] MEDICINE [address] [place] [address] Name, MD Tavon [address] [place] [address] Social History Tobacco Use Types Packs/Day Years Used Date Smoking Tobacco: Never Smokeless Tobacco: Never Alcohol Use Standard Drinks/Week Comments Never 0 (1 standard drink = 0.6 oz pur e alcohol) Sex and Gender Information Value Date Recorded Sex Assigned at Male 06/27/2022 10:20 AM EDT Legal Sex Male 10:20 AM EDT Gender Identity Male 06/27/2022 10:20 AM EDT Sexual Orientation Straight 06/27/2022 10 :20 AM EDT COVID-19 Exposure Response Date Recorded In the last 10 days, have yo u been in contact with someone who was confirmed or suspected to have Coronavirus/COVID-19? Unable to assess 02/02/2023 1:47 PM EDT documented as of this encounter Plan of Treatment Upcoming Encounters Date Type Department Care Team (Late Contact Info) Description 11/26/2024 10:00 AM EDT Office Visit [facility] OPTOMETRY [address] [place] [address] documented as of this encounter Goals Goal Patient Goal Type Associated Problems Recent Progress Patient-Stated? Author Hemoglobin A1c < 7 Result Component 9.2( 4 2:57 PM EDT) No Rachel King PharmD Record your blood sugar as directed Result Component No Rachel King PharmD Note: Use CGM, ensuring sensor is scanned at least once every 8 hours to capture 24H data. Check BG manually, as required. documented as of this encounter Procedures Procedure Name Priority Date/Time Associated Diagnosis Comments COLONOSCOPY Routine 04/25/2016 9:25 AM EDT documented in this encounter Results * Colonoscopy (04/25/2016 9:25 AM EDT) Colonoscopy Normal Normal Narrative Janette Prince - 04/25/2016 9:25 AM EDT Recommended 5 year follow up us Historical Provider HEALTH MAINTENANCE Final Result documented in this encounter Visit Diagnoses Not on filedocumented in this encounter Care Teams Appliance Counselor Relationship Specialty Start Date End Date Name, MD Tavon [address] [place] [address] PCP - General Family Medicine 02/25/16 Rachel King PharmD [address] [place] [address] Pharmacist Internal Medicine 12/05/22 03/19/24 documented as of this encounter
--- OUTSIDE RECORDS SUMMARY | 2024-11-25 14:56 | XMS_ITS | Encounter Summary ---
Author Organization [facility] Address [address] [place] [address] Care Team Providers Care Insurance Commissioner Name Role Phone Name, Tavon PASTOR Primary Care Provider Unavailabl e Chucky Haney Primary Care Provider Unavailabl e Mason Zamora MD Primary Care Provider Unav Barbara Villaseñor MD Primary Care Provider [phone] Moe Vaughan MD Primary Care Provider Unavaila Perry Iverson MD Primary Care Provider Un available Name, Tavon PASTOR Primary Care Provider Unavailabl e Encounter Details Date Type Department Care Team Description 06/07/2005 Orders Only Medical [address] [place] [address] [facility] [address] [place] [id number] ABDOMINAL PAIN, UNSPECIFIED SITE (Primary Dx) Social History Tobacco Use Types Packs/Day Years Used Date Smoking Tobacco: Never Assessed Sex Assigned at Date Recorded Not on file documented as of this encounter Plan of Treatment Scheduled Orders Name Type Priority Associated Diagnoses Orde r Schedule VENIPUNCTURE Lab Routine Abdominal Pain, Unspecified Site Ordered: 06/07/2005 documented as of this encounter Procedures Procedure Name Priority Date/Time Associated Diagnosis Comments CHG BLOOD COUNT COMPLETE AUTO&AUTO DIFRNTL WBC Routine 06/07/2005 2:01 PM EDT Abdominal Pain, Unspecified Site CHG COMPREHENSIVE METABOLIC PANEL Routine 06/07/2005 2:01 PM EDT Abdominal Pain, Unspecified Site documented in this encounter Results * (ABNORMAL) CBC (AUTO DIFF PLATELET) (06/07/2005 2:01 PM EDT) [facility] WHITE BLOOD COUNT 7.5 4.8 - 10.8 x10-3 [facility] RED BLOOD COUNT 5.4 4.5 - 5.5 x10-6 [facility] Hemoglobin 12.9(L) 13.0 - 17.0 g/dL [facility] Hematocrit 39.3(L) 40 - 51 % [facility] MEAN CORPUSCULAR VOLUME 73.5(L) 79 - 98 fl [facility] MEAN CORPUSCULAR HEMOGLOBIN 24.1(L) 27 - 32 pg [facility] MEAN CORPUSCULAR HGB CONC 32.8 32 - 37 g/dl [facility] RED CELL DISTRIBUTION WIDTH 13.3 11 - 15 % [facility] PLT COUNT 232 130 - 400 x10-3 [facility] NEUTROPHILS % 50 41 - 85 % [facility] L[facility] % 41 15 - 48 % [facility] 06/07/2005 2:01 PM EDT 06/07/2005 2:03 PM EDT [facility] * (ABNORMAL) COMPREHENSIVE METABOLIC PANEL (06/07/2005 2:01 PM EDT) [facility] GLUCOSE 357(H) 70 - 110 mg/dL [facility] Blood Urea Nitrogen 11 5 - 25 mg/dL [facility] CREAT 0.9 0.7 - 1.5 mg/dL [facility] GLOMERULAR FILTRATION RATE > 60 [facility] Comment: If patient is -Ivorian, multiply result by 1.21 Chronic Kidney Disease: < 60 ml/min/1.73 square meters Kidney Failure: < 15 ml/min/1.73 square meters BUN/CREAT RATIO 12.2 6.0 - 20.0 G/dL [facility] NA 134 133 - 145 mEq/L [facility] K 4.2 3.5 - 5.2 mEq/L [facility] CL 97 96 - 108 mEq/L [facility] CARBON DIOXIDE (CO2) 29.0 21.0 - 32.0 mEq/L [facility] CALCIUM 10.1 8.5 - 10.5 mg/dL [facility] TOTAL PROTEIN (TP) 7.8 6.0 - 8.0 G/dL [facility] Albumin 5.0 3.2 - 5.6 G/dL [facility] GLOBULIN 2.8 1.9 - 4.4 G/dL [facility] A/G RATIO 1.8 1.1 - 2.3 [facility] BILIRUBIN TOTAL 0.3 0.0 - 1.4 mg/dL [facility] SGOT 18 10 - 42 U/L [facility] SGPT 33 10 - 60 U/L [facility] ALK PHOS 70 42 - 121 U/L [facility] 06/07/2005 2:01 PM EDT 06/07/2005 2:03 PM EDT [facility] documented in this encounter Visit Diagnoses Diagnosis Abdominal pain, unspecified site- Primary documented in this encounter Care Teams Insurance Commissioner Relationship Specialty Start Date End Date Name, MD Tavon PCP - General 10/20/07 09/22/15 Chucky Haney PCP - General 08/28/07 10/19/07 Mason Zamora MD PCP - General 05/07/01 08/27/07 Barbara Carmona MD [address] [place] [id number] PCP - General Internal Medicine 09/23/15 11/01/15 Moe Vaughan MD [address] [place] [id number] PCP - General Internal Medicine 11/02/15 11/10/15 Perry Belcher MD [address] [place] [id number] PCP - General Internal Medicine 11/11/15 04/16/17 Name, MD Tavon [address] [place] [id number] PCP - General Internal Medicine 04/17/17 documented as of this encounter
--- OUTSIDE RECORDS SUMMARY | 2024-11-25 14:56 | XMS_ITS | Encounter Summary ---
Demographics Address [address] [facility] [address] [place] [address] Work Phone Mobile Phone Email Address m Preferred Language en Marital Status Single Zoroastrian Affiliation Unknown Race Black or Lulu rican Ethnic Group Not or Lati no Author Organization [employer] Address [address] [facility] [address] [place] [address] Care Team Providers Care Web Operations Manager Name Role Phone Name, Tavon PASTOR Primary Care Provider [phone] Reason for Visit * Reason Onset Date Comments Med Refill 04/15/2024 Encounter Details Date Type Department Care Team (Late st Contact Info) Description 04/15/[address] [facility] MEDICINE [address] [place], [place] [phone] Name, MD Tavon [address] [place] [address] Type 2 diabetes mellitus with chronic kidney [...] Description 11/26/2024 10:00 AM EDT Office Visit [facility] OPTOMETRY [address] [place] [address] documented as of this encounter Goals Goal [...] documented as of this encounter Care Teams Web Operations Manager Relationship Specialty Start Date End Date Name, MD Tavon [address] [place] [address] PCP - General Family Medicine 02/25/16 documented as of this encounter
--- OUTSIDE RECORDS SUMMARY | 2024-11-25 14:56 | XMS_ITS | Clinical Summary ---
Demographics Address [address] [place] [address] Work Phone Mobile Phone Email Address Preferred Language en Marital Status Single Christian Affiliation Unknown Race Black or Lulu rican Ethnic Group Not or Lati no Author Organization [employer] Address [address] [place] [address] Care Team Providers Care Technology Risk Intern Name Role Phone Name, Tavon PASTOR Primary Care Provider [phone] Allergies Active Allergy Reactions Criticality Noted Date Comments Other 07/11/2012 Other Reaction(s): Hives/Urticaria Oxycodone 02/25/2016 Other reaction(s): Other (see comments) Medications sildenafil (Viagra) 100 MG tablet Take 1 tablet by mouth if needed. 022 Active Continuous Blood Gluc Mold Carpenter (HiGearStyle Kale 2 [place]) deviceIndicati ons:Type 2 diabetes mellitus with hyperglycemia, with long-term current use of insulin ([facility]),Hype rtension, unspecified type Use as directed 1 each 023 Active Docusate Sodium (DSS) 100 MG capsule OTC 009 Active TRUEplus Lancets 33G miscIndication s:Type 2 diabetes mellitus with chronic kidney disease, with long-term current use of insulin, unspecified CKD stage ([facility]) Use up to twice daily, as directed, to check BG 100 each 5 023 Active spironolactone (Aldactone) 25 MG tablet TAKE 1 TABLET BY MOUTH 1 TIME EACH DAY. 023 Active Blood Pressure Monitor kitIndications :Hypertension, unspecified type Use to check blood pressure daily, as directed 1 kit 023 Active cyclobenzaprin e (Flexeril) 10 MG tabletIndicati ons:Acute right-sided low back pain without sciatica Take 1 tablet (10 mg) by mouth at bedtime for 10 days. 10 tablet Active fluticasone (Flonase) 50 MCG/ACT nasal sprayIndicatio ns:Allergic rhinitis, unspecified seasonality, unspecified trigger Administer 1 spray into each nostril in the morning. 16 g 2 Active esomeprazole (NexIUM) [address] capsule Take 40 mg by mouth in the morning. Active verapamil SR (Calan SR) 120 MG ER tabletIndicati ons:Throbbing headache Take 1 tablet (120 mg) by mouth at bedtime. Do not crush or chew. 30 tablet 11 024 2024 Active amLODIPine (Norvasc) 10 MG tabletIndicati ons:Hypertensi on, unspecified type,Type 2 diabetes mellitus with chronic kidney disease, with long-term current use of insulin, unspecified CKD stage (CMS/HCC) TAKE 1 TABLET BY MOUTH EVERY MORNING 90 tablet 3 Active enalapril (Vasotec) 20 MG tabletIndicati ons:Hypertensi on, unspecified type,Type 2 diabetes mellitus with chronic kidney disease, with long-term current use of insulin, unspecified CKD stage (CMS/HCC) TAKE 1 TABLET BY MOUTH EVERY MORNING 90 tablet 3 Active insulin pen needle (BD Pen Needle Herlinda 2nd Gen) 32G x 4 mm miscIndication s:Type 2 diabetes mellitus with chronic kidney disease, with long-term current use of insulin, unspecified CKD stage (CMS/HCC) Use 4 times daily for insulin injection 300 each Active Aspirin Adult Low Strength 81 MG EC tabletIndicati ons:Type 2 diabetes mellitus with chronic kidney disease, with long-term current use of insulin, unspecified CKD stage (CMS/HCC) TAKE 1 TABLET BY MOUTH EVERY MORNING 90 tablet 3 Active atorvastatin (Lipitor) 80 MG tabletIndicati ons:Type 2 diabetes mellitus with chronic kidney disease, with long-term current use of insulin, unspecified CKD stage (CMS/HCC) TAKE 1 TABLET BY MOUTH EVERY MORNING 90 tablet 3 024 Active hydrALAZINE (Apresoline) 100 MG tabletIndicati ons:Hypertensi on, unspecified type TAKE 1 TABLET BY MOUTH TWICE DAILY IN THE MORNING AND IN THE EVENING WITH FOOD 180 tablet Active Continuous Glucose Sensor (FreeStyle Kale 2 Sensor) miscIndication s:Type 2 diabetes mellitus with chronic kidney disease, with long-term current use of insulin, unspecified CKD stage (CMS/HCC) Use as directed 2 each Active senna (Senokot) 8.6 MG tablet TAKE 2 TABLETS BY MOUTH EVERY DAY AT BEDTIME FOR CONSTIPATION Active Alcohol Swabs (Alcohol Prep) 70 % padsIndication s:Type 2 diabetes mellitus with chronic kidney disease, with long-term current use of insulin, unspecified CKD stage (CMS/HCC) USE DIRECTED 4 TIMES DAILY 100 each Active ezetimibe (Zetia) 10 MG tabletIndicati ons:Type 2 diabetes mellitus with chronic kidney disease, with long-term current use of insulin, unspecified CKD stage (CMS/HCC) Take 1 tablet (10 mg) by mouth in the morning. 90 tablet Active dulaglutide (Trulicity) 3 MG/0.5ML solution pen-injectorIn dications:Type 2 diabetes mellitus with chronic kidney disease, with long-term current use of insulin, unspecified CKD stage (CMS/HCC) Inject 3 mg under the skin 1 (one) time per week. 2 mL Active insulin glargine (Lantus SoloStar) 100 UNIT/ML penIndications :Type 2 diabetes mellitus with chronic kidney disease, with long-term current use of insulin, unspecified CKD stage (CMS/HCC) Inject 24 units subQ once daily 15 mL Active insulin lispro (HumaLOG) 100 UNIT/ML injectionIndic ations:Type 2 diabetes mellitus with chronic kidney disease, with long-term current use of insulin, unspecified CKD stage (CMS/HCC) INJECT 10 UNITS SUBCUTANEOUSLY THREE TIMES DAILY WITH MEALS DIRECTED 15 mL Active metoprolol tartrate (Lopressor) 100 MG tablet Take 1 tablet (100 mg) by mouth 2 times daily. 60 tablet 2024 Active Jardiance 25 MGIndications: Type 2 diabetes mellitus with chronic kidney disease, with long-term current use of insulin, unspecified CKD stage (CMS/HCC) TAKE 1 TABLET BY MOUTH EVERY MORNING 90 tablet 1 024 Active famotidine (Pepcid) 20 MG tabletIndicati ons:Hypertensi on, unspecified type,Type 2 diabetes mellitus with chronic kidney disease, with long-term current use of insulin, unspecified CKD stage (CMS/HCC) TAKE 1 TABLET BY MOUTH EVERY EVENING 90 tablet 1 024 Active allopurinol (Zyloprim) 100 MG tabletIndicati ons:Hypertensi on, unspecified type,Type 2 diabetes mellitus with chronic kidney disease, with long-term current use of insulin, unspecified CKD stage (CMS/HCC) TAKE 1 TABLET BY MOUTH EVERY MORNING 90 tablet 1 024 Active cetirizine (ZyrTEC) 10 MG tabletIndicati ons:Allergic rhinitis, unspecified seasonality, unspecified trigger TAKE 1 TABLET BY MOUTH EVERY MORNING 90 tablet 1 024 Active gabapentin (Neurontin) 300 MG capsuleIndicat ions:Hypertens ion, unspecified type,Type 2 diabetes mellitus with chronic kidney disease, with long-term current use of insulin, unspecified CKD stage (CMS/HCC) TAKE 1 CAPSULE BY MOUTH THREE TIMES DAILY IN THE MORNING, AT NOON, AND IN THE EVENING 270 capsule 025 Active bumetanide (Bumex) 2 MG tablet TAKE 1 TABLET BY MOUTH TWICE DAILY IN THE MORNING AND IN THE EVENING 60 tablet 3 025 Active bumetanide (Bumex) 2 MG tablet TAKE 1 TABLET BY MOUTH TWICE DAILY IN THE MORNING AND IN THE EVENING 60 tablet 3 024 2024 Discontinued Active Problems Problem Noted Date Diagnosed Date Anxiety 04/30/2024 Chronic kidney disease, stage 4 (severe) 024 Hypertension 11/01/2023 Acute right-sided low back pain without sciatica 09/08/2023 Assessment & Plan (09/13/2023 12:31 PM EST): Apply heat on affected area PT referral XRAY Acetaminophen, diclofenac gel and flexeril (patient disability counselor about side effect somnolence I advise no to drive while on medication) Allergic rhinitis 09/08/2023 Cerebrovascular accident (CVA) 03/18/2022 Overview (11/01/2023): No residual deficits Patient presented to [facility] 10/05/2020 with right upper and lower extremity weakness and found to have multiple infarcts of the wesly, midbrain and posterior bilateral thalami. Random BG was also 680 mg/dL and A1C of 14%. Patient reported non- adherence to insulin therapy. Patient was discharged with clopidogrel 75mg daily and Tulicity 0.75mg subcutaneously weekly. Patient then presented to [facility] 10/08/2020 with similar symptoms and imaging compared to [facility] results showed no significant differences. Patient admitted to not starting the new clopidogrel, therefore patient was discharged 10/09/2020 with directions to start clopidogrel 75mg daily and atorvastatin 80mg daily. EKG, ECHO, MRA and carotid US did not reveal a cause for his stroke. Paroxysmal A.fib is suspected. He has upcoming appt for outpatient HR monitor Renal osteodystrophy 05/27/2021 07/31/2023 Gout 07/27/2018 07/31/2023 Acute gout due to renal impairment involving rig ht foot 06/04/2018 07/31/2023 Gout due to renal impairment 06/04/2018 Rash 12/18/2017 07/31/2023 Alternating exotropia 10/02/2017 07/31/2023 Presbyopia 10/02/2017 07/31/2023 Impotence 01/16/2017 07/31/2023 Pityriasis versicolor 06/24/2016 07/31/2023 Obstructive sleep apnea 05/27/2016 07/31/20 23 Tubular adenoma of colon 04/28/2016 023 Overview (07/31/2023): repeat screening colonoscopy in 2020 repeat screening colonoscopy in 2020 repeat screening colonoscopy in 2020 Chronic pain syndrome 02/25/2016 Chronic narcotic use 02/25/2016 07/31/2023 Edema of lower extremity 02/25/2016 023 Narcotic drug use 02/25/2016 Proteinuria 02/10/2016 07/31/2023 Stage 3 chronic kidney disease 02/09/2016 Obesity 05/01/2014 07/31/2023 Depressive disorder 06/28/2013 07/31/2023 Type 2 diabetes mellitus wit h ophthalmic manifestations, uncontrolled 02/14/2013 Overview (07/31/2023): Mild background DR. Mild background DR. Mild background DR, NS- OU. Type 2 diabetes mellitus 02/14/2013 Overview (07/31/2023): Mild background DR, JAY- OU. F/u Dr. Ba ED. F/u Dr. Ba ED. Microalbuminuria 02/14/2013 07/31/2023 Nuclear sclerosis 02/14/2013 07/31/2023 Overview (07/31/2023): OU. OU. Penile wart 05/04/2012 07/31/2023 Overview (07/31/2023): Co2 laser 07/09 Co2 laser 07/09 Cervical syndrome 07/28/2010 07/31/2023 Myofascial pain 07/28/2010 07/31/2023 Neck pain 07/28/2010 07/31/2023 Carpal tunnel syndrome 07/02/2009 Trigger finger 07/02/2009 07/31/2023 Gastroesophageal reflux disease 01/27/2009 07/31/2023 Venous insufficiency 12/26/2008 Peripheral vascular disease 10/31/2008 Diabetic polyneuropathy 03/13/2007 Personal history of noncompl iance with medical treatment, presenting hazards to health 10/06/2006 07/31/2023 Pure hypercholesterolemia 08/19/2005 Low back pain 08/19/2005 07/31/2023 Resolved Problems Problem Noted Date Diagnosed Date Resolved Date Cellulitis of lower limb 06/04/2018 07/31/202301/2024 Encounters Date Type Department Care Team Description 11/23/2024 Refill [facility] [address] [place] [address] Clover Hernandez MD 09/17/2024 Refill [facility] [address] [place] [address] Parviz, MD Tavon Hypertension, unspecified type; Type 2 diabetes mellitus with chronic kidney disease, with long-term current use of insulin, unspecified CKD stage (CMS/HCC) from Last 3 Months Immunizations Name Administration Dates Next Due Hep B, adult 07/03/2023,01/27/2023,12/30/2022 Influenza Injectable Quadriv alant Preservative Free IIV4 MDCK 05/24/2019 Influenza injectable quadriv alent IIV4 with preservative 06/20/2017,06/24/2016 Influenza injectable quadriv alent preservative free 07/03/2023,05/30/2022,05/26/2021,2019 Influenza, IIV3, injectable 06/02/2015,1 ,05/04/2012,2009,06/01/2009,06/19/2007 Moderna Covid-19 Vaccine 6+ Bivalent 12/30/2022 Novel [id number], preservative-free 09/01/2009 Pneumococcal Conjugate PCV 20 12/20/2022 RSV Bivalent 11/01/2023 Tdap 12/20/2022,10/07/2011 Zoster, Recombinant 04/11/2023,12/20/2022 Social History Tobacco Use Types Packs/Day Years Used Date Smoking Tobacco: Never Smokeless Tobacco: Never Tobacco Cessation:Counseling Given: Not Answered Alcohol Use Standard Drinks/Week Comments Never 0 [...] Orientation Straight 06/27/2022 10 :20 AM EDT Last Filed Vital Signs Vital Sign Reading Time Taken Comments Blood Pressure 167/87 04/30/2024 11:34 AM EDT Pulse 102 04/30/2024 11:34 AM EDT Temperature 36.2 ??C (97.1 ??F) 12/29/2023 11:03 AM E DT Respiratory Rate 16 04/30/2024 11:34 AM EDT Oxygen Saturation 98% 04/30/2024 11:34 AM EDT Inhaled Oxygen Concentration - - Weight 111 kg (244 lb 9.6 oz) 04/30/2024 11:34 A M EDT Height 175.3 cm (5' 9 ) 2024 2:48 PM EDT Body Mass Index 36.12 2024 2:48 PM EDT Plan of Treatment Upcoming Encounters Date Type Department Care Team (Late st Contact Info) Description 11/26/2024 10:00 AM EDT Office Visit [facility] [address] [place] [address] Health Maintenance Due Date Last Done Comments CT Colonography 1959 FIT DNA/Cologuard 1959 FIT 1959 FOBT 1960 Sigmoidoscopy 1959 Hepatitis C Screening 1977 COVID-19 Vaccine ( season) 2024 12/30/2022, 07/12/2021, 12/07/2020, Additional history exists Influenza Vaccine (#1) 2024 , 05/30/2022, 05/26/2021, Additional history exists Diabetes: Hemoglobin A1C 06/22/2024 024, 11/01/2023, 07/31/2023, Additional history exists SDOH Screening 07/31/2024 07/31/2023 Diabetes: Foot Exam 10/31/2024 11/01/2023, 11/01/2023, 11/01/2023, Additional history exists Lipid Panel 11/01/2024 11/02/2023, 11/27, 12/22/2022, Additional history exists Alcohol/Substance Use Screening 2025 2024 Depression Screening 2025 2024, 03/22/20 24 Tobacco Screening 04/30/2025 04/30/2024 Eye Exam 06/06/2026 06/06/2024 Colonoscopy 08/01/2027 08/01/2024, 12/12/2023, 12/14/2023, Additional history exists Colorectal Cancer Screening 08/01/2027 DTaP/Tdap/Td Vaccines (3 - Td or Tdap) 12/20/2032 12/20/2022, 10/07/2011 Pneumococcal Vaccine: 50+ Years Completed 12/20/2022 Zoster Vaccines Completed 04/11/2023, 12/20/2022 Hepatitis B Vaccines Completed 07/03/2023, 01/27/2023, 12/30/2022 RSV Patients and Patients Aged 60 years or older Completed 11/01/2023 HIB Vaccines Aged Out No longer eligi ble based on patient's age to complete this topic HPV Vaccines Aged Out No longer eligi ble based on patient's age to complete this topic Hepatitis A Vaccines Aged Out No long er eligible based on patient's age to complete this topic IPV Vaccines Aged Out No longer eligi ble based on patient's age to complete this topic Meningococcal Vaccine Aged Out No marcella krysta eligible based on patient's age to complete this topic RSV under 20 months Aged Out No longe r eligible based on patient's age to complete this topic Rotavirus Vaccines Aged Out No longer eligible based on patient's age to complete this topic Goals Goal Patient Goal Type Associated Problems Recent Progress Patient-Stated? Author Hemoglobin A1c < 7 Result Component 9.2( 2:57 PM EDT) No Rachel King, PharmD Record your blood sugar as directed Result Component No Rachel King, PharmD Note: Use CGM, ensuring sensor is scanned at least once every 8 hours to capture 24H data. Check BG manually, as required. Procedures Procedure Name Priority Date/Time Associated Diagnosis Comments HM COLONOSCOPY Routine 08/01/2024 POCT GLYCATED HEMOGLOBIN, TOTAL Routine 2024 2:57 PM EDT Type 2 diabetes mellitus with chronic kidney disease, with long-term current use of insulin, unspecified CKD stage (CMS/HCC) LIPID PANEL, STANDARD Routine 11/02/2023 12:11 PM EST Type 2 diabetes mellitus with chronic kidney disease, with long-term current use of insulin, unspecified CKD stage (CMS/HCC) Hypertension, unspecified type Stage 3a chronic kidney disease (CMS/HCC) from Last 3 Months or Most Recently Relevant to Health Maintenance Results * (ABNORMAL) Colonoscopy (08/01/2024) Colonoscopy Abnormal( A) Normal Comment:repeat in 3 years us Historical Provider HEALTH MAINTENANCE Edited Result - Final * (ABNORMAL) POCT HGB A1C (2024 2:57 PM EDT) Hemoglobin A1C 9.2(A) 4.0 - 6.0 % QC Media Lot # [id number] Lot# Expiration Date [id number] Blood 2024 2:57 PM EDT Tavon Name POINT OF CARE TEST ENTER/EDIT OR DERABLES Final Result * (ABNORMAL) Lipid Panel, Standard (11/02/2023 12:11 PM EST) Triglycerides 243(H) <150 mg/dL [facility] Comment:Desirable Triglyceri de: less than 150 mg/dLBorderline High Triglyceride 150-199 mg/dLHigh Triglyceride: 200-499 mg/dLVery High Triglyceride: greater than or equal to 5OO mg/dL Cholesterol 143 <200 mg/dL [facility] Comment:Desirable Cholestero l: less than 200 mg/dLBorderline High Cholesterol: 200-239 mg/dLHigh Cholesterol: greater than 239 mg/dL LDL Cholesterol Calculated 63 <100 mg/dL [facility] Comment:Desirable LDL: less than 100 mg/dLNear Optimal/Above Optimal LDL: 110- 129 mg/dLBorderline High LDL: 130-159 mg/dLHigh LDL: 160-189 mg/dLVery High LDL: greater than or equal to 190 mg/dL HDL Cholesterol 32(L) >40 mg/dL [facility] Comment:Desirable HDL: great er than 40 mg/dL Note: This HDL assay may give artificially low results in patients with liver disease. Blood Venous blood specimen / Unknown 11/02/2023 12:11 PM EST 11/02/2023 3:59 PM EST us Tavon Name LAB BLOOD ORDERABLES Final Resul t [facility] [address] [place] [address] [phone] from Last 3 Months or Most Recently Relevant to Health Maintenance Insurance [facility] STANDARD [facility] DUAL COMPLETE HMO * Guarantor: Tejas Mccord Account Type Relation to Patient Date of Phone Billing Address Personal/Family Self [address] [place] [address] Care Teams Technology Risk Intern Relationship Specialty Start Date End Date Name, MD Tavon [address] [place] [address] PCP - General Family Medicine 02/25/16
--- OUTSIDE RECORDS SUMMARY | 2024-11-25 14:56 | XMS_ITS | Clinical Summary ---
Author Organization [facility] Address [address] [place] [address] Care Team Providers Care Rubber Curer Name Role Phone Name, Tavon PASTOR Primary Care Provider [phone] Surgical History Surgery Date Site/Laterality Comments HERNIA REPAIR 1984 PROCEDURE: HISTORICAL HERNIA REPAIR/ING ESOPHAGOGASTRODUODENOSCOPY 05/25/07 PROCEDURE: VT EGD TRANSORAL BIOPSY SINGLE/MULTIPLE; COMMENT: Arian esophagitis(bx:acute fungal esophagitis, arian). Lanette test negative. SB Bx; chronic non-specific duodenitis ESOPHAGOGASTRODUODENOSCOPY 01/28/2010 PROCEDURE: VT EGD TRANSORAL BIOPSY SINGLE/MULTIPLE; COMMENT: Whitish plaques in esophagus consistent with candidiasis-biopsy:active esophagitis with fungasl hyphae, mild gastritis-biopsy:reactive gastropathy with active inflammation (HPylori-), normal duodenum second portion. COLONOSCOPY 05/25/07 PROCEDURE: VT COLONOSCOPY STOMA DX INCLUDING COLLJ SPEC SPX; COMMENT: Up to hepatic flexure, limited due to poor preparation, normal COLONOSCOPY 05/29/08 PROCEDURE: VT COLONOSCOPY STOMA DX INCLUDING COLLJ SPEC SPX; COMMENT: Up to cecum, regular preparation, normal colon exam ESOPHAGOGASTRODUODENOSCOPY May 18 2015 PROCEDURE: VT ESOPHAGOGASTRODUODENOSCOPY TRANSORAL DIAGNOSTIC; COMMENT: Done at [facility], retained food in stomach otherwise normal COLONOSCOPY May 18, 2015 PROCEDURE: HISTORICAL COLONOSCOPY; COMMENT: poor preparation; repeat in 6 months Medical History Medical History Date Comments Pure hypercholesterolemia 08/19/2005 DX:Pur e hypercholesterolemia Other acne 08/19/2005 DX:Other acne Lumbago 08/19/2005 DX:Lumbago Polyneuropathy in diabetes(357.2) 03/13/2007 DX:Polyneuropathy in diabetes(357.2) Type II or unspecified type diabetes mellitus with unspecified complication, not stated as uncontrolled DX:Type II or unspecified ty pe diabetes mellitus with unspecified complication, not stated as uncontrolled Unspecified essential hypertension DX:Unspecified essential hypertension Amblyopia, unspecified DX:Amblyo maya, unspecified Esophageal reflux DX:Esophageal reflux Severe sleep apnea 05/06/2016 DX:Severe sle ep apnea Family History Medical History Relation Name Comments Diabetes Mother Autoimmune disease Neg Hx Blindness Neg Hx Breast cancer Neg Hx Cataracts Neg Hx Colon cancer Neg Hx Coronary artery disease Neg Hx Glaucoma Neg Hx Heart attack Neg Hx Heart failure Neg Hx Hyperlipidemia Neg Hx Hypertension Neg Hx Macular degeneration Neg Hx Mental illness Neg Hx Prostate cancer Neg Hx Sleep apnea Neg Hx Strabismus Neg Hx Thyroid disease Neg Hx Relation Name Status Comments Brother Alive spine cancer Mother Social History Tobacco Use Types Packs/Day Years Used Date Smoking Tobacco: Former Cigarettes Q uit: 08/28/1996 Smokeless Tobacco: Former Alcohol Use Standard Drinks/Week Comments Yes 0 (1 standard drink = 0.6 oz pur e alcohol) Sex and Gender Information Value Date Recorded Sex Assigned at Not on file Legal Sex Male 2:49 PM EST Gender Identity Not on file Sexual Orientation Not on file Obstetrics History Last Filed Vital Signs Vital Sign Reading Time Taken Comments Blood Pressure - - Pulse - - Temperature - - Respiratory Rate - - Oxygen Saturation - - Inhaled Oxygen Concentration - - Weight 112 kg (248 lb) 07/14/2022 11:35 AM EST Height 177.8 cm (5' 10 ) 07/14/2022 11:35 AM EST Body Mass Index 35.58 07/14/2022 11:35 AM EST Plan of Treatment Health Maintenance Due Date Last Done Comments Diabetes: Annual GFR (Glomerular Filtration Rate) 1959 Diabetes: Annual Foot Exam 1969 Diabetes: Annual Retina Eye Exam 1969 Pneumococcal Vaccine: 50+ Years (1 of 1 - PCV) 2009 Zoster Vaccines (1 of 2) 2009 RSV Immunization Patients 60+ Years Old (1 - Risk 60-74 years 1-dose series) 2019 DTaP,Tdap,and Td Vaccines (2 - Td or Tdap) 10/07/2021 10/07/2011 Abdominal Aortic Aneurysm (AAA) Screen 07/27/2022 Cholesterol Screening (Lipid Panel) 07/27/2022 Colorectal Cancer Screening: Colonoscopy 07/27/2022 Depression Screening 07/27/2022 Hepatitis C Screening 07/27/2022 Social Influencers of Health Screening 07/27/2022 Diabetes: Annual Urine Albumin-Creatinine Ratio (uACR) 08/13/2022 Diabetes: Blood Sugar Control Test (HGBA1C) 08/13/2022 Hypertension/CHF/CAD Annual BMP Blood Test 08/13/2022 Falls Risk Assessment 2024 COVID-19 Vaccine ( season) 2024 Influenza Vaccine (#1) 2024 5, 06/03/2013, 05/04/2012, Additional history exists HIB Vaccines Aged Out No longer eligi ble based on patient's age to complete this topic HPV Vaccines Aged Out No longer eligi ble based on patient's age to complete this topic Hepatitis A Vaccines Aged Out No long er eligible based on patient's age to complete this topic Hepatitis B Vaccines Aged Out No long er eligible based on patient's age to complete this topic IPV Vaccines Aged Out No longer eligi ble based on patient's age to complete this topic MMR Vaccines Aged Out No longer eligi ble based on patient's age to complete this topic Meningococcal ACWY Vaccine Aged Out N o longer eligible based on patient's age to complete this topic Meningococcal B Vacine Aged Out No lo nger eligible based on patient's age to complete this topic Pneumococcal Vaccine: Pediatrics (0 to 5 Years) and At-Risk Patients (6 to 64 Years) Aged Out No longer eligible based on patient's age to complete this topic RSV Immunization Patients Under 20 months Aged Out No longer eligible based on patient's age to complete this topic Varicella Vaccines Aged Out No longer eligible based on patient's age to complete this topic Care Teams Rubber Curer Relationship Specialty Start Date End Date Name, MD Tavon [address] [place] [address] PCP - General Internal Medicine 04/17/17
--- OUTSIDE RECORDS SUMMARY | 2024-11-25 14:56 | XMS_ITS | Encounter Summary ---
Author Organization [facility] Address [address] [place] [address] Care Team Providers Care Fugitive Detective Name Role Phone Perry Belcher MD Primary Care Provider Un available NameTavon MD Primary Care Provider Unavailabl e Encounter Details Date Type Department Care Team Description 09/19/2016 Automation And Controls Instructor Report Medical Records [address] [place] [address] Souleymane Ba MD Social History Tobacco Use Types Packs/Day [...] on filedocumented in this encounter Care Teams Fugitive Detective Relationship Specialty Start Date End Date Perry Belcher MD PCP - General Internal Medicine 11/11/15 Tavon Jj MD PCP - General Internal Medicine 04/17/17 documented as of this encounter
== END 2024-11-25 13:40 | disposition home or self-care (01) ==
LOC: HO.PMC 13:13
PROVIDERS: PCP Internal Medicine Geriatric Medicine; Visit Provider Anesthesiology
DX: M47.816 Spondylosis without myelopathy or radiculopathy, lumbar region (principal); G58.9 Mononeuropathy, unspecified
CPT/HCPCS: 99213

== ENCOUNTER → 2024-11-25 13:12 | Outpatient (BNVA) | payer MEDICARE, MEDICAID, SELFPAY | PROVIDERS: PCP Internal Medicine Geriatric Medicine; Visit Provider Anesthesiology | DX: M47.816 Spondylosis without myelopathy or radiculopathy, lumbar region (principal); G58.9 Mononeuropathy, unspecified | CPT/HCPCS: 99212 ==

== ENCOUNTER 2024-12-27 10:41 | Outpatient (REF) | payer MEDICARE, MEDICAID, SELFPAY ==
--- OUTSIDE RECORDS SUMMARY | 2024-12-27 11:48 | XMS_ITS | Encounter Summary ---
Demographics Address [address] [facility] [address] [place] [address] Work Phone Mobile Phone Email Address Preferred Language en Marital Status Single Scientologist Affiliation Unknown Race Black or Lulu rican Ethnic Group Not or Lati no Author Organization [employer] Address [address] [facility] 7t [place] [address] Care Team Providers Care Occupational Physician Name Role Phone Name, Tavon PASTOR Primary Care Provider [phone] Reason for Visit * Reason Onset Date Comments Med Refill 06/27/2024 Encounter Details Date Type Department Care Team (Late st Contact Info) Description 06/27/2024 Refill [facility] [address] [place], [place] [phone] Kate Gilmore, JAZMIN [address] [place] [address] Type 2 diabetes mellitus with chronic kidney [...] Care Team (Late st Contact Info) Description 01/02/2025 1:00 PM EDT Office Visit [facility] [address] [place] [address] Alli, Merissa, OD [address] [place] [address] documented as of this encounter Goals Goal [...] Noted Time PHQ-9 Depression Total Score: 0 07/26/20 24 2:52 PM EDT documented as of this encounter Care Teams Occupational Physician Relationship Specialty Start Date End Date Name, MD Tavon [address] [place] [address] PCP - General Family Medicine 02/25/16 documented as of this encounter
--- OUTSIDE RECORDS SUMMARY | 2024-12-27 11:48 | XMS_ITS | Clinical Summary ---
Demographics Address [address] [facility] [address] [place] [address] Home Phone Work Phone Preferred Language en Marital Status Single Anabaptist Affiliation Unknown Race Black or Lulu rican Ethnic Group Unknown Author Organization [facility] Address [address] [facility] [address] [place] [address] Phone Care Team Providers Care Tableau Architect Name Role Phone Name, Tavon PASTOR Primary Care Provider [phone] Allergies Active Allergy Reactions Criticality Noted Date [...] EVERY MORNING 30 tablet 11 5 Active doxazosin (Cardura) 2 MG tablet Take 1 tablet (2 mg total) by mouth every night 90 tablet 3 5 12/28/19 26 Active torsemide (Demadex) 10 MG tablet Take 1 tablet (10 mg total) by mouth 1 (one) time each day 30 tablet 11 3 01/17/20 24 Discontinu ed(Med List Mainkarlianc e) Active Problems Problem Noted Date Diagnosed [...] Encounters Date Type Department Care Team Description 12/27/2024 9:15 AM EDT Office Visit [facility] [address] [address] Souleymane Ba MD Stage 3b chronic kidney disease (HCC) (Primary Dx); Renal osteodystrophy; Type 2 diabetes mellitus with diabetic chronic kidney disease (HCC) from Last 3 Months Immunizations Immunization Administration Dates Next Due H1N1 Inj Preservative [...] Sign Reading Time Taken Comments Blood Pressure 142/78 12/27/2024 9:30 AM EDT Pulse 78 12/27/2024 9:30 AM EDT Temperature - - Respiratory Rate - - Oxygen Saturation 96% 12/27/2024 9:30 AM EDT Inhaled Oxygen Concentration - - Weight 113 kg (249 lb 12.8 oz) 12/27/2024 9:30 A M EDT Height 175.3 cm (5' 9 ) 02/19/2019 12:00 PM EDT Body Mass Index 36.89 02/19/2019 12:00 PM EDT Plan of Treatment Upcoming Encounters Date Type Department Care Team (Late st Contact Info) Description 06/30/2025 1:15 PM EST Office Visit [facility] [address] [phone] Souleymane Ba MD [address] [phone] Health Maintenance Due Date Last Done Comments Colorectal Cancer Screening: Annual FOBT 2008 Colorectal Cancer Screening: Colonoscopy 2008 Colorectal Cancer Screening: Sigmoidoscopy 2008 Diabetes: Ophthalmology Exam 09/27/2020 04/04/2013, 09/20/2011, 07/06/2010 Diabetes: Pedal Pulse Checked 09/27/2020 Diabetes: Sensory Foot Exam 09/27/2020 Diabetes: Visual Foot Exam 09/27/2020 Diabetes: Hemoglobin A1C 06/22/2024 024, 11/01/2023, 12/30/2022, Additional history exists Influenza Vaccine (Season Ended) 2025 07/03/2023, 05/30/2022, 05/26/2021, Additional history exists Pneumococcal Vaccine: 50+ Years Completed 12/20/2022 Pneumococcal Vaccine: Peds (0 to 5 Years) and At-Risk Patients (6 to 49 Years) Discontinued 12/20/2022 Hepatitis B Vaccine Aged Out 07/03/2023, 01/27/2023, 12/30/2022 No longer eligible based on patient's age to complete this topic Insurance Medicaid [facility] Medicare Medicaid [facility] Medicare Care Teams Tableau Architect Relationship Specialty Start Date End Date Name, MD Tavon [address] [place] [id number] PCP - General 09/07/20
--- OUTSIDE RECORDS SUMMARY | 2024-12-27 11:48 | XMS_ITS | Encounter Summary ---
Demographics Address [address] [facility] [address] [place] [address] Work Phone Mobile Phone Email Address m Preferred Language en Marital Status Single Spiritism Affiliation Unknown Race Black or Lulu rican Ethnic Group Not or Lati no Author Organization [employer] Address [address] [facility] 7t [place] [address] Care Team Providers Care Waste Machine Operator Name Role Phone Name, Tavon PASTOR Primary Care Provider [phone] Rachel King PharmD Unavailable [phone] Encounter Details Date Type Department Care Team (Late st Contact Info) Description 11/14/2022 Orders Only [facility] [address] [place], [place] [phone] Myrna Guzman LPN Social History Tobacco Use [...] Department Care Team (Late Contact Info) Description 01/02/2025 1:00 PM EDT Office Visit [facility] [address] [place] [address] Alli, Merissa, OD [address] [facility] [place], [place] [phone] documented as of this encounter Procedures Procedure [...] Troponin I (07/24/2023 2:37 PM EST) Pathologist [facility] TROPONIN I HIGH SENSITIVITY 3.4 <3.5 - 35.0 ng/L [facility] Comment:The Gomez high sens itivity Troponin-I results should beused in conjunction with other diagnostic information suchas ECG, clinical observations and information, and patientsymptoms to aid in the diagnosis of MO. 07/24/2023 2:37 PM EST 07/24/2023 2:42 PM EST us Generic External Data Provider LAB BLOOD ORDERAB LES Final Result [facility] [address] [place] [phone] * COVID-19 ID NOW (GOMEZ) (07/24/2023 2:37 PM EST) Pathologist [facility] IDNOW SERIAL# [id number] [facility] COVID-19 TEST Negative Negative [facility] COVID-19 NOTE See Note [facility] Comment: Results are for the identification of SARS-CoV2 RNA. TheSARS-CoV2 RNA is generally detectable in respiratory samplesduring the acute phase of infection. Positive results areindicative of the presence of SARS-CoV-2 RNA; clinicalcorrelation with patient history and other diagnosticinformation is necessary to determine patient infectionstatus. Positive results do not rule out bacterial infectionor co- infection with other viruses.Testing facilities within the [place] and itsterritories are required to report all [...] use by authorized laboratories.Testing performed on the [employer] NOW utilizing NAAT. 07/24/2023 2:37 PM EST 07/24/2023 2:42 PM EST Generic External Data Provider LAB MOLECULAR ALONA GNOSTICS ORDERABLES Final Result Performing Organization Address [facility] Co de Phone Number [facility] [address] [place] [phone] * Lipase (07/24/2023 2:37 PM EST) Pathologist [facility] Lipase 40 8 - 78 U/L [facility] 07/24/2023 2:37 PM EST 07/24/2023 2:42 PM EST [employer] External Data Provider LAB BLOOD ORDERAB LES Final Result Performing Organization Address [facility] de Phone Number [facility] [address] [place] [phone] * (ABNORMAL) Basic Metabolic Panel (07/24/2023 2:37 PM EST) Pathologist [facility] Sodium 140 135 - 145 mmol/L [facility] Potassium 3.6 3.3 - 5.1 mmol/L [facility] Chloride 106 96 - 108 mmol/L [facility] Carbon Dioxide 27 22 - 29 mmol/L [facility] Anion Gap 11(L) 12 - 20 [facility] Urea Nitrogen (BUN) 18(H) 9 - 16 mg/dL [facility] Creatinine, Serum 1.90(H) 0.5 - 1.4 mg/dL [facility] Creatinine Clr Calc Pharmacy 48.8 [facility] Comment:eGFR (calculated fro m the MDRD study equation) and eCrCl(calculated from the Cockcroft-Gault equation) are based ondifferent parameters and may not yield comparable results.If eCrCl result is absurd, please check patient'sheight/weight. Estimated Glomerular Filt Rate 36 [facility] Comment:NOTE: For -Am erican individuals, multiply the result by 1.210.Chronic Kidney Disease: Estimated GFR < 60 mL/min/1.22g7Oqfnqg Kidney Disease: Estimated GFR < 15 mL/min/1.73m2 Glucose 169(H) 60 - 115 mg/dL [facility] Calcium 9.7 8.4 - 10.2 mg/dL [facility] 07/24/2023 2:37 PM EST 07/24/2023 2:42 PM EST us Generic External Data Provider LAB BLOOD ORDERAB LES Final Result [facility] [address] [place] [phone] * Hepatic Function Panel (07/24/2023 2:37 PM EST) Bilirubin, Total 0.4 0.0 - 1.0 mg/dL [facility] Bilirubin, Direct 0.1 0.0 - 0.5 mg/dL [facility] Aspartate Amino Transferase 17 5 - 37 U/L [facility] Alanine Aminotransferase 16 0 - 40 U/L [facility] Total Protein 7.9 6.5 - 8.0 g/dL [facility] Albumin Level 4.3 3.5 - 5.0 g/dL [facility] Alkaline Phosphatase 54 39 - 117 U/L [facility] 07/24/2023 2:37 PM EST 07/24/2023 2:42 PM EST us Generic External Data Provider LAB BLOOD ORDERAB LES Final Result Performing Organization Address [facility]/ZIP Co de Phone Number [facility] [address] [place] [phone] * Prothrombin Time-INR (07/24/2023 2:37 PM EST) Prothrombin Time 11.2 11.1 - 13.3 SEC [facility] INTERNATIONAL NORM RATIO 0.9 0.9 - 1.1 [facility] Comment:INTERNATIONAL NORMAL IZED RATIO (INR) [...] ORDERAB LES Final Result Performing Organization Address [facility] Co de Phone Number [facility] [address] [place] [phone] * (ABNORMAL) CBC auto differential (07/24/2023 2:37 PM EST) White Blood Count 8.1 4.8 - 10.8 X10*3/uL [facility] Red Blood Count 4.91 4.60 - 5.80 X10*6/uL [facility] Hemoglobin 11.8(L) 14.0 - 18.0 g/dl [facility] Hematocrit 39.2(L) 42.0 - 52.0 % [facility] Mean Corpuscular Volume 79.8(L) 80.0 - 98.0 fL [facility] Mean Corpuscular Hemoglobin 24.0(L) 27.0 - 33.0 pg [facility] Mean Corpuscular HGB Conc 30.1(L) 31.0 - 36.0 g/dl [facility] Red Cell Distribution Width 14.6 11.0 - 16.0 % [facility] Platelet Count 234 160 - 400 X10*3/uL [facility] Mean Platelet Volume 9.0(L) 9.4 - 12.4 fL [facility] Neutrophils Percent Auto 62.6 45 - 73 % [facility] Imm Gran Pct Auto 0.5(H) 0.0 - 0.4 % [facility] Lymphocytes Percent Auto 25.5 20 - 40 % [facility] Monocytes Percent Auto 8.3 2 - 11 % [facility] Eosinophils Percent Auto 2.7 0 - 4 % [facility] Basophils Percent Auto 0.4 0 - 2 % [facility] NRBC Pct Auto 0.0 0.0 - 0.2 /100WBC [facility] Neutrophils Absolute Auto 5.1 2.0 - 8.3 x10*3/uL [facility] Imm Gran Abs Auto 0.04(H) 0.00 - 0.03 X10*3/uL [facility] Lymphocytes Absolute Auto 2.1 1.2 - 4.9 X10*3/uL [facility] Monocytes Absolute Auto 0.7 0.1 - 1.2 X10*3/uL [facility] Eosinophils Absolute Auto 0.2 0.0 - 0.4 X10*3/uL [facility] Basophils Absolute Auto 0.0 0.0 - 0.2 X10*3/uL [facility] NRBC Abs Auto 0.000 0.0 - 0.012 X10*3/uL [facility] 07/24/2023 2:37 PM EST 07/24/2023 2:42 PM EST us Generic External Data Provider LAB BLOOD ORDERAB LES Final Result [facility] [address] [place] [phone] documented in this encounter Visit Diagnoses Not on filedocumented in this encounter Care Teams Waste Machine Operator Relationship Specialty Start Date End Date Name, MD Tavon [address] [place] [address] PCP - General Family Medicine 02/25/16 Rachel King PharmD [address] [place] [address] Pharmacist Internal Medicine 12/05/22 03/19/24 documented as of this encounter
--- OUTSIDE RECORDS SUMMARY | 2024-12-27 11:48 | XMS_ITS | Clinical Summary ---
Author Organization [facility] Address [address] [place] [address] Care Team Providers Care Weather Stripper Name Role Phone Name, Tavon PASTOR Primary Care Provider [phone] Surgical History Surgery Date Site/Laterality Comments HERNIA REPAIR 1984 PROCEDURE: HISTORICAL HERNIA REPAIR/ING ESOPHAGOGASTRODUODENOSCOPY 05/25/07 PROCEDURE: OR EGD TRANSORAL BIOPSY SINGLE/MULTIPLE; COMMENT: Arian esophagitis(bx:acute fungal esophagitis, arian). Lanette test negative. SB Bx; chronic non-specific duodenitis ESOPHAGOGASTRODUODENOSCOPY 01/28/2010 PROCEDURE: OR EGD TRANSORAL BIOPSY SINGLE/MULTIPLE; COMMENT: Whitish plaques in esophagus consistent with candidiasis-biopsy:active esophagitis with fungasl hyphae, mild gastritis-biopsy:reactive gastropathy with active inflammation (HPylori-), normal duodenum second portion. COLONOSCOPY 05/25/07 PROCEDURE: OR COLONOSCOPY STOMA DX INCLUDING COLLJ SPEC SPX; COMMENT: Up to hepatic flexure, limited due to poor preparation, normal COLONOSCOPY 05/29/08 PROCEDURE: OR COLONOSCOPY STOMA DX INCLUDING COLLJ SPEC SPX; COMMENT: Up to cecum, regular preparation, normal colon exam ESOPHAGOGASTRODUODENOSCOPY May 18 2015 PROCEDURE: OR ESOPHAGOGASTRODUODENOSCOPY TRANSORAL DIAGNOSTIC; COMMENT: Done at [facility], retained food in stomach otherwise normal [...] Vaccines (1 of 2) 2009 RSV Immunization Adult Patients (1 - Risk 60-74 years 1-dose series) [...] COVID-19 Vaccine ( season) 2024 Influenza Vaccine (Season Ended) 2025 06/02/2015, 06/03/2013, 05/04/2012, Additional history exists HIB Vaccines [...] age to complete this topic Meningococcal B Vaccine Aged Out No l onger eligible based on patient's age to complete [...] age to complete this topic Care Teams Weather Stripper Relationship Specialty Start Date End Date Name, MD Tavon [address] [place], [place] PCP - General Internal Medicine 04/17/17
--- OUTSIDE RECORDS SUMMARY | 2024-12-27 11:48 | XMS_ITS | Encounter Summary ---
Demographics Address [address] [facility] [address] [place] [address] Work Phone Mobile Phone Email Address Preferred Language en Marital Status Single Faith Affiliation Unknown Race Black or Lulu rican Ethnic Group Not or Lati no Author Organization [employer] Address [address] [facility] 7t [place] [address] Care Team Providers Care Manager School Name Role Phone Name, Tavon PASTOR Primary Care Provider [phone] Reason for Visit * Reason Comments Med Refill Encounter Details Date Type Department Care Team ([facility] st Contact Info) Description 12/10/2024 Refill [facility] [address] [place], [place] [phone] Name, MD Tavon [address] [place] [address] Hypertension, unspecified type; Type 2 diabetes mellitus [...] Description 01/02/2025 1:00 PM EDT Office Visit [facility] [address] [place] [address] Alli, Merissa, OD [address] [place] [address] documented as of this encounter Goals Goal [...] as of this encounter Visit Diagnoses Diagnosis Hypertension, unspecified type Type 2 diabetes mellitus with chronic kidney disease, with long-term current use of insulin, unspecified CKD stage (CMS/HCC) documented in this encounter Additional Health Concerns Assessment Noted Time PHQ-9 Depression Total Score: 0 03/22/20 24 2:52 PM EDT documented as of this encounter Care Teams Manager School Relationship Specialty Start Date End Date Name, MD Tavon [address] [place] [address] PCP - General Family Medicine 02/25/16 documented as of this encounter
--- OUTSIDE RECORDS SUMMARY | 2024-12-27 11:48 | XMS_ITS | Encounter Summary ---
Author Organization [facility] Address [address] [facility] [address] [place] [address] Phone Care Team Providers Care Plaster Whittler Name Role Phone Name, Tavon PASTOR Primary Care Provider [phone] Reason for Visit * Reason Comments Med Refill Encounter Details Date Type Department Care Team (Late Contact Info) Description 08/19/2021 Refill [facility] [address] [place] [phone] Souleymane Ba MD [address] [address] Type 2 diabetes mellitus with diabetic [...] Department Care Team (Late Contact Info) Description 06/30/2025 1:15 PM EST Office Visit [facility] [address] [facility] [address] [place] [address] Souleymane Ba MD [address] [facility] [address] [place] [address] documented as of this encounter Visit Diagnoses Diagnosis Type 2 diabetes mellitus with diabetic chronic kidney disease (HCC) Renal osteodystrophy Chronic kidney disease, stage 4 (severe) (HCC) documented in this encounter Care Teams Plaster Whittler Relationship Specialty Start Date End Date Name, MD Tavon [address] [place] [address] PCP - General 09/07/20 documented as of this encounter
--- OUTSIDE RECORDS SUMMARY | 2024-12-27 11:49 | XMS_ITS | Encounter Summary ---
Demographics Address 36 [facility] [address] [place] [address] Work Phone Mobile Phone Email Address m Preferred Language en Marital Status Single Hindu Affiliation Unknown Race Black or Lulu rican Ethnic Group Not or Lati no Author Organization [employer] Address [address] [facility] 7t [place] [address] Care Team Providers Care Automation Consultant Name Role Phone Name, Tavon PASTOR Primary Care Provider [phone] Reason for Visit * Reason Onset Date Comments Med Refill 04/15/2024 Encounter Details Date Type Department Care Team (Late st Contact Info) Description 04/15/2024 Refill [facility] [address] [place], [place] [phone] Name, MD Tavon [address] [place] [address] Type 2 diabetes mellitus with chronic kidney [...] Description 01/02/2025 1:00 PM EDT Office Visit [facility] [address] [place] [address] Alli, Merissa, OD [address] [place] [address] documented as of this encounter Goals Goal [...] documented as of this encounter Care Teams Automation Consultant Relationship Specialty Start Date End Date Name, MD Tavon [address] [place] [address] PCP - General Family Medicine 02/25/16 documented as of this encounter
--- OUTSIDE RECORDS SUMMARY | 2024-12-27 11:49 | XMS_ITS | Encounter Summary ---
Author Organization [facility] Address [address] [address] Phone Care Team Providers Care Clerical Support Specialist Name Role Phone Name, Tavon PASTOR Primary Care Provider [phone] Encounter Details Date Type Department Care Team (Late st Contact Info) Description 12/27/2024 9:15 AM EDT Office Visit [facility] [address] [address] Souleymane Ba MD [address] [address] Stage 3b chronic kidney disease (HCC) (Primary Dx); Renal osteodystrophy; Type 2 diabetes mellitus with diabetic chronic kidney disease (HCC) Social History Tobacco Use Types Packs/Day Years Used Date Smoking Tobacco: Former Cigarettes Q uit: 08/28/1994 Comments:Smoking History Inf o:Every day Sex and Gender Information Value Date Recorded Sex Assigned at Not on file Legal Sex Male 4:47 PM EST Gender Identity Not on file Sexual Orientation Not on file documented as of this encounter Last Filed Vital Signs Vital Sign Reading Time Taken Comments Blood Pressure 142/78 12/27/2024 9:30 AM EDT Pulse 78 12/27/2024 9:30 AM EDT Temperature - - Respiratory Rate - - Oxygen Saturation 96% 12/27/2024 9:30 AM EDT Inhaled Oxygen Concentration - - Weight 113 kg (249 lb 12.8 oz) 12/27/2024 9:30 A M EDT Height - - Body Mass Index 36.89 02/19/2019 12:00 PM EDT documented in this encounter Patient Instructions * Patient Instructions* Souleymane Ba MD - 12/27/2024 9:15 AM EDT No NSAIDS - Do not take non-steroidal anti-inflammatory medications (NSAIDS) such as Ibuprofen (Advil, Motrin, etc), Naproxen (Aleve, etc), Celecoxib (Celebrex) or Ketoprofen. These common arthritis medications can cause permanent kidney damage or worsen your kidney damage. For mild occasional pain, Acetaminophen (Tylenol, etc) is safe for your kidneys. Sodium and Your CKD Diet: How to Spice Up Your Cooking What is sodium? Sodium is a mineral found naturally in foods and is the major part of table salt. What are the effects of eating too much sodium? When your kidneys are not healthy, extra sodium and fluid build up in your body. This can cause swollen ankles, puffiness, a rise in blood pressure, shortness of breath, and/or fluid around your heart and lungs. See the following table for suggestions on how to reduce sodium in your diet. LIMIT THE [AMOUNT OF... FOOD TO LIMIT BECAUSE OF THEIR HIGH SODIUM CONTENT ACCEPTABLE SUBSTITUTES SALT & SALT SEASONINGS Table salt Seasoning salt Garlic salt Onion salt Celery salt Lemon pepper Lite salt Meat tenderizer Bouillon cubes Flavor enhancers Fresh garlic, fresh onion, garlic powder, onion powder, black [pepper, lemon juice, low-sodium/salt-free seasoning blends, vinegar SALTY FOODS Barbecue sauce Steak sauce Soy sauce Teriaky sauce Oyster sauce Salted Snacks such as Crackers Potato chips [place] chips Pretzels Tortilla chips Nuts Popcorn Freeborn seeds Homemade or low- sodium sauces and salad dressings; Vinegar, dry mustard, unsalted popcorn, pretzels, tortilla or corn chips Cured Foods Ham Salt pork Barber Sauerkraut Pickles, pickle relish Lox & [place] Olives Fresh beef, veal, pork, poultry, fish, eggs [place] MEATS Hot Dogs Cold cuts, deli meats Pastrami Sausage Corned beef Spam Low-salt deli meats PROCESSED FOODS Buttermilk Cheese Canned: Soups Tomato products Vegetable juices Canned vegetables Convenience Foods such as: TV Dinners Canned raviolis [place] Macaroni & Cheese Spaghetti Frozen prepared foods Fast foods Natural cheese (1-2 oz Per week) Homemade or narcisa,1- sodium soups, canned food without added salt Homemade casseroles without added salt, made with fresh or raw vegetables, fresh meat, edmundo, pasta, or unsalted canned vegetables Some salt or sodium is needed for body water balance. But when your kidneys lose the ability to control sodium and water balance, you may experience the following: thirst fluid gain high blood pressure discomfort during dialysis By using less sodium in your diet, you can control these problems. Hints to keep your sodium intake down Cook with herbs and spices instead of salt. (Refer to Spice Up Your Cooking section for further suggestions.) Read food labels and choose those foods low in sodium. Avoid salt substitutes and specialty low-sodium foods made with salt substitutes because they are high in potassium. When eating out, ask for meat or fish without salt. Ask for gravy or sauce on the side; these may contain large amounts of salt and should be used in small amounts . Limit use of canned, processed and frozen foods. Some information about reading labels Understanding the terms: Sodium Free - Only a trivial amount of sodium per serving. Very Low Sodium - 35 mg or less per serving. Low Sodium - 140 mg or less per serving. Reduced Sodium - Foods in which the level of sodium is reduced by 25%. Light or Lite in Sodium - Foods in which the sodium is reduced by at least 50% . Simple rule of thumb : If salt is listed in the first five ingredients, the item is probably too high in sodium to use. All food labels now have milligrams (mg) of sodium listed. Follow these steps when reading the sodiwn information on the label: 1. Know how much sodium you are allowed each day. Remember that there are 1000 milligrams (mg) in 1gram. For tyfo9int, if your diet prescription is 2 grams of sodium , your limit is 2000 milligrams per day. Consider the sodium value or other food to be eaten during the day. 2. Look at the package label. Check the serving size. Nutrition values are expressed per josé miguel g. How does this compare to your total daily allowance? If the sodium level is 500 mg or more per serving, the item is not a good choice. 3. Compare labels of similar products. Select the lowest sodium level for the same serving size. How to Spice Up Your Cooking Giving up salt does not mean giving up flavor. Learn to season your food with herbs and spices. Be creative and experiment for a new and exciting flavor. What kinds of spices and herbs should I use instead of salt to add flavor? Try the following spices with the foods listed. Allspice: Use with beef, fish, beets, cabbage, canots, peas, fruit. Basil: Use with beef, pork, most vegetables. [place]: Use with beef, pork, most vegetables. Odette: Use with beef, pork, green beans, cauliflower, cabbage, beets, asparagus, and in dips and marinades. Cardamom: Use with fruit and in baked goods. [place]ckerman: Use with beef, chicken, pork, fish, green beans, carrots and in marinades. Dill: Use with beef, chicken, green beans, cabbage, carrots, peas and in dips. Corinne: Use with beef, chicken, pork, green beans, cauliflower and eggplant. Marjoram: Use with beef, chicken, pork, green beans, cauliflower and eggplant. Julia: Use with chicken, pork, cauliflower, peas and in marinades. Thyme: Use with beef, chicken, pork, fish, green beans, beets and carrots. [place]: Use with chicken, pork, eggplant and in dressing. Tarragon: Use with fish, chicken, asparagus, beets, cabbage, cauliflower and in marinades. Tips for cooking with herbs and spices Purchase spices and herbs in small amounts . When they sit on the shelf for years they lose their flavor. Use no more than ?? teaspoon of dried spice (?? of fresh) per pound of meat. Add ground spices to food about 15 minutes before the end of the cooking period. Add whole spices to food at least one hour before the end of the cooking period. Combine herbs with oil or butter, set for 30 minutes to bring out their flavor, then brush on foodswhile they cook, or brush meat with oil and sprinkle herbs one hour before coolcing. Crush dried herbs before adding to foods. Can I use salt substitutes? Caution! If you are told to limit potassium in your diet, be very cautious about using salt substitutes because most of them contain some form of potassium. Check with your doctor or dietitian beforeusing and salt substitute. [place] and create your own seasoning containing those spices that you like. If you would like to become a volunteer and find out more about what's happening where you live, contact your local [facility] Affiliate. Blood pressure monitoring education: Monitor home blood pressure values after sitting for 5 minutes with back and arm support. Keep a log. Bring your log and blood pressure cuff to your next visit. documented in this encounter Progress Notes * Souleymane Ba MD - 12/27/2024 9:15 AM EDT Images from the original note were not included. Patient Name: Tejas Mccord, Male Date of : 1960, 64 y.o. Date: 12/27/24 [] New Patient [x] Established Patient [] New Hospital Follow Up [] Established Hospital Follow Up [] Telemed Visit [] H&P Referring MD: Tavon Jj MD PCP: Tavon Jj MD Reason For Visit CKD 3, DM, HTN Tejas Mccord is a 64 y.o. male seen today in f/u regarding stage 3 CKD on backdrop of DM and HTN. Last seen 1 year ago and he had labs done in 04/2024 which showed Scr 0.94 --ques tion lab error with him today. Leg swelling controlled on Bumex 2 bid. Home SBPs 130-150s Denies chest pain or shortness of breath. No blood in the urine or difficulties urinating. Complains of mild arthritic complaints but avoids use of NSAIDs. The following portions of the patient's chart were reviewed in this encounter and updated as appropriate: Allergies Meds Constitutional: Negative for chills and fever. Respiratory: Negative for cough and shortness of breath. Cardiovascular: Negative for chest pain, palpitations and leg swelling. Gastrointestinal: Negative for abdominal pain, nausea and vomiting. Genitourinary: Negative for dysuria, frequency, hematuria and urgency. Full 13 point review of systems unremarkable except as noted above. Past Medical History: Diagnosis Date Gastroesophageal reflux disease Stage 3 chronic kidney disease Type 2 diabetes mellitus (HCC) PVD Past Surgical History: Procedure Laterality Date HERNIA REPAIR OTHER SURGICAL HISTORY eye surgery Social History Tobacco Use Smoking status: Former Current packs/day: 0.00 Types: Cigarettes Quit date: 08/28/1994 Years since quittin.3 Smokeless tobacco: Not on file Tobacco comments: Smoking History Info:Every day Substance Use Topics Alcohol use: Not on file Family History Problem Relation Age of Onset Hypertension Mother Diabetes Father Hypertension Father Diabetes Mother Current Outpatient Medications Medication Sig Dispense Refill acetaminophen (TYLENOL) 500 MG tablet Take 500 mg by mouth every 6 (six) hours if needed for mild pain albuterol HFA (PROVENTIL HFA;VENTOLIN HFA) 108 (90 Base) MCG/ACT inhaler if needed allopurinol (ZYLOPRIM) 100 MG tablet Take 1 tablet by mouth 1 (one) time each day amLODIPine (NORVASC) 10 MG tablet Take 10 mg by mouth 1 (one) time each day aspirin (ST LISA) 81 MG EC tablet Take 1 tablet by mouth 1 (one) time each day atorvastatin (LIPITOR) 80 MG tablet Take 80 mg by mouth 1 (one) time each day bumetanide (BUMEX) 2 MG tablet Take 2 mg by mouth 1 (one) time each day cetirizine (ZyrTEC) 10 MG tablet Take 10 mg by mouth 1 (one) time each day doxazosin (Cardura) 2 MG tablet Take 1 tablet (2 mg total) by mouth every night 90 tablet 3 Dulaglutide (Trulicity) 1.5 MG/0.5ML solution pen-injector Inject under the skin Empagliflozin (Jardiance) 10 MG tablet Take 25 mg by mouth enalapril (VASOTEC) 20 MG tablet Take 20 mg by mouth 1 (one) time each day ezetimibe (ZETIA) 10 MG tablet Take 10 mg by mouth 1 (one) time each day famotidine (PEPCID) 20 MG tablet Take 20 mg by mouth 1 (one) time each day in the evening gabapentin (NEURONTIN) 300 MG capsule Take 300 mg by mouth in the morning and 300 mg in the eveningand 300 mg before bedtime. hydrALAZINE 100 MG tablet Take 100 mg by mouth in the morning and 100 mg in the evening. Take with meals. insulin glargine (Lantus) 100 UNIT/ML injection 20 units bed time insulin lispro protamine-insulin lispro (HumaLOG 75-25) (75-25) 100 UNIT/ML suspension Inject 8 Units under the skin in the morning and 8 Units in the evening. Inject before meals. metoprolol succinate XL (TOPROL XL) 50 MG 24 hr tablet Take 1 tablet by mouth 1 (one) time each day Multiple Vitamin (multivitamin) tablet Take 1 tablet by mouth 1 (one) time each day omeprazole (PriLOSEC) [address] capsule Take 20 mg by mouth 1 (one) time each day Do not crush or chew. senna (SENOKOT) 8.6 MG tablet Take 1 tablet by mouth 1 (one) time each day spironolactone (ALDACTONE) 25 MG tablet TAKE 1 TABLET BY MOUTH EVERY MORNING 30 tablet 11 No current facility-administered medications for this visit. Allergies Allergen Reactions Oxycodone Other (see comments) Objective: Vitals: 12/27/24 0930 BP: 142/78 Pulse: 78 SpO2: 96% Weight: 249 lb 12.8 oz (113 kg) 146/78 eGFR Date Value Ref Range Status 05/27/2021 32 Final Est GFR Non Date Value Ref Range Status 05/17/2022 35 ML/MIN/1.73 M2 Final Comment: Creatinine based estimated glomerular filtration (eGFR) in adults is calculated using the National [employer] recommended 2020 CKD-EPI equation. Estimates GFR from serum creatinine, age and sex. Testing performed or reported by [facility], a Service of [facility], [address] [place] [id number] Marcel Maciel MD, Radioisotope Production Operator [facility]# [id number] Chemistry Lab Units 05/07/24 0000 03/22/24 1540 01/09/24 1530 11/02/23 1211 07/24/23 1437 12/30/22 1120 CREATININE mg/dL 0.94 2.24* 3.47* 2.57* 1.90* 2.19* BUN mg/dL 14 26* 64* 48* 18* 31* BUN / CREAT RATIO (calc) -- -- -- -- -- 14 GLUCOSE mg/dL -- 180* 217* 87 169* 218* POTASSIUM 5.2 4.2 4.0 4.1 3.6 3.3* SODIUM 141 138 137 137 140 140 CO2 mmol/L -- 28 22 32* 27 30 CHLORIDE 103.0 101 100 97 106 101 ALBUMIN g/dL -- 4.6 -- 4.6 -- -- BILIRUBIN TOTAL mg/dL -- 0.4 -- 0.3 -- -- AST U/L -- 23 -- 19 -- -- ALT U/L -- 27 -- 25 -- -- Bone Mineral Lab Units 05/07/24 0000 03/22/24 1540 01/09/24 1530 11/02/23 1211 07/24/23 1437 12/30/22 1120 CALCIUM mg/dL 10.4 10.5* 9.5 9.9 9.7 9.1 ALK PHOS U/L -- 61 -- 65 -- -- No lab exists for component: SPECGRAV , GLUCOSEUR , BILIRUBINUR , RBCUR , UPROTEIN , LEUKOCYTESUR , NITRITE PLAN: Assessment & Plan 64 Y/O M ANDRZEJ ON CKD VS PROG CKD IN DIABETIC HYPERTENSIVE PATIEN PRONE TO FLUID OVERLOAD, GOUT AND h/o POORLY CONTROLLED HTN 1. CKD 3b: c/w DN/HTN renlal dis 2. Proteinuria: c/w DN/HTN renal dis 3. DM 4. HTN: controlled; goal < 130/80 5. Hypervol: improved w incrdiuretics 6. Metabolic Bone Disease of CKD: cont to track CA, Phos, HCO3, PTH and vit D levels and treat accordingly To Maximize renal protection: - cont use ALYCIA-inhibitor ( COLETTE or ARB) -cont SGLT2i - target LDL < 70 -look to add Kerendia in future - cont to stress strict BP/BS control and avoid NSAIDS PLAN: repeat labs today; add cardura 2 mg qhs to push BP in target 120/80 range; avod NSAIDs He may be candidate for renal denervation to help w BP control and once this FDA procedure becomes avail we will explore if he is a candidate 1. Stage 3b chronic kidney disease (HCC) 2. Renal osteodystrophy 3. Type 2 diabetes mellitus with diabetic chronic kidney disease (HCC) Orders Placed This Encounter PTH, Intact Renal Function Panel Urinalysis with microscopic Urine Albumin / Creatinine Ratio Protein, Total, Random Urine w/Creatinine (Protein/Creat Ratio) Vitamin D 25 Hydroxy CBC Phosphorus Magnesium Albumin Calcium doxazosin (Cardura) 2 MG tablet Return in about 6 months (around 06/29/2025). Souleymane Ba MD Vitals reviewed. Constitutional: No distress. Cardiovascular: Normal rate, regular rhythm and normal heart sounds. He exhibits edema. Pulmonary/Chest: Effort normal and breath sounds normal. No respiratory distress. Abdominal: Soft. There is no abdominal tenderness. No hernia. Skin: Skin is warm and dry. Psychiatric: He has a normal mood and affect. His behavior is normal. documented in this encounter Plan of Treatment Upcoming Encounters Date Type Department Care Team (Late st Contact Info) Description 06/30/2025 1:15 PM EST Office Visit [facility] [address] [phone] Souleymane Ba MD [address] [phone] Scheduled Orders Name Type Priority Associated Diagnoses Orde r Schedule PTH, Intact Lab Routine Stage 3b chronic kidney disease (HCC) Renal osteodystrophy Type 2 diabetes mellitus with diabetic chronic kidney disease (HCC) Expected: 12/27/2024, Expires: 01/27/2026 Renal Function Panel Lab Routine Stage 3b chronic kidney disease (HCC) Renal osteodystrophy Type 2 diabetes mellitus with diabetic chronic kidney disease (HCC) Expected: 12/27/2024, Expires: 01/27/2026 Urinalysis with microscopic Lab Routine Stage 3b chronic kidney disease (HCC) Renal osteodystrophy Type 2 diabetes mellitus with diabetic chronic kidney disease (HCC) Expected: 12/27/2024, Expires: 01/27/2026 Urine Albumin / Creatinine Ratio Lab Routine Stage 3b chronic kidney disease (HCC) Renal osteodystrophy Type 2 diabetes mellitus with diabetic chronic kidney disease (HCC) Expected: 12/27/2024, Expires: 01/27/2026 Protein, Total, Random Urine w/Creatinine (Protein/Creat Ratio) Lab Routine Stage 3b chronic kidney disease (HCC) Renal osteodystrophy Type 2 diabetes mellitus with diabetic chronic kidney disease (HCC) Expected: 12/27/2024, Expires: 01/27/2026 Vitamin D 25 Hydroxy Lab Routine Stage 3b chronic kidney disease (HCC) Renal osteodystrophy Type 2 diabetes mellitus with diabetic chronic kidney disease (HCC) Expected: 12/27/2024, Expires: 01/27/2026 CBC Lab Routine Stage 3b chronic kidney disease (HCC) Renal osteodystrophy Type 2 diabetes mellitus with diabetic chronic kidney disease (HCC) Expected: 12/27/2024, Expires: 01/27/2026 Phosphorus Lab Routine Stage 3b chronic kidney disease (HCC) Renal osteodystrophy Type 2 diabetes mellitus with diabetic chronic kidney disease (HCC) Expected: 12/27/2024, Expires: 01/27/2026 Magnesium Lab Routine Stage 3b chronic kidney disease (HCC) Renal osteodystrophy Type 2 diabetes mellitus with diabetic chronic kidney disease (HCC) Expected: 12/27/2024, Expires: 01/27/2026 Albumin Lab Routine Stage 3b chronic kidney disease (HCC) Renal osteodystrophy Type 2 diabetes mellitus with diabetic chronic kidney disease (HCC) Expected: 12/27/2024, Expires: 01/27/2026 Calcium Lab Routine Stage 3b chronic kidney disease (HCC) Renal osteodystrophy Type 2 diabetes mellitus with diabetic chronic kidney disease (HCC) Expected: 12/27/2024, Expires: 01/27/2026 documented as of this encounter Procedures Procedure Name Priority Date/Time Associated Diagnosis Comments ALT EXT LABS Routine 05/07/2024 documented in this encounter Results * ALT EXT LABS (05/07/2024) BUN 14 4 - 21 mg/dL Creatinine 0.94 0.60 - 1.30 mg/dL Calcium 10.4 8.7 - 10.7 mg/dL Sodium 141 137 - 147 Potassium 5.2 3.4 - 5.5 Chloride 103.0 99.0 - 108.0 05/07/2024 Historical Provider LAB BLOOD ORDERABLES Rylee l Result documented in this encounter Visit Diagnoses Diagnosis Stage 3b chronic kidney disease (HCC)- Primary Renal osteodystrophy Type 2 diabetes mellitus with diabetic chronic kidney disease (HCC) documented in this encounter Care Teams Clerical Support Specialist Relationship Specialty Start Date End Date Name, MD Tavon [address] [place] [id number] PCP - General 09/07/20 documented as of this encounter
--- OUTSIDE RECORDS SUMMARY | 2024-12-27 11:49 | XMS_ITS | Clinical Summary ---
Demographics Address [address] [facility] [address] [place] [address] Work Phone Mobile Phone Email Address m Preferred Language en Marital Status Single Mormon Affiliation Unknown Race Black or Lulu rican Ethnic Group Not or Lati no Author Organization [employer] Address [address] [facility] [address] [place] [address] Care Team Providers Care Ramp Attendant Name Role Phone Name, Tavon PASTOR Primary Care Provider [phone] Allergies Active Allergy Reactions Criticality Noted Date Comments Other 07/11/2012 Other Reaction(s): Hives/Urticaria Oxycodone 02/25/2016 Other reaction(s): Other (see comments) Medications sildenafil (Viagra) 100 MG tablet Take 1 tablet by mouth if needed. 022 Active Continuous Blood Gluc Rig Hand (Bootstrap SoftwareStyle Kale 2 [place]) deviceIndicati ons:Type 2 diabetes mellitus with hyperglycemia, with long-term current use of insulin ([facility]),Hype rtension, unspecified type Use as directed 1 each 023 Active Docusate Sodium (DSS) 100 MG capsule OTC 009 Active TRUEplus Lancets 33G miscIndication s:Type 2 diabetes mellitus with chronic kidney disease, with long-term current use of insulin, unspecified CKD stage ([facility]) Use up to twice daily, as directed, [...] mg by mouth in the morning. Active amLODIPine (Norvasc) 10 MG tabletIndicati ons:Hypertensi [...] times daily for insulin injection 300 each 3 Active Aspirin Adult Low Strength 81 MG [...] MOUTH EVERY MORNING 90 tablet 3 Active hydrALAZINE (Apresoline) 100 MG tabletIndicati ons:Hypertensi on, unspecified type TAKE 1 TABLET BY MOUTH TWICE DAILY IN THE MORNING AND IN THE EVENING WITH FOOD 180 tablet 3 Active Continuous Glucose Sensor (FreeStyle Kale 2 [...] USE DIRECTED 4 TIMES DAILY 100 each 024 Active ezetimibe (Zetia) 10 MG tabletIndicati ons:Type 2 diabetes mellitus with chronic kidney disease, with long-term current use of insulin, unspecified CKD stage (CMS/HCC) Take 1 tablet (10 mg) by mouth in the morning. 90 tablet 3 024 Active insulin glargine (Lantus SoloStar) 100 UNIT/ML penIndications :Type 2 diabetes mellitus with chronic kidney disease, with long-term current use of insulin, unspecified CKD stage (CMS/HCC) Inject 24 units subQ once daily 15 mL 024 Active metoprolol tartrate (Lopressor) 100 MG tablet Take 1 tablet (100 mg) by mouth 2 times daily. 60 tablet 024 2024 Active gabapentin (Neurontin) 300 MG capsuleIndicat ions:Hypertens [...] THE EVENING 60 tablet 3 025 Active insulin lispro (HumaLOG) 100 UNIT/ML injectionIndic ations:Type 2 diabetes mellitus with chronic kidney disease, with long-term current use of insulin, unspecified CKD stage (CMS/HCC) INJECT 10 UNITS THREE TIMES DAILY WITH MEALS DIRECTED 15 mL 5 025 Active cetirizine (ZyrTEC) 10 MG tabletIndicati ons:Allergic rhinitis, unspecified seasonality, unspecified trigger TAKE 1 TABLET BY MOUTH EVERY MORNING 90 tablet 1 025 Active famotidine (Pepcid) 20 MG tabletIndicati ons:Hypertensi on, unspecified type,Type 2 diabetes mellitus with chronic kidney disease, with long-term current use of insulin, unspecified CKD stage (CMS/HCC) TAKE 1 TABLET BY MOUTH EVERY EVENING 90 tablet 1 025 Active allopurinol (Zyloprim) 100 MG tabletIndicati ons:Hypertensi on, unspecified type,Type 2 diabetes mellitus with chronic kidney disease, with long-term current use of insulin, unspecified CKD stage (CMS/HCC) TAKE 1 TABLET BY MOUTH EVERY MORNING 90 tablet 1 025 Active Jardiance 25 MGIndications: Type 2 diabetes mellitus with chronic kidney disease, with long-term current use of insulin, unspecified CKD stage (CMS/HCC) TAKE 1 TABLET BY MOUTH EVERY MORNING 90 tablet 025 Active Trulicity 3 MG/0.5ML solution auto-injector INJECT ONE PEN (= 3MG) SUBCUTANEOUSLY ONCE A WEEK DIRECTED 025 Active verapamil SR (Calan SR) 120 MG ER tabletIndicati ons:Throbbing headache TAKE 1 TABLET BY MOUTH AT BEDTIME DO NOT BREAK, CRUSH, DISSOLVE OR CHEW 30 tablet 025 Active verapamil SR (Calan SR) 120 MG ER tabletIndicati ons:Throbbing headache Take 1 tablet (120 mg) by mouth at bedtime. Do not crush or chew. 30 tablet 024 2024 Discontinued dulaglutide (Trulicity) 3 MG/0.5ML solution pen-injectorIn dications:Type 2 diabetes mellitus with chronic kidney disease, with long-term current use of insulin, unspecified CKD stage (CMS/HCC) Inject 3 mg under the skin 1 (one) time per week. 2 mL 024 2024 Discontinued(T herapy completed) insulin lispro (HumaLOG) 100 UNIT/ML injectionIndic ations:Type 2 diabetes mellitus with chronic kidney disease, with long-term current use of insulin, unspecified CKD stage (CMS/HCC) INJECT 10 UNITS SUBCUTANEOUSLY THREE TIMES DAILY WITH MEALS DIRECTED 15 mL 024 2024 Discontinued Jardiance 25 MGIndications: Type 2 diabetes mellitus with chronic kidney disease, with long-term current use of insulin, unspecified CKD stage (CMS/HCC) TAKE 1 TABLET BY MOUTH EVERY MORNING 90 tablet 1 024 2024 Discontinued famotidine (Pepcid) 20 MG tabletIndicati ons:Hypertensi on, unspecified type,Type 2 diabetes mellitus with chronic kidney disease, with long-term current use of insulin, unspecified CKD stage (CMS/HCC) TAKE 1 TABLET BY MOUTH EVERY EVENING 90 tablet 1 024 2024 Discontinued allopurinol (Zyloprim) 100 MG tabletIndicati ons:Hypertensi on, unspecified type,Type 2 diabetes mellitus with chronic kidney disease, with long-term current use of insulin, unspecified CKD stage (CMS/HCC) TAKE 1 TABLET BY MOUTH EVERY MORNING 90 tablet 1 024 2024 Discontinued cetirizine (ZyrTEC) 10 MG tabletIndicati ons:Allergic rhinitis, unspecified seasonality, unspecified trigger TAKE 1 TABLET BY MOUTH EVERY MORNING 90 tablet 1 024 2024 Discontinued Active Problems Problem Noted Date Diagnosed Date Anxiety 04/30/2024 Chronic kidney disease, stage 4 (severe) Hypertension 11/01/2023 Acute right-sided low back pain without sciatica 09/08/2023 Assessment & Plan (09/13/2023 12:31 PM EST): Apply heat on affected area PT referral XRAY Acetaminophen, diclofenac gel and flexeril (patient addiction counselor about side effect somnolence I advise no to drive while on medication) Allergic rhinitis 09/08/2023 Cerebrovascular accident (CVA) 03/18/2022 Overview (11/01/2023): No residual deficits Patient presented to [facility] 10/05/2020 with right upper and lower extremity weakness and found to have multiple infarcts of the wesly, midbrain and posterior bilateral thalami. Random BG was also 680 mg/dL and A1C of 14%. Patient reported non- adherence to insulin therapy. Patient was discharged with clopidogrel 75mg daily and Tulicity 0.75mg subcutaneously weekly. Patient then presented to [facility] 10/08/2020 with similar symptoms and imaging compared to [facility] results showed no significant differences. Patient admitted [...] background DR. Mild background DR. Mild background DR NS- OU. Type 2 diabetes mellitus 02/14/2013 Overview (07/31/2023): Mild background DR NS- OU. F/u Dr. Ba ED. F/u Dr. [...] Encounters Date Type Department Care Team Description 12/20/[address] [facility] [address] [place] [address] Magdaleno Bradshaw MD Throbbing headache 12/10/2024 Refill [facility] [address] [place] [address] Tavon Jj MD Hypertension, unspecified type; Type 2 diabetes mellitus with chronic kidney disease, with long-term current use of insulin, unspecified CKD stage ([facility]) 12/09/[address] [facility] [address] [place] [address] Tavon Jj MD Allergic rhinitis, unspecified seasonality, unspecified trigger; Hypertension, unspecified type; Type 2 diabetes mellitus with chronic kidney disease, with long-term current use of insulin, unspecified CKD stage ([facility]) 12/05/[address] [facility] [address] [place] [address] Tavon Jj MD Type 2 diabetes mellitus with chronic kidney disease, with long-term current use of insulin, unspecified CKD stage ([facility]) 11/26/2024 10:00 AM EDT Office Visit [facility] [address] [place] [address] Alli, Merissa, OD Moderate nonproliferative diabetic retinopathy of both eyes associated with type 2 diabetes mellitus, macular edema presence unspecified ([facility]) (Primary Dx) 11/26/2024 Travel 11/23/2024 Refill [facility] [address] [place] [address] Clover Hernandez MD from Last 3 Months Immunizations Name Administration Dates Next Due Hep B, adult 07/03/2023,01/27/2023,12/30/2022 Influenza Injectable Quadriv alant Preservative Free IIV4 MDCK 05/24/2019 Influenza injectable quadriv alent IIV4 with preservative 06/20/2017,06/24/2016 Influenza injectable quadriv alent preservative free 07/03/2023,05/30/2022,05/26/2021,2019 Influenza, IIV3, injectable 06/02/2015,1 ,05/04/2012,2009,06/01/2009,06/19/2007 Moderna Covid-19 Vaccine 6+ Bivalent 12/30/2022 Novel [id number], preservative-free 09/01/2009 Pneumococcal Conjugate PCV 20 12/20/2022 [...] Description 01/02/2025 1:00 PM EDT Office Visit [facility] [address] [place] [address] Alli, Merissa, OD [address] [place] [address] Health Maintenance Due Date Last Done Comments [...] Additional history exists Lipid Panel 11/01/2024 11/02/2023, 0402/2023, 12/22/2022, Additional history exists Alcohol/Substance Use Screening 2025 2024 Depression Screening 2025 2024, 03/22/20 24 Eye Exam 06/06/2025 06/06/2024 Tobacco Screening 12/09/2025 12/09/2024 Colonoscopy 08/01/2027 08/01/2024, 12/2023, 12/14/2023, Additional history exists Colorectal Cancer Screening [...] Component 9.2( 4 2:57 PM EDT) No Puia, Rachel, PharmD Record your blood sugar as directed Result Component No Brieia, Rachel, PharmD Note: Use CGM, ensuring sensor is scanned at least once every 8 hours to capture 24H data. Check BG manually, as required. Procedures Procedure Name Priority Date/Time Associated Diagnosis Comments FUNDUS PHOTOS - OU - BOTH EYES Routine 11/26/2024 10:00 AM EDT Moderate nonproliferative diabetic retinopathy of both eyes associated with type 2 diabetes mellitus, macular edema presence unspecified (CMS/HCC) COLONOSCOPY Routine 08/01/2024 POCT GLYCATED HEMOGLOBIN, TOTAL [...] Recently Relevant to Health Maintenance Results * Fundus Photos - OU - Both Eyes (11/26/2024 10:00 AM EDT) Narrative Merissa Carson, OD - 12/09/2024 3:38 PM EDT Images from the original result were not included. Right Eye Disc findings include normal observations (0.2/0.2). Macula findings include (Obscured in photo). Vessel findings include normal observations. Periphery findings include (Scattered hemes and exudates throughout posterior pole). Left Eye Disc findings include normal observations (0.1/0.1). Macula findings include (Obscured in photo). Vessel findings include normal observations. Periphery findings include (Scattered hemes and exudates throughout posterior pole). Notes Assessment and Plan: Moderate non-proliferative diabetic retinopathy (NPDR) in both eyes. Unable to tell whether there is suspicion for macular edema due to quality of photos. Will have patient return for a dilated exam. us Merissa Carson OD OPHTH PHOTOGRAPHY Final Resul t * (ABNORMAL) Colonoscopy (08/01/2024) Colonoscopy Abnormal( A) Normal Comment:repeat in 3 years us Historical Provider HEALTH MAINTENANCE Edited Result - Final * (ABNORMAL) POCT HGB A1C (2024 2:57 PM EDT) Hemoglobin A1C 9.2(A) 4.0 - 6.0 % QC Media Lot # [id number] Lot# Expiration Date 026 Blood 2024 2:57 PM EDT us Montes De Oca Name POINT OF CARE TEST ENTER/EDIT OR DERABLES Final Result * (ABNORMAL) Lipid Panel, Standard (11/02/2023 12:11 PM EST) Triglycerides 243(H) <150 mg/dL [facility] Comment:Desirable Triglyceri de: less than 150 mg/dLBorderline High Triglyceride 150-199 mg/dLHigh Triglyceride: 200-499 mg/dLVery High Triglyceride: greater than or equal to 5OO mg/dL Cholesterol 143 <200 mg/dL [facility] Comment:Desirable Cholestero l: less than 200 mg/dLBorderline High Cholesterol: 200-239 mg/dLHigh Cholesterol: greater than 239 mg/dL LDL Cholesterol Calculated 63 <100 mg/dL [facility] Comment:Desirable LDL: less than 100 mg/dLNear Optimal/Above Optimal LDL: 110- 129 mg/dLBorderline High LDL: 130-159 mg/dLHigh LDL: 160-189 mg/dLVery High LDL: greater than or equal to 190 mg/dL HDL Cholesterol 32(L) >40 mg/dL [facility] Comment:Desirable HDL: great er than 40 mg/dL Note: This HDL assay may give artificially low results in patients with liver disease. Blood Venous blood specimen / Unknown 11/02/2023 12:11 PM EST 11/02/2023 3:59 PM EST us Tavon Jj MD LAB BLOOD ORDERABLES Final Resul t [facility] [address] [place] [address] [phone] from Last 3 Months or Most Recently Relevant to Health Maintenance Insurance [facility] DUAL COMPLETE HMO Care Teams Ramp Attendant Relationship Specialty Start Date End Date Name, MD Tavon [address] [place] [id number] PCP - General Family Medicine 02/25/16
--- OUTSIDE RECORDS SUMMARY | 2024-12-27 11:49 | XMS_ITS | Encounter Summary ---
Demographics Address [address] [facility] [address] [place] [address] Work Phone Mobile Phone Email Address m Preferred Language en Marital Status Single Quaker Affiliation Unknown Race Black or Lulu rican Ethnic Group Not or Lati no Author Organization [employer] Address [address] [facility] [address] [place] [address] Care Team Providers Care Field Test Engineer Name Role Phone Name, Tavon PASTOR Primary Care Provider [phone] Reason for Visit * Reason Onset Date Comments Med Refill 04/17/2024 Encounter Details Date Type Department Care Team (Late st Contact Info) Description 04/17/2024 Refill [facility] [address] [place], [place] [id number] Kate Gilmore, JAZMIN [address] [place] [address] Type 2 diabetes mellitus with chronic kidney [...] Description 01/02/2025 1:00 PM EDT Office Visit [facility] [address] [place] [address] Alli, Merissa, OD [address] [place] [address] documented as of this encounter Goals Goal [...] documented as of this encounter Care Teams Field Test Engineer Relationship Specialty Start Date End Date Name, MD Tavon [address] [place] [address] PCP - General Family Medicine 02/25/16 documented as of this encounter
--- OUTSIDE RECORDS SUMMARY | 2024-12-27 11:49 | XMS_ITS | Encounter Summary ---
Demographics Address [address] [facility] [address] [place] [address] Work Phone Mobile Phone Email Address Preferred Language en Marital Status Single Jehovah'S Witness Affiliation Unknown Race Black or Lulu rican Ethnic Group Not or Lati no Author Organization [employer] Address [address] [facility] [address] [place] [address] Care Team Providers Care Massage Therapy Instructor Name Role Phone Name, Tavon PASTOR Primary Care Provider [phone] Rachel King PharmD Unavailable [phone] Encounter Details Date Type Department Care Team ([facility] Contact Info) Description 02/06/2023 Abstract [facility] [address] [place] [address] Name, MD Tavon [address] [place] [address] Social History Tobacco Use Types Packs/Day Years [...] Description 01/02/2025 1:00 PM EDT Office Visit [facility] [address] [place] [address] Merissa Carson, OD [address] [place] [address] documented as of this encounter Goals Goal Patient Goal Type Associated Problems Recent Progress Patient-Stated? Author Hemoglobin A1c < 7 Result Component 9.2( 4 2:57 PM EDT) No Puia, Rachel, PharmD Record your blood sugar as directed Result Component No Puena Rachel, PharmD Note: Use CGM, ensuring sensor is scanned at least once every 8 hours to capture 24H data. Check BG manually, as required. documented as of this encounter Procedures Procedure Name Priority Date/Time Associated Diagnosis Comments COLONOSCOPY Routine 04/25/2016 9:25 AM EDT documented in this encounter Results * Hm Colonoscopy (04/25/2016 9:25 AM EDT) Colonoscopy Normal Normal Narrative Janette Prince - 04/25/2016 9:25 AM EDT Recommended 5 year follow up us Historical Provider HEALTH MAINTENANCE Final Result documented in this encounter Visit Diagnoses Not on filedocumented in this encounter Care Teams Massage Therapy Instructor Relationship Specialty Start Date End Date Name, MD Tavon [address] [place] [address] PCP - General Family Medicine 02/25/16 Rachel King, PharmD [address] [place] [address] Pharmacist Internal Medicine 12/05/22 03/19/24 documented as of this encounter
[2024-12-27 13:12] LABS: MANUAL DIFF FLAG NO
[2024-12-27 13:35] LABS: Appearance Urine Clear; Color Urine Yellow; Glucose Urine UA >=1000 mg/dL (Negative); Leukocyte Esterase Urine Negative (Negative); Nitrite Urine Negative (Negative); PH 5.5 (5.0-9.0); Specific Gravity - Urine 1.015 (1.005-1.025); UMIC TRIGGER UA YES; Urine Blood Negative (Negative); Urine Ketones Negative (Negative); Urine Protein 100 (2+) mg/dL (Neg-Trace)
[2024-12-27 13:39] LABS: Bacteria Urine None Seen (None Seen); Hyaline Casts Urine 0-2 /LPF (0-2); RBC Urine 0-2 /HPF (0-2); Squamous Epithelial Cell Urine 0-2 /HPF (0-2); WBC Urine 0-5 /HPF (0-5)
[2024-12-27 13:45] LABS: Creatinine Urine 36.94 mg/dL; Total Protein Urine Random 73 mg/dL (<12)
[2024-12-27 13:50] LABS: Basophils Percent Auto 0.6 % (0-2); Eosinophils Absolute Auto 0.3 X10*3/uL (0.0-0.4); Eosinophils Percent Auto 4.5 % (0-4); Hematocrit 40.8 % (42.0-52.0); Hemoglobin 12.5 g/dl (14.0-18.0); Imm Gran Abs Auto 0.03 X10*3/uL (0.00-0.03); Imm Gran Pct Auto 0.5 % (0.0-0.4); Lymphocytes Absolute Auto 1.8 X10*3/uL (1.2-4.9); Mean Corpuscular HGB Conc 30.6 g/dl (31.0-36.0); Mean Corpuscular Hemoglobin 24.7 pg (27.0-33.0); Mean Corpuscular Volume 80.6 fL (80.0-98.0); Mean Platelet Volume 10.7 fL (9.4-12.4); Monocytes Absolute Auto 0.5 X10*3/uL (0.1-1.2); Monocytes Percent Auto 8.2 % (2-11); Neutrophils Absolute Auto 3.8 x10*3/uL (2.0-8.3); Neutrophils Percent Auto 58.2 % (45-73); Platelet Count 213 X10*3/uL (160-400); Red Blood Count 5.06 X10*6/uL (4.60-5.80); Red Cell Distribution Width 14.8 % (11.0-16.0); White Blood Count 6.4 X10*3/uL (4.8-10.8)
[2024-12-27 13:57] LABS: Microalbum/Creatinine Ratio Ur 1594.4 ug/mg cr (<30)
[2024-12-27 14:15] LABS: Parathyroid Hormone Intact 105.4 pg/mL (8.7-77.1)
[2024-12-27 16:38] LABS: Albumin Level 4.4 g/dL (3.5-5.0); Anion Gap 14 (12-20); Blood Urea Nitrogen 36 mg/dL (9-16); Calcium 9.6 mg/dL (8.4-10.2); Carbon Dioxide 31 mmol/L (22-29); Chloride 102 mmol/L (96-108); Estimated Glomerular Filt Rate 31; Magnesium 2.6 mg/dL (1.6-2.6); Potassium 3.7 mmol/L (3.3-5.1); Sodium 143 mmol/L (135-145)
== END 2024-12-27 10:42 | disposition home or self-care (01) ==
LOC: HO.HHCL 10:41
PROVIDERS: Visit Provider Internal Medicine Nephrology
DX: N18.32 Chronic kidney disease, stage 3b (principal); N25.0 Renal osteodystrophy; E11.22 Type 2 diabetes mellitus with diabetic chronic kidney disease
CPT/HCPCS: 36415; 80051; 81001; 82040; 82043; 82306; 82310; 82565; 82570; 83735; 83970; 84100; 84156; 84520; 85025

== ENCOUNTER 2025-01-28 06:17 | Outpatient (REF) | payer MEDICARE, MEDICAID, SELFPAY ==
--- NOTE | ~2025-01-28 | FL_ITS ---
EXAMINATION: FL GUIDANCE ONLY HISTORY: G58.9 - Mononeuropathy, unspecified COMPARISON: None available. TECHNIQUE: Fluoroscopy time: 0.7 minutes. Cumulative Dose: 11.1 mGy. DAP: 0.192 mGym2 Images: 3. FINDINGS: Images demonstrate needles and contrast material overlying the left iliac crest and upper sacrum. FL/FL guidance in treatment room IMPRESSION: Fluoroscopy during procedure. Please see procedure report for additional information. Electronically signed by: Irvin Lares MD 01/28/2025 03:49 PM EDT
--- OUTSIDE RECORDS SUMMARY | 2025-01-28 06:19 | XMS_ITS | Encounter Summary ---
Author Organization [facility] Address [address] [place] [address] Care Team Providers Care Family Resource Management Professor Name Role Phone Perry Belcher MD Primary Care Provider Un available Name, Tavon PASTOR Primary Care Provider Unavailabl e Reason for Visit * Reason Onset Date Comments Medication 11/23/2015 Encounter Details Date Type Department Care Team Description 11/23/2015 Telephone Adult Medicine [address] [address] Perry Belcher MD Medication Social History Tobacco [...] to him about the new findings with care home pain medication and the new guidelines, and [...] on filedocumented in this encounter Care Teams Family Resource Management Professor Relationship Specialty Start Date End Date Perry Belcher MD PCP - General Internal Medicine 11/11/15 Tavon Jj MD PCP - General Internal Medicine 04/17/17 documented as of this encounter
== END 2025-01-28 06:18 | disposition home or self-care (01) ==
LOC: CF 06:17
PROVIDERS: Visit Provider Anesthesiology
DX: G58.9 Mononeuropathy, unspecified (principal)
CPT/HCPCS: 64450; 77002; J2003; J2795; Q9967

== ENCOUNTER 2025-01-28 12:36 | Outpatient (AMB) | payer MEDICARE, MEDICAID, SELFPAY ==
[2025-01-28 12:51] VITALS: BP 150/90; PULSE 88; RESP 18; O2SAT 100
--- NOTE | 2025-01-28 12:51 | MHC.OFFVIS ---
Vital Signs 01/28/25 12:51 01/28/25 13:23 Weight 248 lb BP 150/90 H 159/89 H Blood Pressure Location Lt brachial Lt brachial Position Sitting Sitting Respiration 18 18 Pulse 88 86 Pulse Source Pulse Oximeter Pulse Oximeter Pulse Oximetry (%) 100 100 Oxygen Delivery Method Room Air Room Air Intake Visit Reasons: LEFT DIAGNOSTIC CLUNEAL NERVE BLOCK Slurry Plant Operator Required: No Allergies oxycodone [OXYCODONE] Allergy (Unknown, Verified 01/28/25 12:52) [facility] Medical History (Updated 11/25/24 @ 13:47 by José Gamboa MD) Tubular adenoma Winter esophagitis Hypercholesteremia HTN (hypertension) Diabetes mellitus CKD (chronic kidney disease) Surgical History History of esophagogastroduodenoscopy (EGD) H/O colonoscopy Family History Mother Thyroid cancer Brother Cancer of spine Brother Prostate cancer Father Cancer Social History Alcohol intake: former Comment: was social drinker Patient Tobacco Use Status: Former Tobacco user Physical Exam Vital Signs: Last Vital Signs Pulse 86 01/28/25 13:23 Resp 18 01/28/25 13:23 BP 159/89 H 01/28/25 13:23 Pulse Ox 100 01/28/25 13:23 Oxygen Delivery Method Room Air 01/28/25 13:23 Assessment & Plan Assessment & Plan (1) Mononeuropathy, unspecified: Code(s): G58.9 - Mononeuropathy, unspecified Category: Medical Plan left diagnostic cluneal nerve block Informed consent was explained to the patient. All questions were explained and? answered. The patient was taken inside the operating room where he was positioned prone on the operating table.? Time-out was performed delineating correct site, side, the nature of the procedure, patient's allergy, preoperative antibiotic if needed.? All operating room staff was participating in OR time-out procedure.? The patient stated his name. the left lower back and left upper buttock were prepped with ChloraPrep and draped with sterile utility towels. After that C-arm was brought over the operating field and picture of left iliac crest with demonstrated on the screen. Starting from the most superior portion of the iliac crest 10 needles were used to go through the skin and advanced to were silhouette of the iliac crest 1 cm apart. When each needle gently contacted the bone injection of the contrast was performed demonstrating no intravascular and no peritoneal retroperitoneal sprint of the contrast. After that 1 cc of preservative-free ropivacaine 0.5% was injected into each needle positioned. Upon completion of the injection needles were removed Band-Aid was applied. The patient tolerated the procedure well. Orders: Orders FL guidance in treatment room Today G58.9 - Mononeuropathy, unspecified Coding Level of Care Code Procedure Only Diagnoses Mononeuropathy, unspecified G58.9
[2025-01-28 13:23] VITALS: BP 159/89; PULSE 86; RESP 18; O2SAT 100
== END 2025-01-28 13:24 | disposition home or self-care (01) ==
LOC: HO.PMCPRC 12:36
PROVIDERS: PCP Internal Medicine Geriatric Medicine; Visit Provider Anesthesiology
DX: G58.9 Mononeuropathy, unspecified (principal)
CPT/HCPCS: 64450; 77002

== ENCOUNTER 2025-06-13 14:59 | Outpatient (AMB) | payer MEDICARE, MEDICAID, SELFPAY ==
[2025-06-13 15:21] VITALS: BP 131/82; PULSE 71; O2SAT 97; BMI 36.9
--- NOTE | 2025-06-13 15:21 | MHC.OFFVIS ---
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 The pain has been persistent and unresponsive to previous interventions, including diagnostic cluneal nerve blocks and diagnostic medial branch blocks, which provided no significant relief. The pain is localized to the left side of the back along the iliac crest, consistent with the area of previous injections, and remains unchanged in intensity. The patient has not undergone an MRI of the back, which is being considered as the next step in the diagnostic process. He is currently managing the pain with Tramadol, as he cannot take NSAIDs due to kidney issues. Additional pain management strategies, such as lidocaine patches and muscle relaxants, are being explored to provide symptomatic relief. - Onset: Persistent pain with no significant relief from previous interventions - Quality: Unchanged in intensity, localized to the left side of the back - Exacerbating factors: None specified - Relieving factors: None identified from previous interventions - Interference: Pain affects daily activities, causing discomfort during sleep - Affect: Pain impacts sleep, causing discomfort - Analgesia: Currently using Tramadol; exploring lidocaine patches and muscle relaxants - Adverse Effects: Unable to use NSAIDs due to kidney issues - Activities of Daily Living: Pain interferes with sleep and daily comfort - Aberrant Drug Related Behaviors: None reported ON LICENSE OF [facility] Medical History (Updated 06/13/25 @ 15:38 by Cassidy Carpenter, COILED COIL INSPECTOR, FORKL[employer] MATERIAL HANDLER) Tubular adenoma Winter esophagitis Hypercholesteremia HTN (hypertension) Diabetes mellitus CKD (chronic kidney disease) Surgical History History of esophagogastroduodenoscopy (EGD) H/O colonoscopy Family History Mother Thyroid cancer Brother Cancer of spine Brother Prostate cancer Father Cancer Social History Alcohol intake: former Comment: was social drinker Patient Tobacco Use Status: Former Tobacco user Review of Systems Const Details: - Musculoskeletal: Reports persistent back pain, localized to the left side - Neurological: Denies any new neurological symptoms Physical Exam Exam Exam: General: awake, alert, oriented. Answers questions appropriately. Fully engaged in examination. Skin: warm, dry, intact HEENT: Normocephalic. Hearing intact. Cardiac: External chest normal in appearance. Respiratory: No cough, audible wheezing or stridor. Abdomen: without gross distension. MS: No obvious swelling or deformities. Able to transition from sit to stand unassisted. Ambulates with bilaterally normal heel strike and toe off Facet loading positive SLR negative bilaterally Tender along left iliac crest Neurological: Oriented to person, place, time and situation. Thought process intact. No gait abnormalities appreciated. Psychiatric: Appropriate mood and affect. Good judgment and insight. Vital Signs: Last Vital Signs Pulse 71 06/13/25 15:21 BP 131/82 06/13/25 15:21 Pulse Ox 97 06/13/25 15:21 Oxygen Delivery Method Room Air 06/13/25 15:21 BMI result Body Mass Index 36.9 Results Reviewed Results Reviewed: 09/11/23 EXAMINATION: XR LUMBOSACRAL SPINE FINDINGS: Lumbar lordotic straightening. Vertebral body heights and disc spaces are maintained. Pedicles and SI joints within normal limits. No significant hip joint narrowings. Vascular calcifications. IMPRESSION: Lumbar lordotic straightening. Assessment & Plan Assessment & Plan (1) Lumbar spondylosis: Code(s): M47.816 - Spondylosis without myelopathy or radiculopathy, lumbar region Category: Medical (2) Intractable back pain: Code(s): M54.9 - Dorsalgia, unspecified Category: Medical Plan The plan involves obtaining an MRI of the back to further evaluate the cause of the chronic pain, as previous diagnostic injections have not provided relief. In the interim, the patient will continue using Tramadol for pain management and explore additional options such as lidocaine patches and muscle relaxants to alleviate symptoms. Follow-up will be scheduled after the MRI to discuss the results and adjust the treatment plan accordingly. Patient was informed and verbally consented to the use of an ambient scribe for clinic note documentation during this visit. Orders: Orders MR lumbar spine wo con 06/13/25 M47.816 - Spondylosis without myelopathy or radiculopathy, lumbar region, M54.9 - Dorsalgia, unspecified Medications: New methocarbamol No driving while taking this medication. Do no take with alcohol or other JUNIOR NETWORK ENGINEER Depressants 500 mg PO TID PRN 90 tabs 1RF muscle spasm Patient Instructions: - Continue taking Tramadol as prescribed for pain management. - Try using lidocaine patches or muscle relaxants as discussed to help relieve pain. - Schedule and complete the MRI as soon as possible. - Follow up with the doctor after the MRI to discuss results and next steps. Coding Level of Care Code Est Pt Level 3 (25890) Complex EM visit Add On G2211 Diagnoses Lumbar spondylosis M47.816 Intractable back pain M54.9
== END 2025-06-13 15:33 | disposition home or self-care (01) ==
LOC: HO.PMC 15:00
PROVIDERS: PCP Internal Medicine Geriatric Medicine; Visit Provider Registered Nurse Emergency
DX: M47.816 Spondylosis without myelopathy or radiculopathy, lumbar region (principal); M54.9 Dorsalgia, unspecified
CPT/HCPCS: 99213; G2211

== ENCOUNTER → 2025-06-13 14:59 | Outpatient (BNVA) | payer MEDICARE, MEDICAID, SELFPAY | PROVIDERS: PCP Internal Medicine Geriatric Medicine; Visit Provider Registered Nurse Emergency | DX: M54.50 Low back pain, unspecified (principal); M47.816 Spondylosis without myelopathy or radiculopathy, lumbar region; G89.29 Other chronic pain | CPT/HCPCS: 99212 ==